=== PATIENT | female | born 1965 | race Caucasian/White ===

== ENCOUNTER 2020-03-08 17:41 | Outpatient (REF) | payer BC, SELFPAY ==
--- NOTE | 2020-03-08 17:46 | MM_ITS ---
EXAMINATION: MM SCREENING DIGITAL MAMMOGRAPHY, BILATERAL CLINICAL INFORMATION: Screening. Asymptomatic. The lifetime risk of breast cancer based on the Tyrer-Cuzick Model is 7%. COMPARISON: Mammography: 09/12/2016, 08/13/2014 TECHNIQUE: Digital mammography is performed in craniocaudal and mediolateral oblique views along with computer-aided detection (CAD). Additional exaggerated left CC view is provided. FINDINGS: There are scattered areas of fibroglandular density (ACR BI-RADS breast composition Category b). There are no significant masses, abnormal calcifications, or other abnormalities. The axilla and skin contours are unremarkable. IMPRESSION: No mammographic evidence of malignancy. ASSESSMENT: BI-RADS 1: Negative RECOMMENDATION: Routine annual mammography screening. This patient's information was entered into a reminder system with a target due date for their next mammogram.
== END 2020-03-08 17:42 | disposition home or self-care (01) ==
LOC: HO.MAMMO 17:41
PROVIDERS: PCP Internal Medicine; Visit Provider Internal Medicine
DX: Z12.31 Encounter for screening mammogram for malignant neoplasm of breast (principal)
CPT/HCPCS: 77067

== ENCOUNTER 2020-03-17 00:46 | Emergency (ER) | payer BC, SELFPAY ==
[2020-03-17 00:55] VITALS: BP 122/80; PULSE 90; RESP 16; TEMP 35.8; O2SAT 97; BMI 38.5
--- NOTE | 2020-03-17 02:12 | ED.GENADULT ---
HPI - General Adult General Chief complaint: Upper Respiratory Symptoms Stated complaint: Sore throat/sob/body aches Time Seen by Provider: 03/17/20 02:04 Source: patient Mode of arrival: ambulatory Limitations: no limitations History of Present Illness HPI narrative: Patient comes in complaining of sore throat for a few days. Her grandson and sever the family members tested positive for COVID-19, requesting coming 19 test. Patient denies fever chills no cough no shortness of breath complaint: upper respiratory symptoms, sore throat, requesting COVID test Onset (ago): day(s) Related Data Allergies Allergy/AdvReac Type Severity Reaction Status Date / Time No Known Allergies Allergy Unverified 02/19/20 16:57 [No Known Allergies*] Review of Systems Review of Systems: Constitutional : No Weight loss, No Fever, No Chills, No Night Sweats, of fatigue and generalized ENT/Mouth : No Hearing loss, No Ear Pain, No Nasal Congestion, No Sinus Pain, No Hoarseness, moderate sore throat, No Rhinorrhea, No Swallowing Difficulty Eyes: No Eye Pain, No Swelling, No Redness, No Foreign Body, No Discharge, No Vision Changes Cardiovascular : No Chest Pain, No SOB, No Dyspnea on Exertion, No Orthopnea, No Edema, No Palpitations Respiratory : No Cough, No Sputum, No Wheezing, No Smoke Exposure, No Dyspnea Gastrointestinal : No Nausea, No Vomiting, No Diarrhea, No Constipation, No abdominal Pain, No Hematochezia, No Melena Genitourinary : no irregular bleeding, No Dysuria, No Urinary Frequency, No Hematuria, No Urinary Incontinence, No Urgency, No Flank Pain, No Urinary Flow Changes, No Hesitancy Musculoskeletal : No joint pain, No Myalgias, No Joint Swelling Skin : No Skin Lesions, No rash Neuro : No Weakness, No Numbness, No Paresthesias, No Loss of Consciousness, No Dizziness, No Headache Psych : No Anxiety/Panic, No Depression, No SI/HI/AH/VH, No Social Issues, Heme/Lymph: No Bruising, No Bleeding,No Lymphadenopathy Endocrine : No Polyuria, No Polydipsia, No Temperature Intolerance PMFSH Social History Social History Advance Directives: No Advance Directives Information Provided: No Physical Exam Vital Signs: Vital Signs: Vital Signs Temp Pulse Resp BP Pulse Ox 03/17/20 00:55 96.5 F L 90 16 122/80 97 Body Mass Index 38.5 Appearance: Alert. Oriented X3. No acute distress. Eyes: Pupils equal, round and reactive to light. ENT: Pharynx normal. Neck: Normal inspection. Neck supple. No lymph nodes noted. No crepitus CVS: Normal heart rate and rhythm. Pulses normal. Normal S1 and S2 Respiratory: No respiratory distress. Breath sounds normal. No Wheezing. No rales Abdomen: Soft and nontender. No rigidity. No distention. good BS x4 Skin: Skin warm and dry. Normal skin color. Normal skin turgor. Extremities: No lower extremity edema. No lower extremity edema. No Lacerations. No Rash Neuro: Oriented X 3. No motor deficit. No sensory deficit. Moving all extermities. No slurred speech. Medical Decision Making MDM Narrative Medical decision making narrative: I discussed with the patient that she will Be tested for COVID-19, patient instructed to follow-up with her primary care physician. Differential Diagnosis Differential Diagnosis: upper respiratory infection Discharge Plan Discharge Clinical Impression: Viral infection, Pharyngitis Patient Disposition: Home, Self-Care Instructions: Viral Syndrome (ED) Additional Instructions: please remain self isolated until you get your COVID-19 results. Stand Alone Forms: Work/School Release
== END 2020-03-17 02:43 | disposition home or self-care (01) ==
PROVIDERS: Emergency Provider Emergency Medicine; PCP Internal Medicine
DX: B34.9 Viral infection, unspecified (principal); J02.9 Acute pharyngitis, unspecified; Z20.828 Contact with and (suspected) exposure to other viral communicable diseases
CPT/HCPCS: 87635; 99283

== ENCOUNTER 2020-06-18 10:56 | Emergency (ER) | payer BC, SELFPAY ==
[2020-06-18 11:27] VITALS: BP 131/86; PULSE 92; RESP 18; TEMP 36.8; O2SAT 98; BMI 39.0
--- NOTE | 2020-06-18 12:16 | ECG_ITS ---
Test Reason : DIZZYNESS Blood Pressure : / mmHG Vent. Rate : 087 BPM Atrial Rate : 087 BPM P-R Int : 148 ms QRS Dur : 082 ms QT Int : 392 ms P-R-T Axes : 046 030 045 degrees QTc Int : 471 ms Sinus rhythm with occasional Premature ventricular complexes Otherwise normal ECG When compared with ECG of 08-MAY-2018 10:45, Premature ventricular complexes are now Present Referred By: Joleen Glynn Electronically Signed By:VALENTE SIMONS MD
--- NOTE | 2020-06-18 12:17 | CT_ITS ---
EXAMINATION: CT BRAIN AND CT CERVICAL SPINE WITHOUT CONTRAST. CLINICAL INFORMATION: Dizziness. COMPARISON: None TECHNIQUE: 5 mm thin axial and reformatted 2 mm thin sagittal and coronal images of abdomen were obtained. Subsequently axial 3 mm thin and reformatted 2 mm thin sagittal and coronal images of cervical spine were obtained. DLP [id number] FINDINGS: BRAIN: There is no acute intra-axial, extra-axial bleed, masses or midline shift. There is no acute infarction in evolution. The garrido to white matter differentiation is preserved. The lateral ventricles are symmetrical in size and configuration without enlargement. The garrido to white matter difference is maintained. Bone windows reveal reveal no calvarial abnormality. There is no scalp soft tissue abnormality. Bilateral paranasal sinuses and mastoid air cells are well-aerated. CERVICAL SPINE: On sagittal reconstructed images there is mild straightening of cervical lordosis. The vertebral heights and alignment appears normal. Mild loss of C4-C5 and C5-C6 disc heights with mild ventral and posterior spondylosis. Craniovertebral junction and C1-C2 alignment is normal. No visible acute fracture, dislocation or subluxation seen. The prevertebral and paravertebral soft tissues are normal. The thyroid gland has been surgically removed. Submandibular and partially visualized parotid glands are unremarkable. The airway is widely patent. The lung apices are clear. CT/CT cervical spine wo con IMPRESSION: No acute intracranial process seen. No visible acute fracture, dislocation or subluxation of cervical spine.
--- NOTE | 2020-06-18 12:30 | ED.DIZZY ---
HPI - Dizziness General Chief Complaint: Dizziness Stated Complaint: dizziness Time Seen by Provider: 06/18/20 12:15 Source: patient Mode of arrival: ambulatory Limitations: no limitations History of Present Illness HPI Narrative: 55 y/o female with history of DM, HTN, hyperthyroidism, migraines, kidney stones, HLD who presents with episodic dizziness that started yesterday morning. She states it feels like the room is spinning and she gets very lightheaded, especially when she moves her head to the right. She also reports right sided neck pain that is extending into the back of her head and causing a fullness/headache. She denies trauma. She denies numbness, weakness. She feels unsteady on her feet when she gets up too fast. She has been eating/drinking normally. No fever, chills, N/V/D. MD elicited complaint: dizziness Onset (ago): day(s) Timing: awoke with symptoms, intermittent and episodic Severity: moderate Description: sense of movement, room spinning and lightheadedness History of similar symptoms: No Exacerbating factors: movement/ambulation and change in body position Relieving factors: remaining still and keeping eyes closed Associated symptoms: denies other symptoms Related Data Previous Rx's Medication Instructions Recorded amoxicillin-pot clavulanate 1 tab PO BID #14 tab 06/18/20 [Augmentin] cyclobenzaprine 10 mg PO TID PRN #10 tab 06/18/20 meclizine 25 mg PO TID PRN #10 tab 06/18/20 Allergies Allergy/AdvReac Type Severity Reaction Status Date / Time No Known Allergies Allergy Unverified 02/19/20 16:57 [No Known Allergies*] Review of Systems Review of Systems: Constitutional: No Fever, No Chills ENT/Mouth: No sore throat, No Rhinorrhea, No Swallowing Difficulty Eyes: No Eye Pain, No Swelling, No Redness Cardiovascular: No Chest Pain, No SOB, No Orthopnea, No Edema Respiratory: No Cough, No Sputum, No Wheezing, No dyspnea Gastrointestinal: No Nausea, No Vomiting, No Diarrhea, No abdominal Pain Genitourinary: No Dysuria, No Urinary Frequency, No Hematuria Musculoskeletal: No joint pain, + Myalgias (right neck) Skin: No Skin Lesions, No rash Neuro: No Weakness, No Numbness, + Dizziness, + Headache Psych: No Anxiety/Panic, No Depression Heme/Lymph: No Bruising, No Lymphadenopathy Endocrine: No Polyuria, No Polydipsia [facility] Past Medical History Attestation statement: The following information was validated with the patient. Medical History Cervical dysplasia Diabetes Hypertension Hyperthyroidism Kidney stones Social History Social History Alcohol intake: never Smoked in Last 30 Days: No Use of substances other than those prescribed or required for medical reasons: No Advance Directives: No Advance Directives Information Provided: No Physical Exam Vital Signs: Vital Signs: Last Vital Signs Temp 98.3 F 06/18/20 11:27 Pulse 88 06/18/20 15:19 Resp 18 06/18/20 11:27 BP 151/91 H 06/18/20 15:19 Pulse Ox 98 06/18/20 11:27 Body Mass Index 39.0 Appearance: Alert. Oriented X3. No acute distress. Eyes: Pupils equal, round and reactive to light. ENT: Pharynx normal. Right TM with fluid behind TM, no ertythema or bulging, Neck: Normal inspection. right lateral neck with tenderness along SCM and posterior soft tissues. painful ROM to the left. no cervical spinal tenderness. CVS: Normal heart rate and rhythm. Pulses normal. Respiratory: No respiratory distress. Breath sounds normal. Abdomen: Soft and nontender. +BS x4 Skin: Skin warm and dry. Normal skin color. Normal skin turgor. No rashes. Extremities: No lower extremity edema. Neuro: Oriented X 3. No motor deficit. No sensory deficit. Normal finger to nose and normal heel to adams bilaterally. Gait is steady Course Course Course Narrative: 55 y/o female presenting wtih episodic dizziness and feeling like the room is spinning. History and exam consistent with vertigo - will give dose of Meclizine now and reassess. Will check basic labs and CT scan to r/o CVA although suspicion is low. Her neuro exam is benign. Reevaluation(s) Reevaluation #1: CT head/cervical spine is negative. She feels improved after Meclizine. Labs are pending. Reevaluation #2: Labs show mild new anemia with normal MCV. BUN mildly elevated consistent with mild dehydration. Given 2nd dose of Meclizine with some improvement. Given fluid behind the TM will treat, likely causing BPPV. She is stable for discharge. [facility] - Dizziness Medical Records Attestation: I reviewed the patient's medical records. Lab Data Attestation: I reviewed the patient's lab results. Result diagrams: 06/18/20 14:13 06/18/20 14:13 Labs: Lab Results 06/18/20 06/18/20 06/18/20 Range/Units 14:13 14:13 14:13 WBC 11.0 H (4.8-10.8) X10*3/uL RBC 3.52 L (4.20-5.50) X10*6/uL Hgb 10.8 L (12.0-16.0) g/dl Hct 33.5 L (37-47) % MCV 95.2 (80-98) fL MCH 30.7 (27.0-33.0) pg MCHC 32.2 (31.0-35.0) g/dl RDW 12.4 (11.0-16.0) % Plt Count 280 (160-400) X10*3/uL MPV 11.6 (9.4-12.3) fL Immature Gran % (Auto) 0.5 H (0.0-0.4) % Neut % (Auto) 66.2 (45-73) % Lymph % (Auto) 25.0 (20-40) % Stonewall % (Auto) 4.0 (2-11) % Eos % (Auto) 3.7 (0-4) % Baso % (Auto) 0.6 (0-2) % Lymph # (Auto) 2.8 (1.2-4.9) X10*3/uL [place] # (Auto) 0.4 (0.1-1.2) X10*3/uL Eos # (Auto) 0.4 (0.0-0.4) X10*3/uL Baso # (Auto) 0.1 (0.0-0.2) X10*3/uL Abs Immat Gran (auto) 0.06 H (0.00-0.03) X10*3/uL Absolute Neuts (auto) 7.3 (2.0-8.3) X10*3/uL Absolute Nucleated RBC 0.000 (0.0-0.012) X10*3/uL Nucleated RBC % (auto) 0.0 (0.0-0.2) /100WBC Hold Blue Top SEE NOTE Sodium 141 (135-145) mmol/L Potassium 4.3 (3.3-5.1) mmol/l Chloride 106 (96-108) mmol/L Carbon Dioxide 25 (22-29) mmol/L Anion Gap 14 (12-20) BUN 29 H (9-16) mg/dL Creatinine 0.96 (0.5-1.4) mg/dL Estim Creat Clear Calc 84.0 Estimated GFR > 60 Random Glucose 157 H (60-115) mg/dL Calcium 9.1 (8.4-10.2) mg/dL Magnesium 1.6 (1.6-2.6) mg/dL Total Bilirubin 0.3 (0.0-1.0) mg/dL Direct Bilirubin < 0.2 (0.0-0.5) mg/dL AST 12 (5-31) U/L ALT 16 (0-31) U/L Alkaline Phosphatase 95 (39-117) U/L Total Protein 6.7 (6.5-8.0) g/dL Albumin 4.0 (3.5-5.0) g/dL COVID-19 (FELIPE) (Negative) COVID-19 Clin Com 06/18/20 Range/Units 15:24 WBC (4.8-10.8) X10*3/uL RBC (4.20-5.50) X10*6/uL Hgb (12.0-16.0) g/dl Hct (37-47) % MCV (80-98) fL MCH (27.0-33.0) pg MCHC (31.0-35.0) g/dl RDW (11.0-16.0) % Plt Count (160-400) X10*3/uL MPV (9.4-12.3) fL Immature Gran % (Auto) (0.0-0.4) % Neut % (Auto) (45-73) % Lymph % (Auto) (20-40) % Stonewall % (Auto) (2-11) % Eos % (Auto) (0-4) % Baso % (Auto) (0-2) % Lymph # (Auto) (1.2-4.9) X10*3/uL Stonewall # (Auto) (0.1-1.2) X10*3/uL Eos # (Auto) (0.0-0.4) X10*3/uL Baso # (Auto) (0.0-0.2) X10*3/uL Abs Immat Gran (auto) (0.00-0.03) X10*3/uL Absolute Neuts (auto) (2.0-8.3) X10*3/uL Absolute Nucleated RBC (0.0-0.012) X10*3/uL Nucleated RBC % (auto) (0.0-0.2) /100WBC Hold Blue Top Sodium (135-145) mmol/L Potassium (3.3-5.1) mmol/l Chloride (96-108) mmol/L Carbon Dioxide (22-29) mmol/L Anion Gap (12-20) BUN (9-16) mg/dL Creatinine (0.5-1.4) mg/dL Estim Creat Clear Calc Estimated GFR Random Glucose (60-115) mg/dL Calcium (8.4-10.2) mg/dL Magnesium (1.6-2.6) mg/dL Total Bilirubin (0.0-1.0) mg/dL Direct Bilirubin (0.0-0.5) mg/dL AST (5-31) U/L ALT (0-31) U/L Alkaline Phosphatase (39-117) U/L Total Protein (6.5-8.0) g/dL Albumin (3.5-5.0) g/dL COVID-19 (FELIPE) Negative (Negative) COVID-19 Clin Com See Note ECG Data Attestation: I personally reviewed and interpreted this ECG as follows: ECG interpretation date: 06/18/20 ECG interpretation time: 13:18 Interpretation: normal sinus rhythm, HR 87 bpm, occasional PVC's noted, normal OR interval, no ST elevations Discharge Plan Discharge Clinical Impression: Fluid level behind tympanic membrane of right ear Benign paroxysmal positional vertigo Qualifiers: Laterality: right Qualified Code(s): H81.11 - Benign paroxysmal vertigo, right ear Patient Disposition: Home, Self-Care Instructions: Benign Paroxysmal Positional Vertigo (ED), Cervical Sprain (ED) Additional Instructions: Your CT scans today were normal. Your blood workup showed new mild anemia and mild dehydration. Follow up with your doctor. Take the prescribed medication as needed for dizziness. There is fluid behind your ear drum in your right ear, take the prescribed antibiotics for this. It should help the dizziness resolve. Rest and stay hydrated. Drink plenty of water. Until your symptoms are improved, when you change positions make sure to do so slowly. Follow up with your doctor early next week. If your symptoms persist or worsen or if you develop any new or concerning symptom seek medical attention or come back to the ER right away for further evaluation. Prescriptions: New meclizine 25 mg tablet 25 mg PO TID PRN (Reason: dizziness) Qty: 10 RF: 0 cyclobenzaprine 10 mg tablet 10 mg PO TID PRN (Reason: muscle spasm) Qty: 10 RF: 0 amoxicillin-pot clavulanate [Augmentin] 875-125 mg tablet 1 tab PO BID Qty: 14 RF: 0 Referrals: Ezequiel Weller [Physician] - 3 days (BPPV) Stand Alone Forms: Work/School Release Interventions: ED Discharge Assessment Last Done: 06/18/20 16:49 Discharge Date/Time: 06/18/20 16:49
[2020-06-18] MEDS: Lidocaine 4 % Patch ADH..PATCH 1 PATCH TRANSDERMA (13:38)
[2020-06-18] MEDS: Acetaminophen 325 MG TABLET 975 MG PO (13:38)
[2020-06-18] MEDS: Meclizine HCl 25 MG TABLET PO ×2 (13:38→16:14)
[2020-06-18 14:30] LABS: MANUAL DIFF FLAG NO
[2020-06-18 14:36] LABS: Basophils Absolute Auto 0.1 X10*3/uL (0.0-0.2); Basophils Percent Auto 0.6 % (0-2); Eosinophils Absolute Auto 0.4 X10*3/uL (0.0-0.4); Eosinophils Percent Auto 3.7 % (0-4); Hematocrit 33.5 % (37-47); Hemoglobin 10.8 g/dl (12.0-16.0); Imm Gran Abs Auto 0.06 X10*3/uL (0.00-0.03); Imm Gran Pct Auto 0.5 % (0.0-0.4); Lymphocytes Absolute Auto 2.8 X10*3/uL (1.2-4.9); Mean Corpuscular HGB Conc 32.2 g/dl (31.0-35.0); Mean Corpuscular Hemoglobin 30.7 pg (27.0-33.0); Mean Corpuscular Volume 95.2 fL (80-98); Mean Platelet Volume 11.6 fL (9.4-12.3); Monocytes Absolute Auto 0.4 X10*3/uL (0.1-1.2); Neutrophils Absolute Auto 7.3 X10*3/uL (2.0-8.3); Neutrophils Percent Auto 66.2 % (45-73); Platelet Count 280 X10*3/uL (160-400); Red Blood Count 3.52 X10*6/uL (4.20-5.50); Red Cell Distribution Width 12.4 % (11.0-16.0)
[2020-06-18 15:02] LABS: Alanine Aminotransferase 16 U/L (0-31); Alkaline Phosphatase 95 U/L (39-117); Anion Gap 14 (12-20); Aspartate Amino Transferase 12 U/L (5-31); Bilirubin Direct < 0.2 mg/dL (0.0-0.5); Bilirubin Total 0.3 mg/dL (0.0-1.0); Blood Urea Nitrogen 29 mg/dL (9-16); Calcium 9.1 mg/dL (8.4-10.2); Carbon Dioxide 25 mmol/L (22-29); Chloride 106 mmol/L (96-108); Estimated Glomerular Filt Rate > 60; Glucose Random 157 mg/dL (60-115); Magnesium 1.6 mg/dL (1.6-2.6); Potassium 4.3 mmol/l (3.3-5.1); Sodium 141 mmol/L (135-145); Total Protein 6.7 g/dL (6.5-8.0)
[2020-06-18 15:09] VITALS: BP 133/81; PULSE 85
[2020-06-18 15:18] VITALS: BP 138/90; PULSE 93
[2020-06-18 15:19] VITALS: BP 151/91; PULSE 88
[2020-06-18 15:57] LABS: COVID-19 Test Negative (Negative); IDNOW Serial# 9DD0AD1C
== END 2020-06-18 16:49 | disposition home or self-care (01) ==
PROVIDERS: Physician Assistant; Emergency Provider Emergency Medicine; PCP Internal Medicine
DX: H81.11 Benign paroxysmal vertigo, right ear (principal); H93.91 Unspecified disorder of right ear; Z20.822 Contact with and (suspected) exposure to COVID-19; S13.4XXA Sprain of ligaments of cervical spine, initial encounter; X58.XXXA Exposure to other specified factors, initial encounter; E11.9 Type 2 diabetes mellitus without complications; I10 Essential (primary) hypertension; Y93.9 Activity, unspecified; Y92.9 Unspecified place or not applicable; Y99.9 Unspecified external cause status
CPT/HCPCS: 36415; 70450; 72125; 80048; 80076; 83735; 85025; 87635; 93005; 99284

== ENCOUNTER 2020-12-03 10:26 | Emergency (ER) | payer BC, SELFPAY ==
--- NOTE | ~2020-12-03 | XR_ITS ---
EXAMINATION: LEFT HUMERUS AND LEFT ELBOW X-RAY CLINICAL INFORMATION: Pain COMPARISON: None TECHNIQUE: 2 views of the left humerus and 3 views of the left elbow FINDINGS: Left humerus: Bone alignment is normal. No fracture or dislocation is seen. Joint spaces are normal. Soft tissues are normal. Left elbow: Bone alignment is normal. No fracture or dislocation is seen. Joint spaces are normal. There is no joint effusion. There is a small osteophyte at the triceps tendon insertion to the olecranon. XR/XR humerus LT IMPRESSION: Unremarkable exam.
--- NOTE | ~2020-12-03 | XR_ITS ---
EXAMINATION: LEFT HUMERUS AND LEFT ELBOW X-RAY CLINICAL INFORMATION: Pain COMPARISON: None TECHNIQUE: 2 views of the left humerus and 3 views of the left elbow FINDINGS: Left humerus: Bone alignment is normal. No fracture or dislocation is seen. Joint spaces are normal. Soft tissues are normal. Left elbow: Bone alignment is normal. No fracture or dislocation is seen. Joint spaces are normal. There is no joint effusion. There is a small osteophyte at the triceps tendon insertion to the olecranon. XR/XR elbow LT 2V IMPRESSION: Unremarkable exam.
[2020-12-03 10:31] VITALS: BP 120/63; PULSE 114; RESP 18; TEMP 36.9; O2SAT 96; BMI 38.4
--- NOTE | 2020-12-03 12:51 | ED.EXTPRO ---
HPI - Extremity Problem General Chief complaint: Extremity Problem Stated complaint: L ARM PAIN NO KNOWN INJ Time Seen by Provider: 12/03/20 10:54 Source: patient Mode of arrival: ambulatory Limitations: no limitations History of Present Illness HPI Narrative: 55-year-old female with a past medical history of hyperthyroidism, hypertension, diabetes here with complaints of pain to the left upper extremity for more than 3 weeks. Patient tells me initially she had pain which radiated from the elbow down to the forearm and into the 4th and 5th fingers with paresthesias. She was seen by Dr. Monreal and had a carpal tunnel repair 2 and half weeks ago. However, postoperatively she is continuing to have pain more focused in the left elbow. Pain is worsened with extension of the arm. She denies any additional paresthesias. No fevers or chills or swelling or redness or warmth. Right-hand dominant Related Data Previous Rx's Medication Instructions Recorded amoxicillin-pot clavulanate 1 tab PO BID #14 tab 06/18/20 [Augmentin] cyclobenzaprine 10 mg PO TID PRN #10 tab 06/18/20 meclizine 25 mg PO TID PRN #10 tab 06/18/20 oxycodone 5 mg PO Q8H PRN #8 tab 12/03/20 Allergies Allergy/AdvReac Type Severity Reaction Status Date / Time No Known Allergies Allergy Verified 12/03/20 11:14 [No Known Allergies*] Review of Systems Review of Systems: Yes all other systems are reviewed and are negative Constitutional: Constitutional: Reports no additional constitutional complaints, Denies body ache(s), Denies chills, Denies fever(s), Denies headache(s) and Denies weakness Eyes: Eyes: Reports no additional eye complaints and Denies change in vision ENT: Reports system reviewed and no additional complaints, except as documented, Denies dizziness, Denies headache(s), Denies nasal congestion, Denies nasal discharge and Denies neck pain Cardiovascular: Cardiovascular: Reports no additional cardiovascular complaints, Denies chest pain, Denies leg edema and Denies dyspnea Respiratory: Respiratory: Reports no additional respiratory complaints, Denies cough and Denies dyspnea Gastrointestinal: Gastrointestinal: Reports no additional gastrointestinal complaints, Denies abdominal pain, Denies diarrhea, Denies nausea and Denies vomiting Genitourinary: Genitourinary: Reports no additional female genitourinary complaints and Denies urinary incontinence Musculoskeletal: Musculoskeletal: Reports no additional musculoskeletal complaints, Denies back pain, Reports arthralgias, Denies joint swelling, Reports limited range of motion, Denies neck pain, Denies numbness and Denies tingling Integumentary/Breasts: Skin/Breast: Reports system reviewed and no additional complaints, except as docu and Denies rash Neurologic: Denies Abnormal speech present, Denies dizziness, Denies headache(s), Denies numbness, Denies tingling and Denies weakness PMFSH Past Medical History Attestation statement: The following information was validated with the patient. Source: old records reviewed and nursing notes reviewed Medical History Cervical dysplasia Diabetes Hypertension Hyperthyroidism Kidney stones Social History Social History Alcohol intake: never Advance Directives: Yes Advance Directives Information Provided: Yes Advance Directives on File: No Physical Exam Vital Signs: Vital Signs: Last Vital Signs Temp 98.4 F 12/03/20 10:31 Pulse 114 H 12/03/20 10:31 Resp 18 12/03/20 10:31 BP 120/63 12/03/20 10:31 Pulse Ox 96 12/03/20 10:31 Body Mass Index 38.4 Const: General: cooperative, healthy appearing, comfortable and no acute distress Orientation/consciousness: patient oriented x3 Limitations: no limitations HENMT: Head: Yes normal to inspection Ears: hearing grossly normal bilaterally General nose exam: Normal external nose present Face and sinus: Yes normal facial exam Mouth: Normal oral and palatal mucosa present Throat: Yes posterior oropharynx normal Eyes: General: appearance normal, both eyes and all related structures Pupils: Equal, round and reactive pupils present Neck: Neck: Yes normal visual inspection Chest: Chest palpation & inspection: normal inspection of the chest Resp: Effort & Inspection: normal respiratory effort Auscultation: clear to auscultation bilaterally Cardio: Rate: regular rate Rhythm: regular rhythm Peripheral pulses: Peripheral pulses 2+ throughout GI: Inspection: Yes normal to inspection Palpation (GI): Soft to palpation and nontender Auscultation: normal bowel sounds Back/Spine/Pelvis: Thoracic/Lumbar Spine: thoracic and lumbar spine normal to inspection Skin: General skin exam: no rashes or lesions noted Neuro: General: patient oriented x3, no focal motor deficits and normal sensation to monofilament Cranial nerves: Yes Equal, round and reactive pupils present Cognition (Neuro): normal cognition Speech: No Abnormal speech present Gait exam (Neuro): Normal gait present Motor exam (neuro): 5/5 motor strength present throughout Extrem: Other: tenderness over the lateral elbow and distal lateral humerus. Pain with extension of the elbow. Denies paraesthesias. Palpable distal pulses. No erythema or warmth General: Yes normal to inspection Course Course Course Narrative: 55-year-old female here with left upper extremity pain for several weeks. Thought it was secondary to carpal tunnel apparent so she underwent a repair with Dr. Monreal approximately 2.5 weeks ago with persistent pain more focal now on the left elbow. Tenderness over the lateral elbow which is worsened with extension of the arm. Consistent with lateral epicondylitis. X-rays are also showing a bone spur over the triceps tendon which may be contributing to the patient's pain. We recommended rice, elbow brace and follow up with primary versus Orthopedics. Reviewed worrisome signs and symptoms of when to return to the emergency department. Comfortable discharge home. MDM - Extremity (Nontraumatic) Medical Records Attestation: I reviewed the patient's medical records. Lab Data Attestation: I reviewed the patient's lab results. Imaging Data left humerus/elbow: Attestation: I personally reviewed and interpreted this imaging study as follows: Radiologist's impression: [address] [id number] ReportSigned Patient: Lisette Ortega R#: [id number]: 1965Acct:[id number]/Sex: 55 / FADM Date: 12/03/20Loc: HO.EDAttending Dr: Ordering Physician: JOSÉ LUNDBERG NP Date of Service: 12/03/20 Procedure(s): XR humerus LT Accession Number(s): [id number] cc: JOSÉ LUNDBERG NP~ EXAMINATION: LEFT HUMERUS AND LEFT ELBOW X-RAY CLINICAL INFORMATION: Pain COMPARISON: None TECHNIQUE: 2 views of the left humerus and 3 views of the left elbow FINDINGS: Left humerus: Bone alignment is normal. No fracture or dislocation is seen. Joint spaces are normal. Soft tissues are normal. Left elbow: Bone alignment is normal. No fracture or dislocation is seen. Joint spaces are normal. There is no joint effusion. There is a small osteophyte at the triceps tendon insertion to the olecranon. XR/XR humerus LT IMPRESSION: Unremarkable exam. Discharge Plan Discharge Clinical Impression: Bone spur Patient Disposition: Home, Self-Care Instructions: Tennis Elbow (ED) Additional Instructions: there is a bone spur where your triceps tendon attaches to your elbow out see attached brace Limit use of the arm Heat or ice Follow-up with your primary care doctor Prescriptions: New oxycodone 5 mg tablet 5 mg PO Q8H PRN (Reason: pain) Qty: 8 RF: 0 No Action meclizine 25 mg tablet 25 mg PO TID PRN (Reason: dizziness) Qty: 10 RF: 0 cyclobenzaprine 10 mg tablet 10 mg PO TID PRN (Reason: muscle spasm) Qty: 10 RF: 0 amoxicillin-pot clavulanate [Augmentin] 875-125 mg tablet 1 tab PO BID Qty: 14 RF: 0 Referrals: Andi Burns MD [Primary Care Provider] - 2 days Interventions: ED Discharge Assessment Last Done: 12/03/20 12:37 Discharge Date/Time: 12/03/20 12:38
== END 2020-12-03 12:38 | disposition home or self-care (01) ==
PROVIDERS: Emergency Provider Emergency Medicine Emergency Medical Services; PCP Internal Medicine
DX: M77.8 Other enthesopathies, not elsewhere classified (principal); I10 Essential (primary) hypertension; E11.9 Type 2 diabetes mellitus without complications
CPT/HCPCS: 73060; 73070; 99283

== ENCOUNTER → 2021-03-21 09:09 | Outpatient (BNVA) | payer OTHER, SELFPAY | PROVIDERS: PCP Internal Medicine; Visit Provider Obstetrics & Gynecology ==

== ENCOUNTER 2022-03-23 09:39 | Outpatient (REF) | payer BC, SELFPAY ==
[2022-03-28 20:41] LABS: HPV mRNA E6/E7 rflx Not Detected (Not Detected)
== END 2022-03-23 09:40 | disposition home or self-care (01) ==
LOC: HO.LNP 09:39
PROVIDERS: Visit Provider Obstetrics & Gynecology
DX: Z01.419 Encounter for gynecological examination (general) (routine) without abnormal findings (principal); N95.0 Postmenopausal bleeding
CPT/HCPCS: 87624; 88142

== ENCOUNTER 2022-04-19 14:16 | Outpatient (REF) | payer BC, SELFPAY ==
--- NOTE | ~2022-04-19 | MM_ITS ---
EXAMINATION: MM SCREENING DIGITAL BREAST TOMOSYNTHESIS, BILATERAL CLINICAL INFORMATION: Screening. Asymptomatic. The lifetime risk of breast cancer based on the Tyrer-Cuzick Model is 8%. COMPARISON: Mammography: 03/08/2020, 09/12/2016, 08/13/2014 TECHNIQUE: Digital breast tomosynthesis is performed in both the craniocaudal and mediolateral oblique views along with computer-aided detection (CAD). Synthesized 2D images are generated from the tomosynthesis. FINDINGS: There are scattered areas of fibroglandular density (ACR BI-RADS breast composition Category b). There are no significant masses, abnormal calcifications, or other abnormalities. Breast tissue composition borders on predominantly fatty. Background stromal and fibroglandular densities are stable. No developing density. The axilla and skin contours are unremarkable. MM/MM tomosynthesis screening BI IMPRESSION: No mammographic evidence of malignancy. ASSESSMENT: BI-RADS 1: Negative RECOMMENDATION: Routine annual mammography screening. This patient's information was entered into a reminder system with a target due date for their next mammogram.
== END 2022-04-19 14:17 | disposition home or self-care (01) ==
LOC: HO.MAMMO 14:16
PROVIDERS: PCP Internal Medicine; Visit Provider Obstetrics & Gynecology
DX: Z12.31 Encounter for screening mammogram for malignant neoplasm of breast (principal)
CPT/HCPCS: 77063; 77067

== ENCOUNTER 2022-05-03 10:25 | Outpatient (REF) | payer BC, SELFPAY ==
--- NOTE | ~2022-05-03 | US_ITS ---
EXAMINATION: US PELVIS COMPLETE CLINICAL INFORMATION: Postmenopausal bleeding COMPARISON: CT abdomen pelvis 03/03/2019 TECHNIQUE: Transabdominal and transvaginal imaging was performed. FINDINGS: The uterus is of normal size and echogenicity measuring 9.5 x 4.8 x 5.2 cm. A regular homogeneous endometrium is identified measuring 0.4 cm. Prominence of a subendometrial vessel is seen however without definite underlying polyp. Nabothian cysts in the cervix. Both ovaries are of normal size and echogenicity. The right measures 2.5 x 1.9 x 1.7 cm for a volume of 0.2 mL. The left measures 2.5 x 1.4 x 1.1 cm for a volume of 2.0 mL. Dilated tubular fluid-filled structure in the right adnexa may reflect a mild hydrosalpinx. There is no pelvic free fluid. US/US pelvic and transvaginal IMPRESSION: 1. Endometrium measures 4 mm in thickness. Prominence of a subendometrial vessel is seen however without definite underlying polyp. Recommend correlation with clinical exam and if any clinical concern for a polyp, a sonohysterogram could be obtained. 2. Dilated tubular fluid-filled structure in the right adnexa may reflect a mild hydrosalpinx.
== END 2022-05-03 10:26 | disposition home or self-care (01) ==
LOC: HO.US 10:25
PROVIDERS: Visit Provider Obstetrics & Gynecology
DX: N95.0 Postmenopausal bleeding (principal)
CPT/HCPCS: 76830; 76856

== ENCOUNTER 2022-05-19 11:53 | Day surgery (SDC) | payer BC, SELFPAY ==
--- NOTE | 2022-05-18 09:22 | P.CONAN_ITS ---
Documented by User: Sri Ferrera NP 05/18/22 09:24 HPI - Anesthesia Eval Consult details Narrative: 57yo F for D&C Hysteroscopy,possible polypectomy/myomectomy with left labial lump excision PMFSH Active Problems Active Problems: All Active Problems (Updated 05/10/22 @ 10:34 by Brent Salcedo MD) Postmenopausal bleeding (Acute) Vulvar lump (Acute) Well woman exam (Acute) Cervical dysplasia (Acute) Kidney stones (Acute) Hyperthyroidism (Acute) Hypertension (Acute) Diabetes (Acute) Past Medical History Medical History Cervical dysplasia Diabetes Hypertension Hyperthyroidism Kidney stone on left side Kidney stone on right side Kidney stones Family History Family History Father Diabetes Mother Diabetes HTN (hypertension) Surgical History Surgical History H/O lithotripsy Hx of tubal ligation Social History Social History Alcohol intake: never Patient Tobacco Use Status: Former Tobacco user Quit Date: 2017 Tobacco use type: Cigarette Cigarettes Per Day: 20 Years Smoked: 30 Smoked in Last 30 Days: No Use of substances other than those prescribed or required for medical reasons: No Are you DNR?: No Advance Directives: No Advance Directives Information Provided: Yes Meds Allergies Allergy/AdvReac Type Severity Reaction Status Date / Time No Known Allergies Allergy Verified 05/19/22 12:16 [No Known Allergies*] Home Medications Medication Instructions Recorded Confirmed Last Taken Type atorvastatin 20 mg tablet 20 mg PO DAILY 03/21/21 05/19/22 Unknown History dulaglutide 0.75 mg/0.5 mL 0.75 mg subcut QWEEK 03/21/21 05/19/22 05/12/22 History subcutaneous pen injector (Trulicdolly) gabapentin 300 mg capsule 300 mg PO DAILY 03/21/21 05/19/22 Unknown History hydrochlorothiazide 25 mg tablet 25 mg PO DAILY 03/21/21 05/19/22 Unknown History insulin glargine 100 unit/mL (3 40 unit subcut QPM 03/21/21 05/19/22 05/17/22 22:00 History mL) subcutaneous pen (Lantus Solostar U-100 Insulin) levothyroxine 125 mcg capsule 125 mcg PO DAILY 03/21/21 05/19/22 05/19/22 09:00 History lisinopril 40 mg tablet 40 mg PO DAILY 03/21/21 05/19/22 Unknown History metformin 1,000 mg tablet 1,000 mg PO DAILY 03/21/21 05/19/22 05/18/22 History trazodone 50 mg tablet 50 mg PO NEEDED PRN Sleep 03/21/21 05/19/22 Unknown History Exam Exam Date and Time: May 18, 2022921 Assessment and Plan Assessment Anesthesia Assessment: Chart Reviewed Documented by User: Shira Armendariz MD 05/19/22 12:57 [facility] Past Medical History Medical History Cervical dysplasia Diabetes Hypertension Hyperthyroidism Kidney stone on left side Kidney stone on right side Kidney stones Family History Family History Father Diabetes Mother Diabetes HTN (hypertension) Surgical History Surgical History H/O lithotripsy Hx of tubal ligation History of Problems with Anesthesia: No Social History Social History Alcohol intake: never Patient Tobacco Use Status: Former Tobacco user Quit Date: 2017 Tobacco use type: Cigarette Cigarettes Per Day: 20 Years Smoked: 30 Smoked in Last 30 Days: No Use of substances other than those prescribed or required for medical reasons: No Are you DNR?: No Advance Directives: No Advance Directives Information Provided: Yes Meds Allergies Allergy/AdvReac Type Severity Reaction Status Date / Time No Known Allergies Allergy Verified 05/19/22 12:16 [No Known Allergies*] Home Medications Medication Instructions Recorded Confirmed Last Taken Type atorvastatin 20 mg tablet 20 mg PO DAILY 03/21/21 05/19/22 Unknown History dulaglutide 0.75 mg/0.5 mL 0.75 mg subcut QWEEK 03/21/21 05/19/22 05/12/22 History subcutaneous pen injector (Trulicity) gabapentin 300 mg capsule 300 mg PO DAILY 03/21/21 05/19/22 Unknown History hydrochlorothiazide 25 mg tablet 25 mg PO DAILY 03/21/21 05/19/22 Unknown History insulin glargine 100 unit/mL (3 40 unit subcut QPM 03/21/21 05/19/22 05/17/22 22:00 History mL) subcutaneous pen (Lantus Solostar U-100 Insulin) levothyroxine 125 mcg capsule 125 mcg PO DAILY 03/21/21 05/19/22 05/19/22 09:00 History lisinopril 40 mg tablet 40 mg PO DAILY 03/21/21 05/19/22 Unknown History metformin 1,000 mg tablet 1,000 mg PO DAILY 03/21/21 05/19/22 05/18/22 History trazodone 50 mg tablet 50 mg PO NEEDED PRN Sleep 03/21/21 05/19/22 Unknown History Exam Airway Mallampati Class: II (Edentulous) TM Dist: >3cm Neck ROM: Full Loose/Missing/Broken Teeth: Yes, Upper and Lower Heart: RRR Lungs: CTA Assessment and Plan Assessment Anesthesia Assessment: Anesthesia Plan Discussed Final Anesthetic Review History of Problems with Anesthesia: No NPO: Yes ASA Class: III Final Preanesthetic Review: Meds/Allgs Chart Reviewed, Consent Obtained/Reviewed and Anes Risks/Benef Reviewed Patient Risk: Intermediate Procedure Risk: Low Anesthetic Plan Anesthetic Plan: GA Disposition: Standard PACU
[2022-05-19] VITALS (7 sets, daily range): BP systolic 113–141; BP diastolic 71–83; PULSE 88–99; RESP 16–18; TEMP 36.3; O2SAT 93–100; BMI 39.2
[2022-05-19 12:14] LABS: Glucose, Whole Blood 183 mg/dL (60-115)
--- NOTE | 2022-05-19 12:27 | MHC.SHP ---
Pre-Procedural Eval Section A Date of Service: 05/19/22 The patient is an INPATIENT: No Changes since office visit: No Cold of Flu in the past 2 weeks, No New Medical Problems, No Changes in Medication and No Patient answered all questions The History & Physical has been completed within 30 days and I have reviewed it.: Yes Section B Chief Complaint: Postmenopausal bleeding,labial lump Allergies: Allergies Allergy/AdvReac Type Severity Reaction Status Date / Time No Known Allergies Allergy Verified 05/19/22 12:16 [No Known Allergies*] Plan Diagnosis/Plan: Unchanged I have reviewed the history and physical and performed a pertinent physical examination on my patient. No changes have occurred unless specified. Time Spent With Patient Time: Total time managing care of this patient today ____ minutes.
[2022-05-19] MEDS: Lactated Ringers 1,000 ML 100 ML IVCONT (12:41)
--- NOTE | 2022-05-19 13:45 | P.BOP_ITS ---
Brief Operative Note Date of Service: 05/19/22 Pre-op diagnosis: Postmenopausal bleeding, possible endometrial polyp Left labial lump Post-op diagnosis: same (Endometrial polyp and left labial sebaceous cyst) Procedure: Hysteroscopy D&C, Polypectomy Excision of left labial sebaceous cyst Surgeon: Brent Salcedo MD Anesthesia: GLMA Was an Public Health Teacher used for this Procedure?: No Estimated blood loss (mL): 0 Pathology: other (Endometrial Scrapping. Polyp, left labial sebaceous cyst wall) Condition: stable Disposition: PACU
--- NOTE | 2022-05-19 13:46 | P.OP_ITS ---
Operative Note Operative Note Date of Service: 05/19/22 Narrative: Preop Diagnosis: Postmenopausal bleeding, possible Endometrial polyp by US. Left labial lump Operation: Diagnostic Hysteroscopy, Dilataion & Curettage and polypectomy, excision of left sebaceous labial cyst wall Post Op Diagnosis: Endometrial Polyp, left labial sebaceous cyst wall QBL: Minimal Anesthesia: GLMA Surgeon: Brent Salcedo MD Mental Retardation Nurse: None Complication: None Pathology: Endometrial Scrapings, Endometrial polyp, left labial sebaceous cyst wall Procedure: The patient was put in the dorsal lithotomy position, scrubbed, and draped in the usual manner. A sterile speculum was inserted in the patient's vagina. The anterior lip of the cervix was grasped with a single tooth tenaculum. The cervix was dilated up to 5 mm, then the scope was inserted in the patient's uterus. Inspection revealed endometrial polyp. The Myosure Reach device was used; it was introduced through the operative channel and polypectomy done with no complications. The scope was then taken out from the uterine cavity, sharp curettings was carried on with minimal to moderate amount of tissues retrieved. At the end of the procedure, all instruments were taken out of the patient uterine and vaginal cavity. The single tooth tenaculum was removed and homeostasis was assured using pressure. Then attention was turned to the left labial lump where using #11 blade a longitudinal incision was done,bevaceous white secretions came out, using 2 Allis clamp the cyst wall was grasped and excised using a Metzenbaum scissors, the subcu layer was closed and the skin was reapproximated with 4-0 Vicryl. Hemostasis was assured. The patient tolerated the procedure well and was transferred to the PACU in a stable condition.
== END 2022-05-19 15:02 | disposition home or self-care (01) ==
PROVIDERS: PCP Internal Medicine; Visit Provider Obstetrics & Gynecology
PROC: 0UDB8ZZ Extraction of Endometrium, Via Natural or Artificial Opening Endoscopic (ICD-10-PCS; CPT 58558; principal; 2022-05-19 13:40)
DX: N95.0 Postmenopausal bleeding (principal); N84.0 Polyp of corpus uteri; N90.7 Vulvar cyst; I10 Essential (primary) hypertension; E03.9 Hypothyroidism, unspecified; E11.9 Type 2 diabetes mellitus without complications; Z79.4 Long term (current) use of insulin; Z79.899 Other long term (current) drug therapy; Z98.51 Tubal ligation status; Z87.891 Personal history of nicotine dependence
CPT/HCPCS: 58558; 11422; 82947; 88304; 88305; J1100; J1885; J2250; J2405; J3010

== ENCOUNTER → 2022-06-14 12:58 | Outpatient (BNVA) | payer BC, SELFPAY | PROVIDERS: PCP Internal Medicine; Visit Provider Obstetrics & Gynecology | DX: Z13.89 Encounter for screening for other disorder (principal) ==

== ENCOUNTER 2022-08-15 22:13 | Emergency (ER) | payer BC, SELFPAY ==
--- NOTE | ~2022-08-15 | CT_ITS ---
EXAMINATION: CT ABDOMEN AND PELVIS WITHOUT CONTRAST CLINICAL INFORMATION: Back pain. Left flank pain. COMPARISON: 03/03/2019 TECHNIQUE: Multidetector volumetric imaging was performed from the superior aspect of the liver through the pubic symphysis. Sagittal and coronal reformatted images were obtained on the technologist's workstation. This CT examination was performed using dose optimization techniques as appropriate, variously including the following: *Automated exposure control *Adjustment of mA and/or kV according to patient size (this includes techniques or standardized protocols for targeted exams where dose is matched to indication/reason for exam; i.e. extremities or head) *Use of iterative reconstruction technique DLP: 783 mGy-cm FINDINGS: LUNG BASES: The visualized lung bases are unremarkable. LIVER, GALLBLADDER, AND BILIARY TREE: The liver is normal in size, shape, and pathology. Diffuse hepatic steatosis. No focal hepatic lesion or biliary ductal dilatation is present. The gallbladder is unremarkable with no evidence of radiopaque gallstones, gallbladder wall thickening, or obvious pericholecystic inflammatory changes. PANCREAS: Unremarkable. SPLEEN: Unremarkable. ADRENAL GLANDS: Unremarkable. KIDNEYS AND URETERS: The kidneys are normal in size, shape, and attenuation. Punctate nonobstructive calculus in the mid to lower pole of the right kidney. No additional urinary calculi. No hydronephrosis or perinephric abnormality. BLADDER: Unremarkable. GASTROINTESTINAL TRACT: The small and large bowel are unremarkable. The appendix is unremarkable. ABDOMINAL WALL: No significant hernia is appreciated. LYMPH NODES: Normal. VASCULAR: Aorta is atherosclerotic but normal caliber. PELVIC VISCERA: Uterus and ovaries unremarkable. OSSEOUS STRUCTURES: No acute or suspicious osseous abnormalities. CT/CT abdomen pelvis wo IV con IMPRESSION: * No acute findings within the abdomen or pelvis to explain the patient's symptomatology. * Punctate nonobstructive calculus, mid to lower pole right kidney. * Hepatic steatosis.
[2022-08-15 22:42] VITALS: BP 142/87; BP 180/113; BP 200/90; PULSE 80; PULSE 85; PULSE 96; RESP 16; RESP 17; TEMP 36.6; O2SAT 94; O2SAT 95; O2SAT 96; BMI 39.2
--- NOTE | 2022-08-15 22:48 | ED.GENADULT ---
HPI - General Adult General Chief complaint: General Medical Stated complaint: back pain Time Seen by Provider: 08/15/22 22:14 Source: patient Mode of arrival: ambulatory Limitations: no limitations History of Present Illness HPI narrative: Patient with history of kidney stone, hyperthyroidism, hypertension, diabetes comes have a sudden onset of left lower back pain to the left leg patient came back from work laid down and got up from sleep with pain no nausea no vomiting no weakness no bladder or bowel involvement patient denies any back pain before Related Data Home Medications Medication Instructions Recorded Confirmed atorvastatin 20 mg tablet 20 mg PO DAILY 03/21/21 05/19/22 dulaglutide 0.75 mg/0.5 mL 0.75 mg subcut QWEEK 03/21/21 05/19/22 subcutaneous pen injector (Trulicity) gabapentin 300 mg capsule 300 mg PO DAILY 03/21/21 05/19/22 hydrochlorothiazide 25 mg tablet 25 mg PO DAILY 03/21/21 05/19/22 insulin glargine 100 unit/mL (3 40 unit subcut QPM 03/21/21 05/19/22 mL) subcutaneous pen (Lantus Solostar U-100 Insulin) levothyroxine 125 mcg capsule 125 mcg PO DAILY 03/21/21 05/19/22 lisinopril 40 mg tablet 40 mg PO DAILY 03/21/21 05/19/22 metformin 1,000 mg tablet 1,000 mg PO DAILY 03/21/21 05/19/22 trazodone 50 mg tablet 50 mg PO NEEDED PRN Sleep 03/21/21 05/19/22 Previous Rx's Medication Instructions Recorded cyclobenzaprine 10 mg tablet 10 mg PO Q8H #20 tabs 08/16/22 oxycodone 5 mg tablet 5 mg PO Q6H PRN pain #20 tabs 08/16/22 Allergies Allergy/AdvReac Type Severity Reaction Status Date / Time No Known Allergies Allergy Verified 05/19/22 12:16 [No Known Allergies*] Review of Systems Review of Systems: Constitutional : No Weight loss, No Fever, No Chills ENT/Mouth : No sore throat, No Rhinorrhea Eyes: No Eye Pain, No Swelling Cardiovascular : No Chest Pain, no palpitations Respiratory : No Cough, No Sputum, no shortness of breath Gastrointestinal : no Nausea, No Vomiting, No Diarrhea, No abdominal Pain, no black stools Genitourinary : No Dysuria, No Urinary Frequency Musculoskeletal : No joint pain, No Myalgias, No Joint Swelling Skin : No Skin Lesions, No rash Neuro : No Weakness, No Numbness, No Dizziness, No Headache Psych : No Anxiety/Panic, No Depression Heme/Lymph: No Bruising, No Lymphadenopathy Endocrine : No Polyuria, No Polydipsia All other systems reviewed and are negative Yes all other systems are reviewed and are negative [facility] Past Medical History Medical History Cervical dysplasia Diabetes Hypertension Hyperthyroidism Kidney stone on left side Kidney stone on right side Kidney stones Surgical History H/O lithotripsy Hx of tubal ligation Family History Family History Father Diabetes Mother Diabetes HTN (hypertension) Social History Social History Alcohol intake: never Patient Tobacco Use Status: Former Tobacco user Quit Date: 2017 Tobacco use type: Cigarette Cigarettes Per Day: 20 Years Smoked: 30 Smoked in Last 30 Days: No Use of substances other than those prescribed or required for medical reasons: No Advance Directives: No Advance Directives Information Provided: No Patient : No Physical Exam ED Vital Signs: Vital Signs - 24 hr 08/15/22 22:42 08/15/22 22:42 08/16/22 00:11 Temperature 97.9 F 98.0 F Pulse Rate 96 80 71 Respiratory Rate 17 16 12 Blood Pressure 180/113 H 142/87 H 145/91 H Pulse Oximetry 95 94 98 Oxygen Delivery Method Room Air Room Air Nasal Cannula Oxygen Flow Rate 2 BMI result Body Mass Index 39.2 Appearance: Alert. Oriented X3. No acute distress. Eyes: PERRLA, No Nystagmus ENT: Pharynx normal. Oral Mucosa moist Neck: Normal inspection. Neck supple. CVS: Normal heart rate and rhythm. Pulses normal. Respiratory: No respiratory distress. Equal air entry bilateral, no wheezing/rales/rhonchi Abdomen: Soft and nontender. Bowel sounds are present, no mass palpable, no CVA tenderness Skin: Skin warm and dry. Normal skin color. Normal skin turgor. back: Diffuse tenderness lumbar area no focal swelling SLR positive at 60 degrees left side Extremities: No lower extremity edema. No calf tenderness Neuro: Oriented X 3. No motor deficit. No sensory deficit.No cerebellar signs , cranial nerves II-XII intact Medications Administered Discontinued Medications Generic Name Dose Route Start Last Admin Trade Name Damianq PRN Reason Stop Dose Admin Cyclobenzaprine HCl 10 mg 08/16/22 00:23 08/16/22 00:34 Cyclobenzaprine Hcl 10 Mg Tablet PO 08/16/22 00:24 10 mg ONCE ONE Administration Ketorolac Tromethamine 30 mg 08/16/22 00:23 08/16/22 00:35 Ketorolac Tromethamine 30 Mg/Ml Vial IVPUSH 08/16/22 00:24 30 mg ONCE ONE Administration Morphine Sulfate 4 mg 08/15/22 22:55 08/15/22 23:36 Morphine Sulfate 4 Mg/Ml Cartridge IVPUSH 08/15/22 22:56 4 mg ONCE ONE Administration Protocol Ondansetron HCl 4 mg 08/15/22 22:55 08/15/22 23:37 Ondansetron Hcl 4 Mg/2 Ml Vial IVPUSH 08/15/22 22:56 4 mg ONCE ONE Administration Medical Decision Making Medical Decision Making [facility] Narrative: PE acute onset of left sciatic pain atraumatic no signs of cauda equina CT scan of the abdomen was negative for any acute deep no compression fracture patient felt better after pain medication discharge patient on analgesics and muscle relaxer and advised to follow up with PCP Differential Diagnosis Kidney stone/compression fracture/sciatica/arthritis/spinal stenosis Lab Data [facility] Lab Attestation statement: I reviewed the patient's lab results. 08/15/22 23:06 08/15/22 23:06 Labs: Lab Results 08/15/22 08/15/22 Range/Units 23:06 23:06 WBC 9.7 (4.8-10.8) X10*3/uL RBC 4.05 L (4.20-5.50) X10*6/uL Hgb 12.4 (12.0-16.0) g/dl Hct 37.7 (37.0-47.0) % MCV 93.1 (80.0-98.0) fL MCH 30.6 (27.0-33.0) pg MCHC 32.9 (31.0-35.0) g/dl RDW 12.4 (11.0-16.0) % Plt Count 267 (160-400) X10*3/uL MPV 11.7 (9.4-12.3) fL Immature Gran % (Auto) 0.5 H (0.0-0.4) % Neut % (Auto) 54.9 (45-73) % Lymph % (Auto) 33.2 (20-40) % Throckmorton % (Auto) 6.5 (2-11) % Eos % (Auto) 4.0 (0-4) % Baso % (Auto) 0.9 (0-2) % Lymph # (Auto) 3.2 (1.2-4.9) X10*3/uL Throckmorton # (Auto) 0.6 (0.1-1.2) X10*3/uL Eos # (Auto) 0.4 (0.0-0.4) X10*3/uL Baso # (Auto) 0.1 (0.0-0.2) X10*3/uL Abs Immat Gran (auto) 0.05 H (0.00-0.03) X10*3/uL Absolute Neuts (auto) 5.3 (2.0-8.3) x10*3/uL Absolute Nucleated RBC 0.000 (0.0-0.012) X10*3/uL Nucleated RBC % (auto) 0.0 (0.0-0.2) /100WBC Sodium 146 H (135-145) mmol/L Potassium 3.9 (3.3-5.1) mmol/L Chloride 108 (96-108) mmol/L Carbon Dioxide 26 (22-29) mmol/L Anion Gap 16 (12-20) BUN 16 (9-16) mg/dL Creatinine 0.85 (0.5-1.4) mg/dL Estim Creat Clear Calc 92.9 Estimated GFR > 60 Random Glucose 167 H (60-115) mg/dL Calcium 8.9 (8.4-10.2) mg/dL Total Bilirubin 0.7 (0.0-1.0) mg/dL AST 25 (5-31) U/L ALT 30 (0-31) U/L Alkaline Phosphatase 88 (39-117) U/L Total Protein 6.3 L (6.5-8.0) g/dL Albumin 4.0 (3.5-5.0) g/dL Discharge Plan Discharge Clinical Impression: Left sciatic nerve pain Patient Disposition: Home, Self-Care Instructions: Sciatica (ED) Additional Instructions: Rest at home Your CT scan of the abdomen is negative for any acute pathology likely you have sciatica on the left side Take pain medication muscle relaxants as advised and follow-up with PCP Prescriptions: New cyclobenzaprine 10 mg tablet 10 mg PO Q8H Qty: 20 0RF oxycodone 5 mg tablet 5 mg PO Q6H PRN (Reason: pain) Qty: 20 0RF Rx Instructions: Partial Fill upon patient request. No Action metformin 1,000 mg tablet 1,000 mg PO DAILY gabapentin 300 mg capsule 300 mg PO DAILY atorvastatin 20 mg tablet 20 mg PO DAILY Lantus Solostar U-100 Insulin 100 unit/mL (3 mL) insulin pen 40 unit subcut QPM lisinopril 40 mg tablet 40 mg PO DAILY hydrochlorothiazide 25 mg tablet 25 mg PO DAILY levothyroxine 125 mcg capsule 125 mcg PO DAILY trazodone 50 mg tablet 50 mg PO NEEDED PRN (Reason: Sleep) Trulicity 0.75 mg/0.5 mL pen injector 0.75 mg subcut QWEEK
[2022-08-15 23:11] LABS: Basophils Absolute Auto 0.1 X10*3/uL (0.0-0.2); Basophils Percent Auto 0.9 % (0-2); Eosinophils Absolute Auto 0.4 X10*3/uL (0.0-0.4); Hematocrit 37.7 % (37.0-47.0); Hemoglobin 12.4 g/dl (12.0-16.0); Imm Gran Abs Auto 0.05 X10*3/uL (0.00-0.03); Imm Gran Pct Auto 0.5 % (0.0-0.4); Lymphocytes Absolute Auto 3.2 X10*3/uL (1.2-4.9); Lymphocytes Percent Auto 33.2 % (20-40); MANUAL DIFF FLAG NO; Mean Corpuscular HGB Conc 32.9 g/dl (31.0-35.0); Mean Corpuscular Hemoglobin 30.6 pg (27.0-33.0); Mean Corpuscular Volume 93.1 fL (80.0-98.0); Mean Platelet Volume 11.7 fL (9.4-12.3); Monocytes Absolute Auto 0.6 X10*3/uL (0.1-1.2); Monocytes Percent Auto 6.5 % (2-11); Neutrophils Absolute Auto 5.3 x10*3/uL (2.0-8.3); Neutrophils Percent Auto 54.9 % (45-73); Platelet Count 267 X10*3/uL (160-400); Red Blood Count 4.05 X10*6/uL (4.20-5.50); Red Cell Distribution Width 12.4 % (11.0-16.0); White Blood Count 9.7 X10*3/uL (4.8-10.8)
[2022-08-15 23:28] LABS: Alanine Aminotransferase 30 U/L (0-31); Alkaline Phosphatase 88 U/L (39-117); Anion Gap 16 (12-20); Aspartate Amino Transferase 25 U/L (5-31); Bilirubin Total 0.7 mg/dL (0.0-1.0); Blood Urea Nitrogen 16 mg/dL (9-16); Calcium 8.9 mg/dL (8.4-10.2); Carbon Dioxide 26 mmol/L (22-29); Chloride 108 mmol/L (96-108); Creatinine Clr Calc Pharmacy 92.9; Estimated Glomerular Filt Rate > 60; Glucose Random 167 mg/dL (60-115); Potassium 3.9 mmol/L (3.3-5.1); Sodium 146 mmol/L (135-145); Total Protein 6.3 g/dL (6.5-8.0)
[2022-08-15] MEDS: Morphine Sulfate 4 MG/ML CARTRIDGE IVPUSH (23:36)
[2022-08-15] MEDS: ondansetron HCL 4 MG/2 ML VIAL IVPUSH (23:37)
[2022-08-16 00:11] VITALS: BP 145/91; PULSE 71; RESP 12; TEMP 36.7; O2SAT 98
[2022-08-16] MEDS: Cyclobenzaprine HCl 10 MG TABLET PO (00:34)
[2022-08-16] MEDS: Ketorolac Tromethamine 30 MG/ML VIAL IVPUSH (00:35)
--- NOTE | 2022-08-16 00:41 | PC.NURSE ---
Pt aox4, medicated as ordered. IV line removed and tolerated well. Discharge instructions reviewed with pt. Pt verbalizes understanding. Pt able to ambulate independently with steady gait and no assistance upon discharge.
== END 2022-08-16 00:43 | disposition home or self-care (01) ==
PROVIDERS: Emergency Provider Internal Medicine; PCP Internal Medicine
DX: M54.42 Lumbago with sciatica, left side (principal); E11.9 Type 2 diabetes mellitus without complications; I10 Essential (primary) hypertension; Z87.891 Personal history of nicotine dependence; Z79.02 Long term (current) use of antithrombotics/antiplatelets; Z79.4 Long term (current) use of insulin; Z79.899 Other long term (current) drug therapy
CPT/HCPCS: 36415; 74176; 80053; 85025; 96374; 96375; 99284; J1885; J2270; J2405

== ENCOUNTER 2023-04-05 12:55 | Emergency (ER) | payer OTHER, SELFPAY ==
--- NOTE | ~2023-04-05 | CT_ITS ---
EXAMINATION: CT HEAD WITHOUT CONTRAST CLINICAL INFORMATION: Headache. Dizziness. COMPARISON: 06/18/2020 TECHNIQUE: Contiguous axial imaging was performed from the skull base to vertex without intravenous administration of contrast. This CT examination was performed using dose optimization techniques as appropriate, variously including the following: *Automated exposure control *Adjustment of mA and/or kV according to patient size (this includes techniques or standardized protocols for targeted exams where dose is matched to indication/reason for exam; i.e. extremities or head) *Use of iterative reconstruction technique DLP: 826 mGy-cm FINDINGS: There is no evidence of acute intracranial hemorrhage or territorial infarction. No mass effect or midline shift is seen. Carpenter to white matter differentiation is preserved. No extra-axial fluid collections are identified. No hydrocephalus. The calvarium is intact. Hypoplastic left mastoid air cells. Mild right maxillary sinus mucosal thickening. CT/CT head/brain wo IV con IMPRESSION: No acute intracranial pathology.
--- NOTE | 2023-04-05 12:59 | ED_ITS ---
HPI - General Adult General Stated complaint: high bp History of Present Illness HPI narrative: Patient complains of dizziness and headache that was mild for past 2 days but then got worse today as well as feeling lightheaded and like she might pass out She noted that her blood pressure was elevated over 200 Labs EKG and head CT are ordered No chest pain no shortness of breath This is rapid medical exam and triage pending full evaluation by ER provider for full history and physical, review of all results and disposition Related Data Home Medications Medication Instructions Recorded Confirmed atorvastatin 20 mg tablet 20 mg PO DAILY 03/21/21 05/19/22 dulaglutide 0.75 mg/0.5 mL 0.75 mg subcut QWEEK 03/21/21 05/19/22 subcutaneous pen injector (Trulicity) gabapentin 300 mg capsule 300 mg PO DAILY 03/21/21 05/19/22 hydrochlorothiazide 25 mg tablet 25 mg PO DAILY 03/21/21 05/19/22 insulin glargine 100 unit/mL (3 40 unit subcut QPM 03/21/21 05/19/22 mL) subcutaneous pen (Lantus Solostar U-100 Insulin) levothyroxine 125 mcg capsule 125 mcg PO DAILY 03/21/21 05/19/22 lisinopril 40 mg tablet 40 mg PO DAILY 03/21/21 05/19/22 metformin 1,000 mg tablet 1,000 mg PO DAILY 03/21/21 05/19/22 trazodone 50 mg tablet 50 mg PO NEEDED PRN Sleep 03/21/21 05/19/22 Previous Rx's Medication Instructions Recorded cyclobenzaprine 10 mg tablet 10 mg PO Q8H #20 tabs 08/16/22 oxycodone 5 mg tablet 5 mg PO Q6H PRN pain #20 tabs 08/16/22 Allergies Allergy/AdvReac Type Severity Reaction Status Date / Time No Known Allergies Allergy Verified 05/19/22 12:16 [No Known Allergies*] [facility] Past Medical History Medical History Cervical dysplasia Diabetes Hypertension Hyperthyroidism Kidney stone on left side Kidney stone on right side Kidney stones Surgical History H/O lithotripsy Hx of tubal ligation Family History Family History Father Diabetes Mother Diabetes HTN (hypertension) Social History Social History Alcohol intake: never Patient Tobacco Use Status: Former Tobacco user Quit Date: 2017 Tobacco use type: Cigarette Cigarettes Per Day: 20 Years Smoked: 30 Discharge Plan Discharge Prescriptions: No Action cyclobenzaprine 10 mg tablet 10 mg PO Q8H Qty: 20 0RF oxycodone 5 mg tablet 5 mg PO Q6H PRN (Reason: pain) Qty: 20 0RF Rx Instructions: Partial Fill upon patient request. metformin 1,000 mg tablet 1,000 mg PO DAILY gabapentin 300 mg capsule 300 mg PO DAILY atorvastatin 20 mg tablet 20 mg PO DAILY Lantus Solostar U-100 Insulin 100 unit/mL (3 mL) insulin pen 40 unit subcut QPM lisinopril 40 mg tablet 40 mg PO DAILY hydrochlorothiazide 25 mg tablet 25 mg PO DAILY levothyroxine 125 mcg capsule 125 mcg PO DAILY trazodone 50 mg tablet 50 mg PO NEEDED PRN (Reason: Sleep) Trulicity 0.75 mg/0.5 mL pen injector 0.75 mg subcut QWEEK
[2023-04-05 13:00] VITALS: BP 187/117; PULSE 92; RESP 22; TEMP 36.1; O2SAT 97; BMI 38.1
--- NOTE | 2023-04-05 13:02 | ECG_ITS ---
Test Reason : DIZZINESS Blood Pressure : / mmHG Vent. Rate : 088 BPM Atrial Rate : 088 BPM P-R Int : 146 ms QRS Dur : 074 ms QT Int : 390 ms P-R-T Axes : 050 036 045 degrees QTc Int : 471 ms Normal sinus rhythm with sinus arrhythmia Nonspecific T wave abnormality Inferior leads Abnormal ECG When compared with ECG of 18-JUN-2020 12:54, Premature ventricular complexes are no longer Present T wave amplitude has decreased in Inferior leads Referred By: Luis Humphrey Electronically Signed By:NISHA MATOS MD
[2023-04-05 13:20] LABS: MANUAL DIFF FLAG NO
[2023-04-05 13:22] LABS: Basophils Absolute Auto 0.1 X10*3/uL (0.0-0.2); Basophils Percent Auto 0.9 % (0-2); Eosinophils Absolute Auto 0.5 X10*3/uL (0.0-0.4); Eosinophils Percent Auto 4.9 % (0-4); Hematocrit 35.7 % (37.0-47.0); Hemoglobin 12.1 g/dl (12.0-16.0); Imm Gran Abs Auto 0.08 X10*3/uL (0.00-0.03); Imm Gran Pct Auto 0.7 % (0.0-0.4); Lymphocytes Percent Auto 27.9 % (20-40); Mean Corpuscular HGB Conc 33.9 g/dl (31.0-35.0); Mean Corpuscular Hemoglobin 30.8 pg (27.0-33.0); Mean Corpuscular Volume 90.8 fL (80.0-98.0); Mean Platelet Volume 11.6 fL (9.4-12.3); Monocytes Absolute Auto 0.7 X10*3/uL (0.1-1.2); Monocytes Percent Auto 6.7 % (2-11); Neutrophils Absolute Auto 6.3 x10*3/uL (2.0-8.3); Neutrophils Percent Auto 58.9 % (45-73); Platelet Count 244 X10*3/uL (160-400); Red Blood Count 3.93 X10*6/uL (4.20-5.50); Red Cell Distribution Width 12.5 % (11.0-16.0); White Blood Count 10.7 X10*3/uL (4.8-10.8)
[2023-04-05 13:35] LABS: Anion Gap 12 (12-20); Blood Urea Nitrogen 9 mg/dL (9-16); Calcium 9.1 mg/dL (8.4-10.2); Carbon Dioxide 26 mmol/L (22-29); Chloride 111 mmol/L (96-108); Creatinine Clr Calc Pharmacy 109.5; Estimated Glomerular Filt Rate > 60; Glucose Random 174 mg/dL (60-115); Potassium 3.6 mmol/L (3.3-5.1); Sodium 145 mmol/L (135-145)
[2023-04-05 13:42] LABS: Troponin-I High Sensitivity < 2.7 ng/L (<3.5-17.0)
--- NOTE | 2023-04-05 15:03 | ED.DIZZY ---
HPI - Dizziness General Chief Complaint: Dizziness Stated Complaint: high bp Time Seen by Provider: 04/05/23 14:51 Source: patient Mode of arrival: ambulatory Limitations: no limitations History of Present Illness HPI Narrative: 57-year-old female presents emergency department after blowing her nose feeling ears popping feeling dizzy and having headache. She denies ever having this problem the past she states she has no C she has been sick all day. She has associated body aches she has not taken anything for the headache or for the body aches. Denies any falls or injuries she has a head injuries she denies fevers chills nausea vomiting or diarrhea. She was seen in triage and had labs and CT ordered she did not complain of cold symptoms or body aches from. Related Data Home Medications Medication Instructions Recorded Confirmed atorvastatin 20 mg tablet 20 mg PO DAILY 03/21/21 05/19/22 dulaglutide 0.75 mg/0.5 mL 0.75 mg subcut QWEEK 03/21/21 05/19/22 subcutaneous pen injector (Trulicity) gabapentin 300 mg capsule 300 mg PO DAILY 03/21/21 05/19/22 hydrochlorothiazide 25 mg tablet 25 mg PO DAILY 03/21/21 05/19/22 insulin glargine 100 unit/mL (3 40 unit subcut QPM 03/21/21 05/19/22 mL) subcutaneous pen (Lantus Solostar U-100 Insulin) levothyroxine 125 mcg capsule 125 mcg PO DAILY 03/21/21 05/19/22 lisinopril 40 mg tablet 40 mg PO DAILY 03/21/21 05/19/22 metformin 1,000 mg tablet 1,000 mg PO DAILY 03/21/21 05/19/22 trazodone 50 mg tablet 50 mg PO NEEDED PRN Sleep 03/21/21 05/19/22 Previous Rx's Medication Instructions Recorded cyclobenzaprine 10 mg tablet 10 mg PO Q8H #20 tabs 08/16/22 oxycodone 5 mg tablet 5 mg PO Q6H PRN pain #20 tabs 08/16/22 meclizine 12.5 mg tablet 12.5 mg PO TID PRN dizziness #14 04/05/23 tabs Allergies Allergy/AdvReac Type Severity Reaction Status Date / Time No Known Allergies Allergy Verified 05/19/22 12:16 [No Known Allergies*] Review of Systems Review of Systems: Review of systems: General: Patient denies any fever chills recent illness or falls Musculoskeletal: Denies back pain or body aches or other injuries HEENT: Headache dizziness, runny nose, ear pain Respiratory: denies shortness of breath, cough Cardiovascular: no chest pain or palpitations : denies dysuria, frequency Abdomen: no nausea vomiting denies abdominal pain Extremities: no swelling, no pain Skin: no diaphoresis Yes all other systems are reviewed and are negative PMFSH Past Medical History Medical History Cervical dysplasia Diabetes Hypertension Hyperthyroidism Kidney stone on left side Kidney stone on right side Kidney stones Surgical History H/O lithotripsy Hx of tubal ligation Family History Family History Father Diabetes Mother Diabetes HTN (hypertension) Social History Social History Alcohol intake: never Patient Tobacco Use Status: Former Tobacco user Quit Date: 2017 Tobacco use type: Cigarette Cigarettes Per Day: 20 Years Smoked: 30 Advance Directives: No Advance Directives Information Provided: Yes Physical Exam Vital Signs: Vital Signs: Last Vital Signs Temp 97.9 F 04/05/23 16:00 Pulse 65 04/05/23 16:00 Resp 16 04/05/23 16:00 BP 139/67 04/05/23 16:00 Pulse Ox 96 04/05/23 16:00 O2 Del Method Room Air 04/05/23 16:00 BMI result Body Mass Index 38.1 Neurological exam: CN II- XII tested. Patient is alert and oriented to person place and time. Patient has no dysphagia or dysarthia, denies good vision in all four vision nieves no nystagmus on exam, good strength to upper and lower extremities with normal reflexes to brachioradialis, wrist, patella and achilles. Negative romberg, good finger to nose and heel to adams. General: Well-appearing well-nourished in no signs of distress HEENT: Normocephalic atraumatic Neck: No signs of JVD, no masses no tenderness or lymphadenopathy Cardiovascular: Regular rate and rhythm Respiratory: Clear to auscultation bilaterally Abdomen: Soft nontender no masses Extremities: Normal pedal pulses no signs of edema Skin: Dry warm no rashes Back: No tenderness full ROM Course Reevaluation(s) Reevaluation #1: 1724 stops are all negative she looks well she has been sleeping comfortably in the bed she did ambulate well here. Likely viral infection could be inner ear thing as in her some dizziness but she walked well here I think she is safe to be discharged home. Medications Administered Discontinued Medications Generic Name Dose Route Start Last Admin Trade Name Irina PRN Reason Stop Dose Admin Acetaminophen 650 mg 04/05/23 15:03 04/05/23 15:25 Acetaminophen 325 Mg Tablet PO 04/05/23 15:04 650 mg ONCE ONE Administration Diphenhydramine HCl 25 mg 04/05/23 15:03 04/05/23 15:32 Diphenhydramine Hcl 50 Mg/Ml Vial IVPUSH 04/05/23 15:04 25 mg ONCE ONE Administration Sodium Chloride 1,000 mls @ 999 mls/hr 04/05/23 15:15 04/05/23 17:23 Ns IV 04/05/23 16:15 Infused .Q1H1M ZURI Infusion Ketorolac Tromethamine 15 mg 04/05/23 15:03 04/05/23 15:32 Ketorolac Tromethamine 15 Mg/Ml Vial IVPUSH 04/05/23 15:04 15 mg ONCE ONE Administration Metoclopramide HCl 10 mg 04/05/23 15:03 04/05/23 15:32 Metoclopramide Hcl 10 Mg/2 Ml Vial IVPUSH 04/05/23 15:04 10 mg ONCE ONE Administration Medical Decision Making Medical Decision Making [facility] Narrative: Patient with cold symptoms for 1 day was at work and sneezed and blew her nose and then started to feel dizzy she feels like the room is spinning she feels like she might pass out. Patient was seen and had labs and CT done which are all unremarkable patient will continue to wait I will send off COVID and flu swabs I will give the patient Toradol Tylenol Reglan and Benadryl. I think Benadryl will help with her dizziness as well. Do think this is all here related as she states that her ears popped and the symptoms started she also has associated headache with a negative CT scan She has no history of migraines I do think this is something that is self-limited. Differential Diagnosis Differential Diagnoses: The differential diagnosis associated with the presentation includes Posterior circulation stroke BPV your infection old flu id upper respiratory infection electrolyte abnormality anemia Lab Data 04/05/23 13:16 11 13:16 Labs: Lab Results 04/05/23 04/05/23 Range/Units 13:16 15:49 WBC 10.7 (4.8-10.8) X10*3/uL RBC 3.93 L (4.20-5.50) X10*6/uL Hgb 12.1 (12.0-16.0) g/dl Hct 35.7 L (37.0-47.0) % MCV 90.8 (80.0-98.0) fL MCH 30.8 (27.0-33.0) pg MCHC 33.9 (31.0-35.0) g/dl RDW 12.5 (11.0-16.0) % Plt Count 244 (160-400) X10*3/uL MPV 11.6 (9.4-12.3) fL Immature Gran % (Auto) 0.7 H (0.0-0.4) % Neut % (Auto) 58.9 (45-73) % Lymph % (Auto) 27.9 (20-40) % [place] % (Auto) 6.7 (2-11) % Eos % (Auto) 4.9 H (0-4) % Baso % (Auto) 0.9 (0-2) % Lymph # (Auto) 3.0 (1.2-4.9) X10*3/uL [place] # (Auto) 0.7 (0.1-1.2) X10*3/uL Eos # (Auto) 0.5 H (0.0-0.4) X10*3/uL Baso # (Auto) 0.1 (0.0-0.2) X10*3/uL Abs Immat Gran (auto) 0.08 H (0.00-0.03) X10*3/uL Absolute Neuts (auto) 6.3 (2.0-8.3) x10*3/uL Absolute Nucleated RBC 0.000 (0.0-0.012) X10*3/uL Nucleated RBC % (auto) 0.0 (0.0-0.2) /100WBC Sodium 145 (135-145) mmol/L Potassium 3.6 (3.3-5.1) mmol/L Chloride 111 H (96-108) mmol/L Carbon Dioxide 26 (22-29) mmol/L Anion Gap 12 (12-20) BUN 9 (9-16) mg/dL Creatinine 0.71 (0.5-1.4) mg/dL Estim Creat Clear Calc 109.5 Estimated GFR > 60 Random Glucose 174 H (60-115) mg/dL Calcium 9.1 (8.4-10.2) mg/dL Troponin I High Sens < 2.7 (<3.5-17.0) ng/L COVID-19 (FELIPE) Negative (Negative) COVID-19 Clin Com See Note Influenza Type A (NANETTE) Negative (Negative) Influenza Type B (NANETTE) Negative (Negative) Influenza A & B Note See Note Discharge Plan Discharge Clinical Impression: Acute viral syndrome, Benign paroxysmal positional vertigo, Dizziness Patient Disposition: Home, Self-Care Additional Instructions: You were seen today in the emergency department for dizziness and body aches. This all happened after you feel your nose and felt a popping or this could be related to hear in her ear. We BC medications will get a CT scan labs were all unremarkable. If you have any other concerns a hesitate to come back to emergency department please call follow-up with Prescriptions: New meclizine 12.5 mg tablet 12.5 mg PO TID PRN (Reason: dizziness) Qty: 14 0RF No Action cyclobenzaprine 10 mg tablet 10 mg PO Q8H Qty: 20 0RF oxycodone 5 mg tablet 5 mg PO Q6H PRN (Reason: pain) Qty: 20 0RF Rx Instructions: Partial Fill upon patient request. metformin 1,000 mg tablet 1,000 mg PO DAILY gabapentin 300 mg capsule 300 mg PO DAILY atorvastatin 20 mg tablet 20 mg PO DAILY Lantus Solostar U-100 Insulin 100 unit/mL (3 mL) insulin pen 40 unit subcut QPM lisinopril 40 mg tablet 40 mg PO DAILY hydrochlorothiazide 25 mg tablet 25 mg PO DAILY levothyroxine 125 mcg capsule 125 mcg PO DAILY trazodone 50 mg tablet 50 mg PO NEEDED PRN (Reason: Sleep) Trulicity 0.75 mg/0.5 mL pen injector 0.75 mg subcut QWEEK
--- NOTE | 2023-04-05 15:18 | MHC.EDTECH ---
Brought patient two warm blankets.
--- OUTSIDE RECORDS SUMMARY | 2023-04-05 15:22 | XMS_ITS | Continuity of Care Document ---
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 Name Role Phone Grant SMITH MD, Andi Montelongo Primary Care Physician Encounter [facility] [place] Date(s): 10/05/21 - 10/05/[address] [address]- Encounter Diagnosis Musculoskeletal back pain(Final) - 10/05/21 Discharge Disposition: A-D/C Home Referring Physician: Not on Staff, Referring MD Allergies, Adverse Reactions, Alerts No Known Allergies Immunizations Given and Recorded Vaccine Date Status Refusal Reason influenza virus vaccine, inactivated 1 05/15/18 Gi ginny pneumococcal 23-valent vaccine 03/21/14 Given 1Early/Late Reason: Wan to Standard Admin Times Medications atorvastatin 20 mg oral tablet 1 tablet = 20 mg, By Mouth, Daily, # 30 tablet, 0 Refills, Maintenance, Tablet Start Date: 05/13/18 Status: Ordered Contour Next EZ Glucometer See Instructions, # 1 each, Maintenance, use as directed for Type 2 Diabetes Mellitus, 05/16/18 13:55:55 EST, Compound Start Date: 05/16/18 Status: Ordered Flomax 0.4 mg oral capsule 0.4 mg, 1, capsule, By Mouth, Daily, # 15 capsule, Refills 0, Tot. Refills 0, Maintenance, 10/05/2213:26:00 EDT, Route to Pharmacy Electronically, [facility], Partial fill upon patientrequest if the prescription is for a schedule II op... Start Date: 10/05/21 Status: Ordered Freestyle Lancets See Instructions, # 300 each, Refills 2, Tot. Refills 2, Maintenance, use as directed for Type 1 Diabetes Mellitus, 05/16/18 12:24:19 EST, Compound Start Date: 05/16/18 Stop Date: 02/10/19 Status: Ordered Freestyle Lite Test Strips See Instructions, # 200 each, Tot. Refills 5, Maintenance, use as directed for Type 1 Diabetes Mellitus, 05/16/18 13:56:24 EST, Compound Start Date: 05/16/18 Stop Date: 06/15/18 Status: Ordered hydrochlorothiazide 25 mg oral tablet 25 mg, 1, tablet, By Mouth, Daily, # 30 tablet, Refills 0, Maintenance, 05/13/18 17:57:18 EST Start Date: 05/13/18 Status: Ordered insulin glargine 100 u/ml subcutaneous solution = 50 units, Subcutaneous Injection, Daily at bedtime, # 15 mL, 0 Refills, Maintenance, 05/16/18 12:20:46 EST, Injection Start Date: 05/16/18 Status: Ordered insulin lispro 100 u/ml subcutaneous injection 8-20 units, Subcutaneous Injection, 3 times a day before meals, See Order Comments for Sliding Scale Comments., # 15 mL, 0 Refills, Maintenance, 05/16/18 12:21:06 EST, Injection Start Date: 05/16/18 Status: Ordered Insulin Syringe, BD Ultra-Fine 0.3 cc 30 G x 12.7 mm (1/2in) See Instructions, # 300 each, Refills 2, Tot. Refills 2, Maintenance, use as directed for Type 1 Diabetes Mellitus, 05/16/18 13:56:33 EST, Compound Start Date: 05/16/18 Stop Date: 02/10/19 Status: Ordered levothyroxine 175 mcg (0.175 mg) oral tablet 1 tablet = 175 mcg, By Mouth, Daily, # 30 tablet, 0 Refills, Maintenance, 05/13/18 17:57:22 EST, Tablet Start Date: 05/13/18 Status: Ordered lisinopril 40 mg oral tablet 1 tablet = 40 mg, By Mouth, Daily, # 30 tablet, 0 Refills, Maintenance, 05/13/18 17:57:20 EST, Tablet Start Date: 05/13/18 Status: Ordered metFORMIN 500 mg oral tablet 1 tablet = 500 mg, By Mouth, 2 times a day, # 60 tablet, 0 Refills, Maintenance, 05/14/18 2:29:20 EST, Tablet Start Date: 05/14/18 Status: Ordered Problem List Condition Effective Dates Status Health Status Inform ant Graves' disease(Confirmed) Active Graves' ophthalmopathy(Confirmed) Active Urinary incontinence(Confirmed) Active Vital Signs Most recent to oldest [Reference Range]: 1 2 3 Oxygen Saturation [94-100 %] 97 % (10/05/21 1:55 PM) 99 % (10/05/21 12:03 PM) 97 % (10/05/21 9:22 AM) Pulse Rate [55-90 bpm] 105 bpm *H* (10/05/21 1:55 PM) 86 bpm (10/05/21 12:03 PM) 89 bpm (10/05/21 9:22 AM) Blood Pressure [90-138/55-84 mm Hg] 108/76mm Hg (10/05/21 1:55 PM) 109/94mm Hg (10/05/21 12:03 PM) 133/74mm Hg (10/05/21 9:22 AM) Respiratory Rate [16-30 br/min] 18 br/min (10/05/21 1:55 PM) 18 br/min (10/05/21 9:22 AM) Temperature [96.8-100.4 DegF] 98 DegF (10/05/21 1:55 PM) 98.0 DegF (10/05/21 12:03 PM) 97.7 DegF (10/05/21 9:22 AM) Mode of Delivery (Oxygen) Room air (10/05/21 1:55 PM) Room air (10/05/21 12:03 PM) Room air (10/05/21 9:22 AM) Blood pressure sites Arm, right (10/05/21 1:55 PM) Arm, right (10/05/21 12:03 PM) Arm, right (10/05/21 9:22 AM) Temperature Route Oral (10/05/21 1:55 PM) Oral (10/05/21 12:03 PM) Oral (10/05/21 9:22 AM) Social History Social History Type Response Smoking Status Current every day catherine carvajal; Started at age: 13; Stopped at age: 1; entered on: 03/23/14 Sex
[2023-04-05] MEDS: Acetaminophen 325 MG TABLET 650 MG PO (15:25)
[2023-04-05] MEDS: Metoclopramide HCl 10 MG/2 ML VIAL IVPUSH (15:32)
[2023-04-05] MEDS: 0.9 % Sodium Chloride 1,000 ML 999 ML IV (15:32)
[2023-04-05] MEDS: Ketorolac Tromethamine 15 MG/ML VIAL IVPUSH (15:32)
[2023-04-05] MEDS: diphenhydrAMINE HCL 50 MG/ML VIAL 25 MG IVPUSH (15:32)
[2023-04-05 16:00] VITALS: BP 139/67; PULSE 65; RESP 16; TEMP 36.6; O2SAT 96
[2023-04-05 16:25] LABS: COVID-19 Test Negative (Negative); IDNOW Serial# 08D9AD1C; IDNOW Serial# BCCEAD1C; Influenza A Negative (Negative); Influenza B2 Negative (Negative)
== END 2023-04-05 17:46 | disposition home or self-care (01) ==
PROVIDERS: Physician Assistant Medical; Emergency Provider Student in an Organized Health Care Education/Training Program; PCP Internal Medicine
DX: R42 Dizziness and giddiness (principal); R51.9 Headache, unspecified; R94.31 Abnormal electrocardiogram [ECG] [EKG]; Z11.52 Encounter for screening for COVID-19; Z20.822 Contact with and (suspected) exposure to COVID-19; Z87.891 Personal history of nicotine dependence; Z79.899 Other long term (current) drug therapy
CPT/HCPCS: 36415; 70450; 80048; 84484; 85025; 87502; 87635; 93005; 99284; J1200; J1885; J2765

== ENCOUNTER 2023-11-25 10:15 | Emergency (ER) | payer OTHER, SELFPAY ==
[2023-11-25 10:30] VITALS: BP 141/99; PULSE 100; RESP 18; TEMP 36.8; O2SAT 96; BMI 36.0
[2023-11-25 10:51] LABS: MANUAL DIFF FLAG NO
[2023-11-25 10:54] LABS: Basophils Absolute Auto 0.1 X10*3/uL (0.0-0.2); Eosinophils Absolute Auto 0.6 X10*3/uL (0.0-0.4); Eosinophils Percent Auto 6.6 % (0-4); Hematocrit 37.5 % (37.0-47.0); Imm Gran Abs Auto 0.06 X10*3/uL (0.00-0.03); Imm Gran Pct Auto 0.6 % (0.0-0.4); Lymphocytes Absolute Auto 3.2 X10*3/uL (1.2-4.9); Lymphocytes Percent Auto 33.1 % (20-40); Mean Corpuscular HGB Conc 34.7 g/dl (31.0-35.0); Mean Corpuscular Volume 89.5 fL (80.0-98.0); Mean Platelet Volume 11.7 fL (9.4-12.3); Monocytes Absolute Auto 0.7 X10*3/uL (0.1-1.2); Monocytes Percent Auto 6.7 % (2-11); Neutrophils Absolute Auto 5.1 x10*3/uL (2.0-8.3); Platelet Count 253 X10*3/uL (160-400); Red Blood Count 4.19 X10*6/uL (4.20-5.50); Red Cell Distribution Width 12.4 % (11.0-16.0); White Blood Count 9.8 X10*3/uL (4.8-10.8)
--- NOTE | 2023-11-25 11:00 | PC.NURSE ---
a&ox4. vss and up to date. pt presents to the ED w/ sudden onset right sided flank pain that radiates to right leg. pt describes pain as a shooting sensation w/ tingling in RLE. pt also verbalizing urinary frequency. denies other urinary sx. pt aware UA is needed. denies any n/v/d. no sob/wob noted. resp even/unlabored. plan of care ongoing. call jackson placed within reach.
[2023-11-25 11:10] LABS: Alanine Aminotransferase 18 U/L (0-31); Albumin Level 4.3 g/dL (3.5-5.0); Alkaline Phosphatase 108 U/L (39-117); Anion Gap 15 (12-20); Aspartate Amino Transferase 15 U/L (5-31); Bilirubin Total 0.3 mg/dL (0.0-1.0); Blood Urea Nitrogen 25 mg/dL (9-16); Calcium 10.2 mg/dL (8.4-10.2); Carbon Dioxide 24 mmol/L (22-29); Chloride 107 mmol/L (96-108); Estimated Glomerular Filt Rate 51; Glucose Random 313 mg/dL (60-115); Potassium 4.3 mmol/L (3.3-5.1); Sodium 142 mmol/L (135-145); Total Protein 7.2 g/dL (6.5-8.0)
[2023-11-25 12:00] VITALS: BP 139/97; PULSE 91; RESP 14; TEMP 36.7; O2SAT 96
--- NOTE | 2023-11-25 12:27 | ED.GENADULT ---
HPI - General Adult General Chief complaint: General Medical Stated complaint: Lower back pain R side Time Seen by Provider: 11/25/23 11:37 Source: patient, RN notes reviewed and old records reviewed Mode of arrival: ambulatory History of Present Illness ED Provider: Shama Wallace PA-C HPI narrative: 58-year-old female with a past medical history of hyperthyroidism, HTN, diabetes, renal stones, small aneurysm per patient, presenting to the ED complaining of right-sided low back pain radiating down RLE since yesterday. Also reports intermittent headache x1 week, fluctuating in intensity, not maximal at onset. Reports chronic blurry vision, unchanged. Denies recent back injury/trauma or fall/heavy lifting, urinary incontinence/retention, numbness, tingling, weakness, nausea, vomiting. Has not taken ibuprofen at home with some relief Related Data Home Medications ?Medication ?Instructions ?Recorded ?Confirmed atorvastatin 20 mg tablet 20 mg PO DAILY 03/21/21 05/19/22 dulaglutide 0.75 mg/0.5 mL 0.75 mg subcut QWEEK 03/21/21 05/19/22 subcutaneous pen injector (Trulicity) gabapentin 300 mg capsule 300 mg PO DAILY 03/21/21 05/19/22 hydrochlorothiazide 25 mg tablet 25 mg PO DAILY 03/21/21 05/19/22 insulin glargine 100 unit/mL (3 40 unit subcut QPM 03/21/21 05/19/22 mL) subcutaneous pen (Lantus Solostar U-100 Insulin) levothyroxine 125 mcg capsule 125 mcg PO DAILY 03/21/21 05/19/22 lisinopril 40 mg tablet 40 mg PO DAILY 03/21/21 05/19/22 metformin 1,000 mg tablet 1,000 mg PO DAILY 03/21/21 05/19/22 trazodone 50 mg tablet 50 mg PO NEEDED PRN Sleep 03/21/21 05/19/22 Previous Rx's ?Medication ?Instructions ?Recorded cyclobenzaprine 10 mg tablet 10 mg PO Q8H #20 tabs 08/16/22 oxycodone 5 mg tablet 5 mg PO Q6H PRN pain #20 tabs 08/16/22 meclizine 12.5 mg tablet 12.5 mg PO TID PRN dizziness #14 04/05/23 tabs Allergies Allergy/AdvReac Type Severity Reaction Status Date / Time No Known Allergies Allergy Verified 11/25/23 10:33 [No Known Allergies*] Review of Systems Review of Systems: Constitutional: No Fever, No Chills ENT/Mouth: No Ear Pain, No Nasal Congestion, No sore throat, No Rhinorrhea, No Swallowing Difficulty Cardiovascular: No Chest Pain, No SOB Respiratory: No Cough, No Sputum, No Wheezing Gastrointestinal: No Nausea, No Vomiting, No Diarrhea, No Constipation, No Abdominal pain Genitourinary: No Dysuria, No Urinary Frequency, No Hematuria, No Urinary Incontinence/retention, No Flank Pain Musculoskeletal: + joint pain, No Myalgias, No Joint Swelling Skin: No Skin Lesions, No rash Neuro: No Weakness, No Numbness, No Paresthesias, +LOPEZ Yes all other systems are reviewed and are negative Constitutional: Constitutional: Reports as per HPI Neurologic: Denies Abnormal speech present and Denies Sensory deficit (Neuro) [facility] Past Medical History Attestation statement: The following information was validated with the patient. Source: old records reviewed Medical History Kidney stone on right side Kidney stone on left side Cervical dysplasia Kidney stones Hyperthyroidism Hypertension Diabetes Surgical History H/O lithotripsy Hx of tubal ligation Family History Family History Father Diabetes Mother Diabetes HTN (hypertension) Social History Social History Alcohol intake: never Patient Tobacco Use Status: Former Tobacco user Tobacco use type: Cigarette Cigarettes Per Day: 20 Years Smoked: 30 Advance Directives: No Advance Directives Information Provided: Yes Do you have a plan to hurt others: No Plan Physical Exam ED Vital Signs: Vital Signs - 24 hr 11/25/23 10:30 11/25/23 12:00 Temperature 98.3 F 98.1 F Pulse Rate 100 91 Respiratory Rate 18 14 Blood Pressure 141/99 H 139/97 H Pulse Oximetry 96 96 Oxygen Delivery Method Room Air Room Air BMI result Body Mass Index 36.0 Const General: cooperative, healthy appearing and no acute distress Orientation/consciousness: patient oriented x3 Limitations: no limitations HENMT Head: Yes normal to inspection and Yes atraumatic Ears: hearing grossly normal bilaterally General nose exam: Normal external nose present Face and sinus: Yes normal facial exam Mouth: Normal oral and palatal mucosa present Throat: Yes posterior oropharynx normal, Yes tonsils normal and Yes uvula midline Eyes General: appearance normal, both eyes and all related structures Pupils: Equal, round and reactive pupils present EOM: EOMs intact bilaterally Neck Neck: Yes normal visual inspection and Yes no meningeal signs Resp Effort & Inspection: normal respiratory effort and no respiratory distress Auscultation: clear to auscultation bilaterally Cardio Rate: regular rate Heart sounds: S1 normal heart sound present and S2 normal heart sound present GI Inspection: Yes normal to inspection Palpation (GI): Soft to palpation, nontender, no guarding and not rigid General: Yes no CVA tenderness Back/Spine/Pelvis Other: No midline cervical/thoracic/lumbar spinous tenderness/step-off or deformity. + right-sided lower lumbar paraspinal/MSK reproducible tenderness to palpation. No erythema/rash Back: no CVA tenderness Skin Rashes: no rashes Wounds: no wounds Neuro Other: Strength intact throughout. No saddle anesthesia. Sensation intact to light touch. Neurovascular intact distally General: patient oriented x3, gait normal, tone normal, moves all extremities, no meningeal signs, no focal motor deficits and CN's II-XI intact bilaterally Cranial nerves: Yes CN's II-XII intact bilaterally and Yes Equal, round and reactive pupils present Cognition (Neuro): normal cognition Speech: No Abnormal speech present Gait exam (Neuro): Normal gait present Motor exam (neuro): 5/5 motor strength present throughout Sensory Exam: No Sensory deficit (Neuro) Extrem General: Yes normal to inspection Course Course Course Narrative: -1251--labs reassuring -1353--on re-evaluation patient sleeping comfortably, awoken reports symptomatic improvement, feels safe for discharge home at this time Results discussed with patient including worrisome signs and symptoms and strict return precautions, and when to return to the emergency department. They verbalized understanding and feel safe for discharge at this time. Medications Administered Discontinued Medications Generic Name Dose Route Start Last Admin Trade Name Freq PRN Reason Stop Dose Admin Diphenhydramine HCl 25 mg 11/25/23 12:02 11/25/23 12:38 Diphenhydramine Hcl 50 Mg/Ml Vial IVPUSH 11/25/23 12:03 25 mg ONCE ONE Administration Ketorolac Tromethamine 15 mg 11/25/23 12:02 11/25/23 12:37 Ketorolac Tromethamine 15 Mg/Ml Vial IVPUSH 11/25/23 12:03 15 mg ONCE ONE Administration Lidocaine 1 patch 11/25/23 12:02 11/25/23 12:38 Lidocaine 4 % Patch Adh..Patch TRANSDERMA 11/25/23 12:03 1 patch ONCE ONE Administration Protocol Metoclopramide HCl 10 mg 11/25/23 12:02 11/25/23 12:37 Metoclopramide Hcl 10 Mg/2 Ml Vial IVPUSH 11/25/23 12:03 10 mg ONCE ONE Administration Medical Decision Making Medical Decision Making [facility] Narrative: 58-year-old female with a past medical history of hyperthyroidism, HTN, diabetes, renal stones, small aneurysm per patient, presenting to the ED complaining of right-sided low back pain radiating down RLE since yesterday. Also reports intermittent headache x1 week, fluctuating in intensity, not maximal at onset. On exam vital signs stable, NAD, nontoxic appearing, no focal neuro deficits, no midline spinous tenderness or red flag symptoms. Ambulating with steady gait. Concern for MSK back pain/strain vs sciatica vs herniated disc. Lower suspicion for UTI/pyelo, cauda equina or cord compression. Concern for migraine headache. Lower suspicion for meningitis/encephalitis, CVA/TIA or ICH Plan: Labs, symptomatic treatment, re-evaluate Please refer to course for remaining clinical decision making, interpretation of labs/imaging results, and discussions with consultants and/or family members. Differential Diagnosis Differential Diagnoses: The differential diagnosis associated with the presentation includes As above Admission/Observation Consideration of admission/observation: Escalation of care including admission/observation considered Lab Data [facility] Lab Attestation statement: I reviewed the patient's lab results. 11/25/23 10:47 11/25/23 10:47 Labs: Lab Results 11/25/23 11/25/23 Range/Units 10:47 12:34 WBC 9.8 (4.8-10.8) X10*3/uL RBC 4.19 L (4.20-5.50) X10*6/uL Hgb 13.0 (12.0-16.0) g/dl Hct 37.5 (37.0-47.0) % MCV 89.5 (80.0-98.0) fL MCH 31.0 (27.0-33.0) pg MCHC 34.7 (31.0-35.0) g/dl RDW 12.4 (11.0-16.0) % Plt Count 253 (160-400) X10*3/uL MPV 11.7 (9.4-12.3) fL Immature Gran % (Auto) 0.6 H (0.0-0.4) % Neut % (Auto) 52.0 (45-73) % Lymph % (Auto) 33.1 (20-40) % [place] % (Auto) 6.7 (2-11) % Eos % (Auto) 6.6 H (0-4) % Baso % (Auto) 1.0 (0-2) % Lymph # (Auto) 3.2 (1.2-4.9) X10*3/uL [place] # (Auto) 0.7 (0.1-1.2) X10*3/uL Eos # (Auto) 0.6 H (0.0-0.4) X10*3/uL Baso # (Auto) 0.1 (0.0-0.2) X10*3/uL Abs Immat Gran (auto) 0.06 H (0.00-0.03) X10*3/uL Absolute Neuts (auto) 5.1 (2.0-8.3) x10*3/uL Absolute Nucleated RBC 0.000 (0.0-0.012) X10*3/uL Nucleated RBC % (auto) 0.0 (0.0-0.2) /100WBC Sodium 142 (135-145) mmol/L Potassium 4.3 (3.3-5.1) mmol/L Chloride 107 (96-108) mmol/L Carbon Dioxide 24 (22-29) mmol/L Anion Gap 15 (12-20) BUN 25 H (9-16) mg/dL Creatinine 1.10 (0.5-1.4) mg/dL Estim Creat Clear Calc 70.0 Estimated GFR 51 Random Glucose 313 H (60-115) mg/dL Calcium 10.2 D (8.4-10.2) mg/dL Total Bilirubin 0.3 (0.0-1.0) mg/dL AST 15 (5-31) U/L ALT 18 (0-31) U/L Alkaline Phosphatase 108 (39-117) U/L Total Protein 7.2 (6.5-8.0) g/dL Albumin 4.3 (3.5-5.0) g/dL Urine Color Yellow Urine Appearance Clear Urine pH 5.5 (5.0-9.0) Ur Specific [place] >= 1.030 H (1.005-1.025) Urine Protein 30 (1+) H (Neg-Trace) mg/dL Urine Glucose (UA) >=1000 H (Negative) mg/dL Urine Ketones Trace (Negative) mg/dL Urine Blood Negative (Negative) Urine Nitrite Negative (Negative) Ur Leukocyte Esterase Negative (Negative) Urine RBC 0-2 (0-2) /HPF Urine WBC 0-5 (0-5) /HPF Ur Squamous Epith Cells 3-5 (0-2) /HPF Urine Bacteria None Seen (None Seen) Hyaline Casts 0-2 (0-2) /LPF Radiology Impression Discussion of test interpretation with radiology: I have reviewed the radiologist's reading. External Record Review External record reviewed: Inpatient record, Office record, Outpatient record, Prior outpatient labs, Prior outpatient radiology, Primary care record and Outside ED record Tests considered The following testing was considered but not selected: As above Prescription Management I considered prescription management with: Pain Medication Chronic Conditions Patient?s care impacted by: Diabetes and Hypertension Discharge Plan Discharge Clinical Impression: Sciatica, Headache Patient Disposition: Home, Self-Care Prescriptions: No Action cyclobenzaprine 10 mg tablet 10 mg PO Q8H Qty: 20 0RF oxycodone 5 mg tablet 5 mg PO Q6H PRN (Reason: pain) Qty: 20 0RF Rx Instructions: Partial Fill upon patient request. meclizine 12.5 mg tablet 12.5 mg PO TID PRN (Reason: dizziness) Qty: 14 0RF metformin 1,000 mg tablet 1,000 mg PO DAILY gabapentin 300 mg capsule 300 mg PO DAILY atorvastatin 20 mg tablet 20 mg PO DAILY Lantus Solostar U-100 Insulin 100 unit/mL (3 mL) insulin pen 40 unit subcut QPM lisinopril 40 mg tablet 40 mg PO DAILY hydrochlorothiazide 25 mg tablet 25 mg PO DAILY levothyroxine 125 mcg capsule 125 mcg PO DAILY trazodone 50 mg tablet 50 mg PO NEEDED PRN (Reason: Sleep) Trulicity 0.75 mg/0.5 mL pen injector 0.75 mg subcut QWEEK Print Language: Jamaican
[2023-11-25] MEDS: Metoclopramide HCl 10 MG/2 ML VIAL IVPUSH (12:37)
[2023-11-25] MEDS: Ketorolac Tromethamine 15 MG/ML VIAL IVPUSH (12:37)
[2023-11-25] MEDS: diphenhydrAMINE HCL 50 MG/ML VIAL 25 MG IVPUSH (12:38)
[2023-11-25] MEDS: Lidocaine 4 % Patch ADH..PATCH 1 PATCH TRANSDERMA (12:38)
[2023-11-25 12:43] LABS: Appearance Urine Clear; Color Urine Yellow; Glucose Urine UA >=1000 mg/dL (Negative); Leukocyte Esterase Urine Negative (Negative); Nitrite Urine Negative (Negative); PH 5.5 (5.0-9.0); Specific Gravity - Urine >= 1.030 (1.005-1.025); UMIC TRIGGER UACC YES; Urine Blood Negative (Negative); Urine Ketones Trace mg/dL (Negative); Urine Protein 30 (1+) mg/dL (Neg-Trace)
[2023-11-25 12:45] LABS: Bacteria Urine None Seen (None Seen); Hyaline Casts Urine 0-2 /LPF (0-2); RBC Urine 0-2 /HPF (0-2); WBC Urine 0-5 /HPF (0-5)
--- NOTE | 2023-11-25 12:55 | PC.NURSE ---
medication administered per provider order. effectiveness pending.
[2023-11-25 14:43] VITALS: BP 125/79; PULSE 94; RESP 16; TEMP 36.7; O2SAT 100
[2023-11-25 14:44] VITALS: BP 125/79; PULSE 94; RESP 16; TEMP 36.7; O2SAT 100
== END 2023-11-25 14:46 | disposition home or self-care (01) ==
PROVIDERS: Emergency Provider Emergency Medicine; PCP Internal Medicine
DX: M54.30 Sciatica, unspecified side (principal); R51.9 Headache, unspecified; M54.50 Low back pain, unspecified; I10 Essential (primary) hypertension; E11.9 Type 2 diabetes mellitus without complications; E05.90 Thyrotoxicosis, unspecified without thyrotoxic crisis or storm; Z79.899 Other long term (current) drug therapy
CPT/HCPCS: 36415; 80053; 81001; 85025; 96374; 96375; 99283; 99284; J1200; J1885; J2765

== ENCOUNTER 2025-02-10 13:16 | Outpatient (AMB) | payer OTHER, SELFPAY ==
--- NOTE | 2025-02-10 13:18 | MHC.PC.OV ---
Vital Signs 02/10/25 13:21 Height 5 ft 7 in Weight 224 lb 8 oz BMI 35.2 BP 132/72 Blood Pressure Location Lt brachial Position Sitting Pulse 101 H Pulse Source Pulse Oximeter Pulse Oximetry (%) 97 Oxygen Delivery Method Room Air Intake Visit Reasons: establish care Bath Mixer Required: No Accompanied by: Self / Same As Patient Allergies No Known Allergies (No Known Allergies*) Allergy (Verified 02/10/25 13:40) Medication List - Last Reconciled 02/10/25 by Lydia Kuhn PA-C atorvastatin 20 mg PO DAILY atropine 1% drps ophthalmic (eye) blood sugar diagnostic (Contour Next Test Strips) As directed blood-glucose meter (Fanplayruch Verio Flex Meter) As directed dulaglutide (Trulicity) 0.75 mg subcut QWEEK gabapentin 300 mg PO DAILY hydrochlorothiazide 25 mg PO DAILY hydroxyzine HCl 25 mg PO DAILY ibuprofen 800 mg PO TID insulin glargine (Lantus Solostar U-100 Insulin) 40 units subcut QPM insulin lispro 2 - 10 units subcut TID lancets (Pulse.ioTouch Delica Plus Lancet) As directed lancets (Microlet Lancet) As directed levothyroxine 125 mcg PO DAILY levothyroxine 137 mcg PO DAILY losartan 100 mg PO DAILY metformin 1,000 mg PO DAILY pen needle, diabetic (TechLITE Pen Needle) As directed trazodone 50 mg PO NEEDED PRN Tobacco use date assessed: 02/10/25 Dental Screening Dental Screen Date: 02/10/25 Did you have a dental visit in the last 12 months?: No Did you have a dental problem in the last 6 months where you did not have access to dental care?: No Was dental information given to patient?: Patient has dentist HPI establish care HPI Details 59-year-old female coming to the office with the 1st time. Presenting with diabetes mellitus management. The patient's A1c is currently 8.5, which is higher than desired but not excessively high. She has been off her regular medications, including metformin and Trulicity, for four to five months and has been using insulin inconsistently, which may have contributed to the elevated A1c. She has also been using Metformin inconsistenly obtained from friends and family. The patient experiences tingling and pain in her legs, which is suspected to be diabetic neuropathy. Gabapentin has been prescribed to manage these symptoms but has been out of her prescription for quite some time. The patient reports experiencing vertigo occasionally, with the last episode occurring about a year ago. Physical therapy has been suggested as a treatment option if symptoms persist. The patient's blood pressure is currently well-controlled, although her heart rate was noted to be slightly elevated during the visit. She has been taking her Losartan for the last several months. The patient experiences intermittent back pain, for which she takes ibuprofen 800 mg as needed. mammogram: ordered today pap smear: following with ob/gyn nurse colonscopy: unsure when she is due [facility] Medical History Kidney stone on right side Kidney stone on left side Cervical dysplasia Hypertension Diabetes Surgical History History of carpal tunnel release of both wrists H/O lithotripsy Hx of tubal ligation Family History Father Diabetes Mother Diabetes HTN (hypertension) Cirrhosis Social History Housing: Apartment Alcohol intake: never Patient Tobacco Use Status: Former Tobacco user Tobacco use type: Cigarette Cigarettes Per Day: 20 Years Smoked: 30 service: No Current occupational status: employed Hearing needs: No Vision needs: No Female Reproductive History Menstrual Age of Menarche: 14 Questionnaire PHQ-9 Over the last 2 weeks, how often have you been bothered by any of the following problems? 1. Little interest or pleasure in doing things: not at all 2. Feeling down, depressed, or hopeless: not at all 3. Trouble falling or staying asleep, or sleeping too much: more than half the days 4. Feeling tired or having little energy: not at all 5. Poor appetite or overeating: more than half the days 6. Feeling bad about yourself - or that you are a failure or have let yourself or your family down: not at all 7. Trouble concentrating on things, such as reading the newspaper or watching television: not at all 8. Moving or speaking so slowly that other people could have noticed. Or the opposite - being so fidgety or restless that you have been moving around a lot more than usual: not at all 9. Thoughts that you would be better off or of hurting yourself in some way: not at all Total score: 4 Depression Screening Interpretation: Negative Depression Screening Done: Yes 59192 - PHQ-9 Billing: Yes Source: Developed by Drs. Yohannes Rivera, Jocelyn Garcia, Baljinder Markham and colleagues, with an educational rekha from [employer]. Thrive Questionnaire Date Thrive assessed: 02/10/25 I am a: Patient What is your living situation today?: I have a steady place to live Within the past 12 months, did the food you bought not last and you didn't have the money to get more?: Never true Within the past 12 months, did you worry whether your food would run out before you got money to buy more?: Never true Do you have trouble paying for medicines?: Yes Do you have trouble getting transportation to medical appointments?: No Do you have trouble paying your heating and electricity bill?: No Do you have trouble taking care of your child, family member or friend?: No Do you have trouble with day-to-day activities such as bathing, preparing meals, shopping, managing finances, etc.?: No Are you currently unemployed and looking for a job?: No Are you interested in more education?: No Please select the resources that you would like help with: None THRIVE Score: 0 AUDIT C Alcohol Use Questionnaire (AUDIT-C) 1. How often do you have a drink containing alcohol?: Never Total Score: 0 ISMAEL-7 AMB Questionnaire ISMAEL-7 Date ISMAEL - 7 assessed: 02/10/25 Feeling nervous, anxious, or on edge: 1 = Several days Not being able to stop or control worryin = Not at all Worrying too much about different things: 2 = More than half the days Trouble relaxin = Not at all Being so restless that it is hard to sit still: 0 = Not at all Becoming easily annoyed or irritable: 0 = Not at all Feeling afraid as if something awful might happen: 2 = More than half the days Total ISMAEL-7 score (0-4 normal; 5-9 mild; 10-14 moderate; 15-21 severe): 5 Source: Developed by Drs. Yohannes Rivera, Jocelyn Garcia, Baljinder Markham and colleagues, with an educational rekha from [employer]. ISMAEL-7 Assessment Billing ISMAEL-7 Assessment Tool: ISMAEL-7 Assessment 68522 Review of Systems Const Denies body aches, Denies chills, Denies fever(s), Denies headache(s) and Denies poor appetite Eyes Reports no additional complaints ENT Denies dysphagia, Denies dizziness, Denies headache(s) and Denies odynophagia Card Denies chest pain, Denies syncope, Denies edema, Denies irregular heart rhythm, Denies lightheadedness and Denies dyspnea Resp Denies cough and Denies dyspnea GI Denies abdominal pain, Denies constipation, Denies dysphagia, Denies diarrhea, Denies nausea, Denies odynophagia and Denies vomiting Reports no additional complaints Musc Reports no additional complaints and Denies abnormal gait Skin/Breast Reports system reviewed and no additional complaints, except as documented Neuro Denies abnormal gait, Denies dizziness, Denies syncope and Denies headache(s) Psych Reports no additional complaints Physical exam (Primary Care) Vital Signs: Last Vital Signs Pulse 101 H 02/10/25 13:21 BP 132/72 02/10/25 13:21 Pulse Ox 97 02/10/25 13:21 Oxygen Delivery Method Room Air 02/10/25 13:21 BMI result Body Mass Index 35.2 Tobacco/Smoking Status: Tobacco use Status Tobacco use date assessed 02/10/25 02/10/25 13:35 Patient Tobacco Use Status Former Tobacco user 02/10/25 13:18 Tobacco use type Cigarette 02/10/25 13:18 PHQ-9: PHQ-9 Score PHQ-9: Total score 4 02/11/25 07:51 Depression Screening Interpretation: Negative Thrive Assessment: Date of Thrive Assessment Date Thrive assessed 02/10/25 02/10/25 13:35 Const General: cooperative, healthy appearing, comfortable and no acute distress Orientation/consciousness: patient oriented x3 HENMT Head: Yes normocephalic Ears: hearing grossly normal bilaterally General nose exam: Normal external nose present Eyes General: appearance normal, both eyes and all related structures Conjunctivae: conjunctivae normal Neck Neck: Yes full ROM and Yes no lymphadenopathy Resp Effort & Inspection: normal respiratory effort Auscultation: clear to auscultation bilaterally, no crackles, no rales, no rhonchi and no wheezes Cardio Rate: regular rate Rhythm: regular rhythm Skin General skin exam: no rashes or lesions noted Neuro General: patient oriented x3 Gait exam (Neuro): Normal gait present Extrem General: Yes normal to inspection, Yes full ROM and No edema Psych Affect: normal affect Attitude: cooperative Insight: Good insight present (Psych) Judgement: Good judgement present (Psych) Results AMB Hemoglobin A1c AMB Hemoglobin A1c 8.5 % Last Edit by ANAYELI oCy on 02/10/25 14:06 Results Reviewed Results Reviewed: Laboratory Last Values Hgb A1c (Clinic) 8.5 % (4.0-6.0) H 02/10/25 14:04 Coding Level of Care Code New Pt Level 4 (54097) Diagnoses Primary hypertension I10 Hypertension type: primary hypertension Type 2 diabetes mellitus with diabetic polyneuropathy, with long-term current use of insulin E11.42; Z79.4 Diabetes mellitus complication detail: with polyneuropathy Diabetes mellitus complication status: with neurologic complications Diabetes mellitus 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 insulin use: with shelter use Diabetes mellitus type: type 2 Acquired hypothyroidism E03.9 Hypothyroidism type: acquired Hypercholesteremia E78.00 Neuropathy G62.9 Chronic back pain M54.9; G89.29 Additional Codes ISMAEL-7 Assessment Billing - ISMAEL-7 Assessment Tool: ISMAEL-7 Assessment 03284 ([id number]) PHQ-9 - 09151 - PHQ-9 Billing: Yes ([id number]) Assessment & Plan Assessment & Plan (1) Hypertension: Code(s): I10 - Essential (primary) hypertension Category: Medical Qualifiers: Hypertension type: primary hypertension Qualified Code(s): I10 - Essential (primary) hypertension Plan: Continue on current blood pressure medication. Avoid salt intake and encourage healthy diet and regular exercise. (2) Diabetes: Code(s): E11.9 - Type 2 diabetes mellitus without complications Category: Medical Qualifiers: Diabetes mellitus complication detail: with polyneuropathy Diabetes mellitus complication status: with neurologic complications Diabetes mellitus 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 insulin use: with shelter use Diabetes mellitus type: type 2 Qualified Code(s): E11.42 - Type 2 diabetes mellitus with diabetic polyneuropathy; Z79.4 - superintendent marine oil terminal (current) use of insulin Plan: Decrease the amount of carbohydrates such as pasta, bread, rice, and potatoes and limit the amount of sweets. Although fruits are generally healthy they should be eaten in moderation as they are still high in sugar. Hemoglobin A1c goal of less than 7%. A1c in the clinic today 8.5%. Patient has been inconsistently using insulin and metformin from friends and family which may reflect in the A1c. Given that she has been inconsistently taking the medications plan to started on lower dose of the long-acting insulin and plan to restart on Trulicity or Ozempic as this is beneficial for her sugars in the past. I will also place a referral to endocrinology at the patient request today. The plan for diabetes management includes restarting metformin and Trulicity, with a potential switch to Ozempic if insurance coverage allows. The patient is advised to monitor blood glucose levels and report any significant changes. A follow-up appointment is scheduled in one month to reassess A1c levels and adjust treatment as necessary. She is to closely monitor her sugars and reach out if she begins to have lows or blood sugars are not well controlled. We will follow up in 1 month. (3) Hypothyroid: Code(s): E03.9 - Hypothyroidism, unspecified Category: Medical Qualifiers: Hypothyroidism type: acquired Qualified Code(s): E03.9 - Hypothyroidism, unspecified Plan: Patient has been inconsistently taking lower doses of levothyroxine for the last several months. Plan to recent her appropriate dose of levothyroxine 137 mcg to her pharmacy and check blood work. (4) Hypercholesteremia: Code(s): E78.00 - Pure hypercholesterolemia, unspecified Category: Medical Plan: Avoid foods that are high in cholesterol such as red meat, fried foods, eggs and baked goods. Triglyceride goal of less than 150 and LDL goal of less than 100. Continue on Atorvastatin and ordered for updated blood work (5) Neuropathy: Code(s): G62.9 - Polyneuropathy, unspecified Category: Medical Plan: Gabapentin is prescribed for neuropathy management. The patient is instructed to take her own prescribed medication and report any worsening of symptoms. (6) Chronic back pain: Code(s): M54.9 - Dorsalgia, unspecified; G89.29 - Other chronic pain Category: Medical Plan: The patient is advised to continue using ibuprofen 800 mg as needed for chronic back pain. Further evaluation may be considered if pain persists or worsens. Plan This note was constructed using voice recognition software. While every effort has been made to ensure accuracy and electronics system mechanic, still areas may have been included sometimes these areas may affect the content or meeting of the given symptoms. Total time spent caring for the patient today was 30 minutes. This includes time spent before the visit reviewing the chart, time spent during the visit, and time spent after the visit and documentation. Patient was informed and verbally consented to the use of an ambient scribe for clinic note documentation during this visit. Orders: Orders MM tomosynthesis screening BI 02/10/25 Z12.31 - Encounter for screening mammogram for malignant neoplasm of breast Lipid Panel 02/10/25 E78.00 - Pure hypercholesterolemia, unspecified TSH reflex Free T4 02/10/25 E03.9 - Hypothyroidism, unspecified, Z13.29 - Encounter for screening for other suspected endocrine disorder Vitamin B12 and Folate 02/10/25 Z13.21 - Encounter for screening for nutritional disorder Vitamin D 25-OH Total 02/10/25 Z13.21 - Encounter for screening for nutritional disorder Comprehensive Met. Panel 02/10/25 E11.9 - Type 2 diabetes mellitus without complications, Z00.00 - Encounter for general adult medical examination without abnormal findings Free T4 (Free Thyroxine) 02/10/25 E03.9 - Hypothyroidism, unspecified, Z00.00 - Encounter for general adult medical examination without abnormal findings Complete Blood Count Auto Diff 02/10/25 E11.9 - Type 2 diabetes mellitus without complications, Z00.00 - Encounter for general adult medical examination without abnormal findings Microalbumin, Random (w Creat) 02/10/25 E11.42 - Type 2 diabetes mellitus with diabetic polyneuropathy, E11.9 - Type 2 diabetes mellitus without complications, Z79.4 - superintendent marine oil terminal (current) use of insulin UA CC w/rflx Micro + Cult 02/10/25 E11.42 - Type 2 diabetes mellitus with diabetic polyneuropathy, R35.89 - Other polyuria, Z79.4 - superintendent marine oil terminal (current) use of insulin AMB Hemoglobin A1c 02/10/25 Z13.9 - Encounter for screening, unspecified Referrals Endocrinology Referral E11.9 - Type 2 diabetes mellitus without complications Medications: New blood-glucose meter (OneTouch Verio Flex Meter) As directed 1 ea 0RF lancets (OneTouch UltraSoft 2 Lancet) As directed 100 ea 0RF gabapentin 300 mg PO DAILY 90 caps 0RF semaglutide (Ozempic) for 4 weeks 0.25 mg (0.368 mL) subcut QWEEK 3 mL 0RF E11.42 - Type 2 diabetes mellitus with diabetic polyneuropathy, Z79.4 - alf (current) use of insulin levothyroxine 137 mcg PO DAILY 90 tabs 0RF blood-glucose meter (OneTouch Verio Flex Meter) As directed 1 ea 0RF E11.42 - Type 2 diabetes mellitus with diabetic polyneuropathy, Z79.4 - alf (current) use of insulin blood sugar diagnostic (OneTouch Verio test strips) As directed 50 ea 0RF E11.42 - Type 2 diabetes mellitus with diabetic polyneuropathy, Z79.4 - superintendent marine oil terminal (current) use of insulin blood-glucose sensor (Dexcom G7 Sensor device) As directed 1 ea 0RF E11.42 - Type 2 diabetes mellitus with diabetic polyneuropathy, Z79.4 - alf (current) use of insulin blood-glucose,warehouse administrator,cont (Dexcom G7 Video Poker Floorman) As directed 1 ea 0RF E11.42 - Type 2 diabetes mellitus with diabetic polyneuropathy, Z79.4 - superintendent marine oil terminal (current) use of insulin ibuprofen 800 mg PO Q8H PRN 30 tabs 0RF pain atorvastatin 20 mg PO DAILY 90 tabs 0RF blood sugar diagnostic (OneTouch Verio test strips) As directed 50 ea 0RF losartan 100 mg PO DAILY 90 tabs 0RF hydroxyzine HCl 25 mg PO BID 60 tabs 1RF semaglutide (Ozempic) for 4 weeks 0.25 mg (0.368 mL) subcut QWEEK 3 mL 0RF E11.42 - Type 2 diabetes mellitus with diabetic polyneuropathy, Z79.4 - superintendent marine oil terminal (current) use of insulin losartan 100 mg PO DAILY 90 tabs 0RF E11.42 - Type 2 diabetes mellitus with diabetic polyneuropathy, Z79.4 - superintendent marine oil terminal (current) use of insulin lancets (OneTouch UltraSoft 2 Lancet) As directed 100 ea 0RF E11.42 - Type 2 diabetes mellitus with diabetic polyneuropathy, Z79.4 - superintendent marine oil terminal (current) use of insulin Changed From metformin 1,000 mg PO DAILY To metformin 1,000 mg PO BID 90 days 180 tabs 0RF From trazodone 50 mg PO NEEDED PRN Sleep To trazodone 50 mg PO .QHS PRN 30 tabs 0RF Sleep From insulin glargine (Lantus Solostar U-100 Insulin) 40 units subcut QPM E11.42 - Type 2 diabetes mellitus with diabetic polyneuropathy, Z79.4 - alf (current) use of insulin To insulin glargine (Lantus Solostar U-100 Insulin) 20 units (0.2 mL) subcut QPM 3 mL 0RF E11.42 - Type 2 diabetes mellitus with diabetic polyneuropathy, Z79.4 - superintendent marine oil terminal (current) use of insulin Refilled gabapentin 300 mg PO DAILY 90 caps 0RF E11.42 - Type 2 diabetes mellitus with diabetic polyneuropathy, Z79.4 - superintendent marine oil terminal (current) use of insulin trazodone 50 mg PO .QHS PRN 30 tabs 0RF Sleep E11.42 - Type 2 diabetes mellitus with diabetic polyneuropathy, Z79.4 - alf (current) use of insulin metformin 1,000 mg PO BID 180 tabs 0RF 90 days E11.42 - Type 2 diabetes mellitus with diabetic polyneuropathy, Z79.4 - superintendent marine oil terminal (current) use of insulin atorvastatin 20 mg PO DAILY 90 tabs 0RF E11.42 - Type 2 diabetes mellitus with diabetic polyneuropathy, Z79.4 - alf (current) use of insulin
[2025-02-10 13:21] VITALS: BP 132/72; PULSE 101; O2SAT 97; BMI 35.2
--- OUTSIDE RECORDS SUMMARY | 2025-02-10 15:39 | XMS_ITS | Encounter Summary ---
Author Organization [facility] Address [address] [place] [address] Phone Care Team Providers Care Supervisor Pit And Auxiliaries Name Role Phone Pcp, Unknown Primary Care Provider Andi Mendoza MD Primary Care Provider + Andi Burns MD Primary Care Provider + Encounter Details Date Type Department Care Team (Latest Contact Info) Description 03/02/2020 Transcribe Orders Virtual Department [address] [place] [address] Surinder Magdaleno MD [address] [facility] [address] [place] [address] Encounter for laboratory testing for COVID-19 virus (Primary Dx) Social History Tobacco Use Types Packs/Day Years Used Date Smoking Tobacco: Former Alcohol Use Standard Drinks/Week Comments Not Currently 0 (1 standard drink = 0.6 oz pur e alcohol) Comments No Sex and Gender Information Value Date Recorded Sex Assigned at Female 12/15/2019 11:11 PM EDT Legal Sex Female 9:39 PM EDT Gender Identity Female 12/15/2019 11:11 PM EDT Sexual Orientation Not on file documented as of this encounter Plan of Treatment Not on file documented as of this encounter Results * COVID-19 PCR Order (03/07/2020 4:16 PM EDT) Specimen Source 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 PROFESSOR) [facility] COVID Testing Status Sent to [facility] Other 03/07/2020 4:16 PM EDT 03/07/2020 5:43 PM EDT us Surinder Magdaleno MD BODY FLUIDS AND STOOLS O RDERABLES Final Result [facility] [address] [place] [address] documented in this encounter Visit Diagnoses Diagnosis Encounter for laboratory testing for COVID-19 virus- Primary documented in this encounter Additional Health Concerns Infection Onset Date Last Indicated Resolved Time CoV-Exposed Comment:Recent close contact 03/02/2020 03/02/2020 03/16/2020 1:23 AM EDT documented as of this encounter Care Teams Supervisor [employer] Auxiliaries Relationship Specialty Start Date End Date Pcp, Unknown PCP - General 12/15/19 03/02/20 Andi Burns MD [address] [place] [id number] PCP - General Internal Medicine 03/03/20 03/16/22 Andi Burns MD [address] [place] [id number] PCP - General Internal Medicine 03/17/22 documented as of this encounter Additional Source Comments The information contained in this document represents components of the legal health record. It is not the complete legal health record.[facility]
--- OUTSIDE RECORDS SUMMARY | 2025-02-10 15:39 | XMS_ITS | Encounter Summary ---
Author Organization [facility] Address [address] [place] [address] Phone Care Team Providers Care Wash Driller Name Role Phone Pcp, Unknown Primary Care Provider Andi Mendoza MD Primary Care Provider + Andi Burns MD Primary Care Provider + Encounter Details Date Type Department Care Team (Latest Contact Info) Description 02/11/2020 Transcribe Orders Virtual Department [address] [place] [address] Surinder Magdaleno MD 8 [facility] [address] [place] [address] Encounter for laboratory testing for COVID-19 virus [...] this encounter Results * COVID-19 PCR Order (02/13/2020 2:48 PM EDT) Specimen Source 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 (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 TENDER) [facility] COVID Testing Status Sent to [facility] Other 02/13/2020 2:48 PM EDT 02/13/2020 3:18 PM EDT us Surinder Magdaleno MD BODY FLUIDS AND STOOLS O RDERABLES Final Result [facility] [address] [place] [address] documented in this encounter Visit Diagnoses Diagnosis Encounter for laboratory testing for COVID-19 virus- Primary documented in this encounter Additional Health Concerns Infection Onset Date Last Indicated Resolved Time CoV-Exposed Comment:Recent close contact 03/02/2020 03/02/2020 03/16/2020 1:23 AM EDT documented as of this encounter Care Teams Wash Driller Relationship Specialty Start Date End Date Pcp, Unknown PCP - General 12/15/19 03/02/20 Andi Burns MD [address] [place] [id number] PCP - General Internal Medicine 03/03/20 03/16/22 Andi Burns MD [address] [place] [phone] PCP - General Internal Medicine 03/17/22 documented as of this encounter Additional Source Comments The information contained in this document represents components of the legal health record. It is not the complete legal health record.[facility]
--- OUTSIDE RECORDS SUMMARY | 2025-02-10 15:40 | XMS_ITS ---
Author Name [facility] Organization Unknown Care Team Organization Name Specialty Phone Email Start Date End Da te [facility] 03/07/2023 4 [facility] 04/11/2022 4
--- OUTSIDE RECORDS SUMMARY | 2025-02-10 15:40 | XMS_ITS | Clinical Summary ---
Author Organization [facility] Address [address] [place] [address] Phone Care Team Providers Care Flame Hardening Machine Operator Name Role Phone Andi Burns MD Primary Care Provider Allergies No known active allergies Medications atorvastatin (LIPITOR) 20 mg tablet Take 1 Tablet by mouth daily. 4 Active pen needle, diabetic (BD Ultra-Fine Orig Pen Needle) 29 gauge x 1/2 needle Use four times daily to administer Insulin 4 Active cyclobenzaprine (FLEXERIL) 10 mg tablet TAKE 1 TABLET BY MOUTH EVERY DAY IN THE EVENING 4 Active gabapentin (NEURONTIN) 300 mg capsule Take 1 Capsule by mouth 3 times daily. 4 Active blood sugar diagnostic (OneTouch Verio test strips) test strip Use to check blood sugars four times daily 4 Active ibuprofen (ADVIL,MOTRIN) 800 mg tablet TAKE 1 TABLET BY MOUTH EVERY 8 HOURS NEEDED FOR PAIN 4 Active insulin glargine (Lantus Solostar U-100 Insulin) 100 unit/mL (3 mL) injection pen Inject 42 Units into the skin every evening. 4 Active losartan (COZAAR) 100 mg tablet Take 1 Tablet by mouth daily for 360 days. 4 02/22/20 25 Active metFORMIN (GLUCOPHAGE) 1,000 mg tablet Take 1 Tablet by mouth daily. 4 Active ONETOUCH DELICA LANCETS MISC 1 Each by Does not apply route 4 times daily. 9 Active traZODone (DESYREL) 50 mg tablet Take 0.5 Tablets by mouth at bedtime. 3 Active levothyroxine (SYNTHROID, LEVOTHROID) 137 mcg tablet TAKE 1 TABLET BY MOUTH EVERY DAY 90 tablet 1 5 Active hydrOXYzine HCL (ATARAX) 25 mg tablet TAKE 1 TABLET BY MOUTH AT BEDTIME 30 each 5 Active Active Problems Problem Noted Date Diagnosed Date Brain aneurysm 04/01/2024 Overview (04/30/2024): Last Assessment & Plan: Patient comes in with history of 2.5 mm right MCA bifurcation aneurysm noted on neck [place] [facility]. She has chronic history of headaches, I reviewed multiple [place] spanning 0065-1271 [place] [facility] [place] for [place], they did not have any acute findings or aneurysms noted. Patient went [place] [facility] [place] 2023 and part of her headache workup included the CTA. She denies family history of brain aneurysms, polycystic kidney disease, quit smoking 9 years ago. She does hwang with hypertension, at times is difficult to control. She also has diabetes, which she states can be difficult to control, has issues with her vision due to her diabetes. PCP notes mention hemoglobin A1c from September 10.. Ms. Ortega did not come in with her CTA imaging, her PCP note mentions May 2023 head and neck CTA [place] [facility] that showed 2.5 mm right MCA bifurcation aneurysm, would need 1 year follow-up. She also had brain MRI at that ED visit with no acute intracranial pathology. We called [facility] to request imaging report and CD to be sent to the office. I will order follow-up brain CTA that would be due in May. Patient states she is doing her best to control her high blood pressure, recently started losartan. All questions answered. I asked her to call with any concerns or questions, we will call her with results of the CTA. Hepatic steatosis 08/25/2022 Lumbar radiculopathy 06/30/2022 Chronic bilateral low back pain 06/30/2022 Postsurgical hypothyroidism 11/12/2018 Microalbuminuria 08/16/2016 Hypertriglyceridemia 08/16/2016 Kidney stones 07/31/2016 Type 2 diabetes mellitus wit h cataract [place] [place] [facility] [place] 06/30/2016 Cataract 06/30/2016 Proteinuria 06/28/2016 DM (diabetes mellitus), type 2 with renal complications [place] [place] [facility]) 06/28/2016 Diabetic neuropathy ([facility] [place] [facility] [place]) 0 06/28/2016 Onychomycosis 08/06/2015 Diabetes mellitus type 2 wit h neurological manifestations [place] [place] [facility] 08/06/2015 Hyperlipidemia 07/15/2015 Graves disease 07/15/2015 Overview (04/30/2024): S/P total thyroidectomy Essential hypertension 07/15/2015 Immunizations Name Administration Dates Next Due Influenza Quadravalent, MDCK , 0.5ml, preservative free (Flucelvax) 6mo and older 03/16/2023,06/30/2022,03/16/2021,04/23 Moderna SARS-CoV-2 COVID-19, mRNA, LNP-S, preservative free 06/17/2021,12/28/2020,11/30/2020 Pneumococcal polysaccharide 23 valent (Pneumovax 23) 2yo and older 07/04/2017,05/08/2012 Tdap Tetanus diptheria acell ular pertussis (Boostrix; Adacel) 7yo and older 04/23/2020 Surgical History Surgery Date Site/Laterality Comments BLADDER SUSPENSION 2013 PROCEDURE: HISTORICAL BLADDER SUSPENSION OTHER SURGICAL HISTORY PROCEDURE: ---- OTHER ----; COMMENT: kidney stone times 3 MULTIPLE TOOTH EXTRACTIONS PROCEDURE: HISTORICAL DENTAL EXTRACTION THYROIDECTOMY PROCEDURE: HISTORICAL TOTAL THYROIDECTOMY COLONOSCOPY 05/25/2017 PROCEDURE: HISTORICAL COLONOSCOPY; COMMENT: Solitary 5 mm rectal polyp: hyperplastic. Medical History Medical History Date Comments Type 2 diabetes mellitus, uncontrolled, with neuropathy 08/06/2015 DX:Type 2 diabetes melli tus, uncontrolled, with neuropathy Onychomycosis 08/06/2015 DX:Onychomycosis DM (diabetes mellitus), type 2 with renal complications [place] [place] [facility]) 06/28/2016 DX:DM (diabetes mellitus), t ype 2 with renal complications ([facility]) Proteinuria 06/28/2016 DX:Proteinuria Diabetic neuropathy ([facility], [facility] V28) 06/28/2016 DX:Diabetic neuropathy (HCC) Cataract 06/30/2016 DX:Cataract Type 2 diabetes mellitus wit h cataract ([facility] V24, [facility] V28) 06/30/2016 DX:Type 2 diabetes mellitus with cataract (HCC) Hyperlipidemia 07/15/2015 DX:Hyperlipidemi a Diabetes mellitus type 2 wit h neurological manifestations ([facility] V24, [facility] V28) 08/06/2015 DX:Diabetes mellitus type 2 with neurological manifestations (HCC) Family History Medical History Relation Name Comments Diabetes Father Cataracts Maternal Grandmother Other: Other Mother cirrhosis, bloo s transfusion Relation Name Status Comments Father Maternal Grandmother Mother Social History Tobacco Use Types Packs/Day Years Used Date Smoking Tobacco: Former Cigarettes Q uit: 05/13/2018 Smokeless Tobacco: Never Alcohol Use Standard Drinks/Week Comments No 0 (1 standard drink = 0.6 oz pur e alcohol) Comments Unknown Sex and Gender Information Value Date Recorded Sex Assigned at Not on file Legal Sex Female 4:36 AM EST Gender Identity Not on file Sexual Orientation Not on file Obstetrics History Last Filed Vital Signs Vital Sign Reading Time Taken Comments Blood Pressure 139/89 03/11/2024 3:27 PM EDT a Pulse 86 03/11/2024 3:20 PM EDT Temperature - - Respiratory Rate - - Oxygen Saturation - - Inhaled Oxygen Concentration - - Weight 106 kg (233 lb) 04/01/2024 11:36 AM EDT Height 167.6 cm (5' 6 ) 04/01/2024 11:36 AM EDT Body Mass Index 37.61 04/01/2024 11:36 AM EDT Plan of Treatment Upcoming Encounters Date Type Department Care Team (Late st Contact Info) Description 02/25/2025 4:15 PM EDT Office Visit Nephrology [address] [phone] Mao Duron MD [address] [facility] [address] [place] [phone] Health Maintenance Due Date Last Done Comments Diabetes: Annual Foot Exam 1976 Diabetes: Annual Retina Eye Exam 1976 Hepatitis B Vaccines (1 of 3 - 19+ 3-dose series) 1985 Zoster Vaccines (1 of 2) 2016 Pneumococcal Vaccine: 50+ Years (2 of 2 - PCV) 07/04/2018 07/04/2017, 03/21/2014, 05/08/2012 HIV Screening 05/13/2022 Social Influencers of Health Screening 05/13/2022 Breast Cancer Screening 04/25/2023 04/25/2021 Diabetes: Blood Sugar Control Test (HGBA1C) 03/19/2024 09/18/2023 Depression Screening 06/04/2024 Diabetes: Annual Urine Albumin-Creatinine Ratio (uACR) 09/16/2024 09/17/2023 Diabetes: Annual GFR (Glomerular Filtration Rate) 09/17/2024 09/18/2023 Hypertension/CHF/CAD Annual BMP Blood Test 09/17/2024 09/18/2023 COVID-19 Vaccine ( season) 2025 06/17/2021, 12/28/2020, 11/30/2020 Influenza Vaccine (#1) 2025 , 06/30/2022, 03/16/2021, Additional history exists Cervical Cancer Screening: HPV 03/23/2027 03/23/2022 Colorectal Cancer Screening: Colonoscopy 05/25/2027 05/25/2017 Cholesterol Screening (Lipid Panel) 09/17/2028 09/18/2023 DTaP,Tdap,and Td Vaccines (2 - Td or Tdap) 04/23/2030 04/23/2020 Hepatitis C Screening Completed 11/01/2017 HIB Vaccines Aged Out No longer eligi ble based on patient's age to complete this topic HPV Vaccines Aged Out No longer eligi ble based on patient's age to complete this topic Hepatitis A Vaccines Aged Out No long er eligible based on patient's age to complete this topic IPV Vaccines Aged Out No longer eligi ble based on patient's age to complete this topic MMR Vaccines Aged Out No longer eligi ble based on patient's age to complete this topic Meningococcal ACWY Vaccine Aged Out N o longer eligible based on patient's age to complete this topic Meningococcal B Vaccine Aged Out No l onger eligible based on patient's age to complete this topic RSV Immunization Patients Under 20 months Aged Out No longer eligible based on patient's age to complete this topic Varicella Vaccines Aged Out No longer eligible based on patient's age to complete this topic Procedures Procedure Name Priority Date/Time Associated Diagnosis Comments ANNUAL BMP BLOOD TEST Routine 09/18/2023 HEMOGLOBIN A1C Routine 09/18/2023 LIPID PANEL Routine 09/18/2023 URINE ALBUMIN CREATININE RATIO Routine 09/17/2023 HPV Routine 03/23/2022 SCREENING MAMMOGRAPHY BI 2-VIEW BREAST INC CAD Routine 04/25/2021 4:01 PM EST Encounter for screening mammogram for malignant neoplasm of breast HEPATITIS C SCREENING Routine 11/01/2017 COLONOSCOPY Routine 05/25/2017 from Last 3 Months or Most Recently Relevant to Health Maintenance Results * Annual BMP Blood Test (09/18/2023) Annual BMP Blood Test Abstracted Result [facility] Provider HEALTH MAINTENANCE Final Result * (ABNORMAL) Hemoglobin A1c (09/18/2023) Hemoglobin A1C 9.3(A) <=6.5 % Blood Venous blood specimen / Unknown Result [facility] Provider LAB BLOOD ORDERABLES Arielle l Result * (ABNORMAL) Lipid panel (09/18/2023) LDL/HDL Ratio 4 0 - 4 Triglycerides 282(A) 0 - 150 mg/dL Cholesterol 173 0 - 200 mg/dL HDL 45 >=40 mg/dL LDL Cholesterol 72 0 - 100 mg/dL Blood Venous blood specimen / Unknown Result [facility] Provider LAB BLOOD ORDERABLES Arielle l Result * Urine Albumin Creatinine Ratio (09/17/2023) Urine Albumin Creatinine Ratio Abstracted Result [facility] Historical Provider HEALTH MAINTENANCE Final Result * Cervical Cancer Screening: HPV (03/23/2022) Cervical Cancer Screening: HPV Abstracted, Not detected Historical Provider HEALTH MAINTENANCE Final Result * SCREENING MAMMOGRAPHY BI 2-VIEW BREAST INC CAD (04/25/2021 4:01 PM EST) Anatomical Region Laterality Modality Radiographic Simona ging 12/08/2020 2:42 PM EDT Narrative 04/26/2021 11:57 AM EST This is a summary report. The complete report is available in the patient's medical record. If you cannot access the medical record, please contact the sending organization for a detailed fax or copy. Full field digital screening 2D and 3D mammography, reviewed with CAD and compared to previous mammograms of 09/12/2016 and 03/08/2020. The breasts are composed of fatty and fibroglandular tissue. No suspicious mass, architectural distortion or suspicious calcifications are identified. IMPRESSION: : No mammographic evidence of malignancy. BIRADS 1-Negative; N. 5 year breast cancer risk assessment 0.7 % Lifetime breast cancer risk assessment 5.3 % Breast cancer risk category Low (<15%) Procedure Note Kelly Genao MD - 05/23/2022 This is a summary report. The complete report is available in thepatient's medical record. If you cannot access the medical record, pleasecontact the sending organization for a detailed fax or copy. Full field digital screening 2D and 3D mammography, reviewed with CAD andcompared to previous mammograms of 09/12/2016 and 03/08/2020. The breastsare composed of fatty and fibroglandular tissue. No suspicious mass,architectural distortion or suspicious calcifications are identified. IMPRESSION: : No mammographic evidence of malignancy. BIRADS 1-Negative; N. 5 year breast cancer risk assessment 0.7 % Lifetime breast cancer risk assessment 5.3 % Breast cancer risk category Low (<15%) Andi Burns MD IMG XR PROCEDURES Final Result * Hepatitis C Screening (11/01/2017) Hepatitis C Screening Abstracted Historical Provider HEALTH MAINTENANCE Final Result * Colonoscopy (05/25/2017) Colonoscopy Abstracted, Normal Anatomical Region Laterality Modality Other Historical Provider HEALTH MAINTENANCE Final Result from Last 3 Months or Most Recently Relevant to Health Maintenance Insurance [facility] Care Teams Flame Hardening Machine Operator Relationship Specialty Start Date End Date Andi Burns MD [address] [place], [place] PCP - General Internal Medicine 04/18/24
--- OUTSIDE RECORDS SUMMARY | 2025-02-10 15:40 | XMS_ITS | Encounter Summary ---
Author Organization [facility] Address [address] [place] [address] Phone Care Team Providers Care Skin Pass Operator Name Role Phone Andi Burns MD Primary Care Provider + Andi Burns MD Primary Care Provider + Encounter Details Date Type Department Care Team (Latest Contact Info) Description 06/09/2020 Transcribe Orders Virtual Department [address] [place] [address] Surinder Magdaleno MD [address] [facility] [address] [place] [address] Encounter for laboratory testing for COVID-19 virus [...] this encounter Results * COVID-19 PCR Order (06/21/2020 7:53 AM EST) COVID Testing Status PATIENT DID NOT ARRIVE FOR SCHEDULED TESTING. [facility] Comment:PROVIDER TO RESCHEDU LE NECESSARY. Symptomatic? NO [facility] Other 06/21/2020 7:53 AM EST 06/21/2020 8:00 PM EST us Surinder Magdaleno MD BODY FLUIDS AND STOOLS O RDERABLES Final Result [facility] [address] [place] [address] documented in this encounter Visit Diagnoses Diagnosis Encounter for laboratory testing for COVID-19 virus- Primary documented in this encounter Care Teams Skin Pass Operator Relationship Specialty Start Date End Date Andi Burns MD [address] [place] [phone] PCP - General Internal Medicine 03/03/20 03/16/22 Andi Burns MD [address] [place] [phone] PCP - General Internal Medicine 03/17/22 documented as of this encounter Additional Source Comments The information contained in this document represents components of the legal health record. It is not the complete legal health record.[facility]
--- OUTSIDE RECORDS SUMMARY | 2025-02-10 15:40 | XMS_ITS | Clinical Summary ---
Author Organization [facility] Address [address] [address] Phone Care Team Providers Care Financial Compliance Manager Name Role Phone Andi Burns MD Primary Care Provider + Allergies No known active allergies Medications lisinopril (PRINIVIL,ZESTRI L) 40 MG tablet Take 40 mg by mouth daily. Active levothyroxine (SYNTHROID, LEVOTHROID) 125 MCG tablet Take 125 mcg by mouth every morning. Active Social History Tobacco Use Types Packs/Day Years Used Date Smoking Tobacco: Former Alcohol Use Standard Drinks/Week Comments Not Currently 0 (1 standard drink = 0.6 oz pur e alcohol) Education Answer Date Recorded Are you interested in more education? Not on portia e 09/29/2022 Are you concerned about learning? Not on file 09/29/2022 No 09/29/2022 No 09/29/2022 Digital Access Answer Date Recorded No 10/30/2022 No 10/30/2022 No 10/30/2022 Reliable internet access at home? Not on file 10/30/2022 Device with a working camera? Not on file Comments No Sex and Gender Information Value Date Recorded Sex Assigned at Female 12/15/2019 11:11 PM EDT Legal Sex Female 9:39 PM EDT Gender Identity Female 12/15/2019 11:11 PM EDT Sexual Orientation Not on file Last Filed Vital Signs Vital Sign Reading Time Taken Comments Blood Pressure 106/70 03/17/2022 9:13 AM EDT Pulse 83 03/17/2022 9:13 AM EDT Temperature 35.9 C (96.6 F) 03/17/2022 9:13 AM EDT Respiratory Rate 18 03/17/2022 9:13 AM EDT Oxygen Saturation 96% 03/17/2022 9:13 AM EDT Inhaled Oxygen Concentration - - Weight 110.2 kg (243 lb) 03/17/2022 2:26 AM EDT Height 167.6 cm (5' 6 ) 03/17/2022 2:26 AM EDT Body Mass Index 39.22 03/17/2022 2:26 AM EDT Plan of Treatment Health Maintenance Due Date Last Done Comments TSH LEVEL 1966 DEPRESSION SCREENING 1978 SMOKING Hx and SMOKELESS TOBACCO SCREENING 1979 HEPATITIS C SCREENING 1984 HIV ONE-TIME SCREENING (18-6 5 YEARS) 1984 PAP SMEAR 1987 SCREENING FOR DIABETES 2001 MAMMOGRAM 2006 COLOGUARD 2011 COLONOSCOPY 2011 COLORECTAL CANCER SCREENING 2011 FIT TEST 2011 FOBT 2011 SIGMOIDOSCOPY 2011 VIRTUAL COLONOSCOPY 2011 ZOSTER VACCINES (1 of 2) 2016 PNEUMOCOCCAL VACCINES (50+ years) (2 of 2 - PCV) 07/04/2018 07/04/2017, 05/08/2012 CREATININE LEVEL 03/17/2023 03/17/2022 POTASSIUM LEVEL 03/17/2023 03/17/2022 COVID-19 VACCINE (4 - 2023-2 5 season) 2024 06/17/2021, 12/28/2020, 11/30/2020 LIPID PANEL 04/21/2025 04/21/2020 Adult Td,Tdap Booster 04/23/2030 04/23/2020 HEPATITIS A VACCINES Aged Out No long er eligible based on patient's age to complete this topic HIB VACCINES Aged Out No longer eligi ble based on patient's age to complete this topic MENINGOCOCCAL VACCINES (ACWY) Aged Out No longer eligible based on patient's age to complete this topic MENINGOCOCCAL VACCINES (B) Aged Out N o longer eligible based on patient's age to complete this topic Medical Devices Not on file Procedures Procedure Name Priority Date/Time Associated Diagnosis Comments BASIC METABOLIC PANEL STAT 03/17/2022 7:15 AM EDT from Last 3 Months or Most Recently Relevant to Health Maintenance Results * (ABNORMAL) Basic metabolic panel (03/17/2022 7:15 AM EDT) SODIUM 141 133 - 146 mmol/L [facility] CHLORIDE 100 96 - 108 mmol/L [facility] POTASSIUM 4.8 3.3 - 5.1 mmol/L [facility] CO2 28 21 - 35 mmol/L [facility] BUN 23(H) 6 - 19 mg/dL [facility] CREATININE 0.90 0.5 - 1.5 mg/dL [facility] GLUCOSE 188(H) 70 - 99 mg/dL [facility] CALCIUM 9.4 8.4 - 10.3 mg/dL [facility] EGFR 75 >59 mL/min/1.7 3m2 [facility] Comment:Estimated glomerular filtration rate calculated using the CKD-EPI refit equation. ANION GAP 18 10 - 20 mmol/L [facility] Blood 03/17/2022 7:15 AM EDT 03/17/2022 7:22 AM EDT Anita David MD LAB BLOOD ORDERABLES Final Result [facility] [address] [place] [address] from Last 3 Months or Most Recently Relevant to Health Maintenance Insurance [facility] PPO EPO [facility] PPO EPO [facility] PPO EPO [facility] PPO EPO [id number] [place] [address] PPO EPO [id number] [place] [address] PPO EPO [facility] PPO EPO [facility] PPO EPO [facility] PPO EPO Care Teams Financial Compliance Manager Relationship Specialty Start Date End Date Andi Burns MD [address] [place] [phone] PCP - General Internal Medicine 03/17/22 Additional Source Comments The information contained in this document represents components of the legal health record. It is not the complete legal health record.[facility]
--- OUTSIDE RECORDS SUMMARY | 2025-02-10 15:40 | XMS_ITS | Patient Health Record ---
[facility] Organization [facility] Address [address] [place] [address] Care Team Providers Care Mobile Tester Name Role Phone Lydia Kuhn Primary Care Provider Unavailab Carlos Enrique Lazo Unavailable [phone] Allergies No Known Allergies Results Component Value Reference Range Notes HEMOGLOBIN A1C (GLYCOHEMOGLO BIN) Reviewed date:11/12/2024 04:10:02 PM Interpretation: Performing Lab: Notes/Report: HEMOGLOBIN A1C % (HH) 9.3 Reason For Referral No Information Medications Medication SIG (Take, Route, Frequency, Duration) Notes Start Date End Date Status Potassium Active Metoprolol Succinate ER 10 MG 1 tablet Orally Once a day; Duration: 30 day(s) Active methIMAzole 10 MG 1 tablet Orally Once a day; Duration: 30 day(s) Active Lisinopril 30 MG 1 tablet Orally Once a day; Duration: 30 day(s) Active Extra Depth Orthopedic Shoes (1 Pair) with Customized Heat Molded Multidensity Innersoles (3 Pair) as directed Dx: NIDDM (E11.9), Hammertoe Foot Deformity (M20.41,M20.42), Preulcerative Skin Lesion(s) (L85.1) 11/12/2024 Active metFORMIN HCl 1000 MG 1 tablet with meal s Orally Twice a day; Duration: 30 day(s) Active Insulin 25/50 units twice a day Active Immunizations Vaccine Route Administration Date Status Comme nts Influenza Unknown 03/04/2024 Administered Social History Tobacco Use: Social History Observation Description Date Details (start date - stop date) Never Smoker NA - NA Tobacco use other than smoking: Question Answer Notes Are you an other tobacco user? No Tobacco Control (Standard) Question Answer Notes Tobacco use: Nonsmoker Problems Problem Type SNOMED Code ICD Code Onset Dates Problem Status W/U Status Risk Notes Problem Acquired hammer toe of right foot (877413661100340 5) Other hammer toe(s) (acquired), right foot (M20.41) Active confirmed Problem Acquired hammer toe of left foot (368020547188956 3) Other hammer toe(s) (acquired), left foot (M20.42) Active confirmed Problem Type II diabetes mellitus without complication (329447848) Type 2 diabetes mellitus without complication (E11.9) Active confirmed Vital Signs Blood pressure diastolic 90 mm Hg 11/12/2024 Height 5ft6in in 11/12/2024 Blood pressure systolic 145 mm Hg 11/12/2024 Weight 223 lbs 11/12/2024 BMI 35.99 kg/m2 11/12/2024 Procedures Procedure Date Ordered Date Performed Result Body Sit e 66854-LEQFIEQ NAIL, 6 OR MORE 11/12/2024 N/A Encounters Encounter Location Date Provider Diagnosis [facility] [address] [address] 11/12/2024 Carlos Enrique Tobin Pain in right toe(s) M79.674 ; Tinea unguium B35.1 ; Pain in left toe(s) M79.675 ; Type 2 diabetes mellitus without complication E11.9 ; Other hammer toe(s) (acquired), right foot M20.41 and Other hammer toe(s) (acquired), left foot M20.42 [facility] [place] [address] [place] [address] 08/19/2024 Carlos Enrique Tobin Assessments Encounter Date Diagnosis (ICD Code) Assessment Notes Treatment Notes Treatment Clinical Notes Section Notes 11/12/2024 Pain in right toe(s) (ICD-10 - M79.674) 11/12/2024 Tinea unguium (ICD-10 - B35.1) 11/12/2024 Pain in left toe(s) (ICD-10 - M79.675) 11/12/2024 Type 2 diabetes mellitus without complication (ICD-10 - E11.9) 11/12/2024 Other hammer toe(s) (acquired), right foot (ICD-10 - M20.41) Patient Educated with: DIABETIC FOOT CARE INSTRUCTIONS.p df (DIABETIC FOOT CARE INSTRUCTIONS.p df) 11/12/2024 Other hammer toe(s) (acquired), left foot (ICD-10 - M20.42) Plan Of Treatment Pending Test Test Name Order Date [id number] NAIL, 6 OR MORE 10/11/2012 [id number] NAIL, 6 OR MORE 12/31/2012 [id number] NAIL, 6 OR MORE 11/12/2024 [id number]-Swjyolhu Plate 10/11/2012 [id number] SKIN LESIONS, 2 TO 4 01/01/20 13 Next Appt Details Provider Name:Carlos Enrique Tobin , 02/12/2025 04:00:00 PM, [address] [facility], [address], [place], [address], Insurance Providers Payer Name Payer Address Payer Phone Subscriber Number Group Number Insured Name Patient Relationship to Insured Coverage Start Date Coverage End Date [employer] Benefits [address] [address] [place] [address] [id number] Lisette Ortega Self - patient is the insured Medical (General) History Medical History History ICD Code diabetic thyroid disorder hypertension measles Anxiety Back,Hip,and Knee pain Cataracts High Blood Pressure Mumps Chicken pox Surgical History Surgery Date(Month/Year) eye procedure 10/16/24 tubal ligation 1989 kidney stones 2017 Thyroid removal Surgery 2019 Hospitalization History Reason Date(Month/Year) [facility] for high blood pressure 05/2012
== END 2025-02-10 14:30 | disposition home or self-care (01) ==
LOC: HO.HMCH 13:16
PROVIDERS: PCP Internal Medicine
DX: I10 Essential (primary) hypertension (principal); E11.42 Type 2 diabetes mellitus with diabetic polyneuropathy; Z79.4 Long term (current) use of insulin; E03.9 Hypothyroidism, unspecified; E78.00 Pure hypercholesterolemia, unspecified; G62.9 Polyneuropathy, unspecified; M54.9 Dorsalgia, unspecified; G89.29 Other chronic pain

== ENCOUNTER → 2025-02-10 13:16 | Outpatient (BNVA) | payer OTHER, SELFPAY | PROVIDERS: PCP Internal Medicine | DX: E11.42 Type 2 diabetes mellitus with diabetic polyneuropathy (principal); E03.9 Hypothyroidism, unspecified; E78.00 Pure hypercholesterolemia, unspecified; G62.9 Polyneuropathy, unspecified; M54.9 Dorsalgia, unspecified; G89.29 Other chronic pain; Z79.4 Long term (current) use of insulin; Z79.84 Long term (current) use of oral hypoglycemic drugs | CPT/HCPCS: 83036; 96127 ==

== ENCOUNTER 2025-03-04 15:34 | Outpatient (REF) | payer OTHER, SELFPAY ==
[2025-03-04 15:47] LABS: MANUAL DIFF FLAG NO
[2025-03-04 16:02] LABS: Hematocrit 34.1 % (37.0-47.0); Hemoglobin 11.1 g/dl (12.0-16.0); Imm Gran Abs Auto 0.05 X10*3/uL (0.00-0.03); Imm Gran Pct Auto 0.5 % (0.0-0.4); Lymphocytes Absolute Auto 3.5 X10*3/uL (1.2-4.9); Mean Corpuscular HGB Conc 32.6 g/dl (31.0-35.0); Mean Corpuscular Hemoglobin 29.7 pg (27.0-33.0); Mean Corpuscular Volume 91.2 fL (80.0-98.0); NRBC Abs Auto 0.000 X10*3/uL (0.0-0.012); NRBC Pct Auto 0.0 /100WBC (0.0-0.2); Platelet Count 252 X10*3/uL (160-400); Red Blood Count 3.74 X10*6/uL (4.20-5.50); White Blood Count 9.5 X10*3/uL (4.8-10.8)
--- OUTSIDE RECORDS SUMMARY | 2025-03-04 16:22 | XMS_ITS | Encounter Summary ---
Author Organization [facility] Address [address] [facility] [address] [place] [address] Phone Care Team Providers Care Enrollment Processor Name Role Phone Andi Burns MD Primary Care Provider + Andi Burns MD Primary Care Provider + Encounter Details Date Type Department Care Team (Latest Contact Info) Description 06/09/2020 Transcribe Orders Virtual Department [address] [place] [address] Surinder Magdaleno MD [address] [facility] [address] [place] [address] Encounter for laboratory testing for COVID-19 virus [...] PATIENT DID NOT ARRIVE FOR SCHEDULED TESTING. [facility] Comment:PROVIDER TO RESCHEDU LE NECESSARY. Symptomatic? NO [facility] Other 06/21/2020 7:53 AM EST 06/21/2020 8:00 PM EST us Surinder Magdaleno MD BODY FLUIDS AND STOOLS O RDERABLES Final Result [facility] [address] [place] [address] documented in this encounter Visit Diagnoses Diagnosis Encounter for laboratory testing for COVID-19 virus- Primary documented in this encounter Care Teams Enrollment Processor Relationship Specialty Start Date End Date Andi Burns MD [address] [place] [address] PCP - General Internal Medicine 03/03/20 03/16/22 Andi Burns MD [address] [place] [address] PCP - General Internal Medicine 03/17/22 documented as of this encounter Additional Source Comments The information contained in this document represents components of the legal health record. It is not the complete legal health record.[facility]
--- OUTSIDE RECORDS SUMMARY | 2025-03-04 16:22 | XMS_ITS | Encounter Summary ---
Author Organization [facility] Address [address] [facility] [address] [place] [address] Phone Care Team Providers Care Speeder Frame Tender Name Role Phone Pcp, Unknown Primary Care Provider Andi Mendoza MD Primary Care Provider + Andi Burns MD Primary Care Provider + Encounter Details Date Type Department Care Team (Latest Contact Info) Description 02/11/2020 Transcribe Orders Virtual Department [address] [place] [address] Surinder Magdaleno MD [address] [facility] [address] [place] [address] Encounter for laboratory testing for COVID-19 virus [...] 2:48 PM EDT) Specimen Source 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 SWAB (PRODUCE TEAM MEMBER) [facility] COVID Testing Status Sent to [facility] Micro Lab [facility] Other 02/13/2020 2:48 PM EDT 02/13/2020 3:18 PM EDT us Surinder Magdaleno MD BODY FLUIDS AND STOOLS O RDERABLES Final Result [facility] [address] [place] [address] documented in this encounter Visit Diagnoses Diagnosis Encounter for laboratory testing for COVID-19 virus- Primary documented in this encounter Additional Health Concerns Infection Onset Date Last Indicated Resolved Time CoV-Exposed Comment:Recent close contact 03/02/2020 03/02/2020 03/16/2020 1:23 AM EDT documented as of this encounter Care Teams Speeder Frame Tender Relationship Specialty Start Date End Date Pcp, Unknown PCP - General 12/15/19 03/02/20 Andi Burns MD [address] [place] [address] PCP - General Internal Medicine 03/03/20 03/16/22 Andi Burns MD [address] [place] [address] PCP - General Internal Medicine 03/17/22 documented as of this encounter Additional Source Comments The information contained in this document represents components of the legal health record. It is not the complete legal health record.[facility]
--- OUTSIDE RECORDS SUMMARY | 2025-03-04 16:22 | XMS_ITS | Clinical Summary ---
Author Organization [facility] Address [address] [place] [address] Phone Care Team Providers Care Ornamental Metal Erector Apprentice Name Role Phone Andi Burns MD Primary [...] by mouth daily for 360 days. 4 Active metFORMIN (GLUCOPHAGE) 1,000 mg tablet Take [...] on neck and head CTA done at [facility] May 2023. She has chronic history of headaches, I reviewed multiple head CTs spanning 2155-0227 at [facility], which were done for headaches, they did not have any acute findings or aneurysms noted. 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 She also had brain MRI at that ED visit with no acute intracranial pathology. We called [facility] to request imaging report and CD [...] Type 2 diabetes mellitus wit h cataract ([facility] V24, [facility] V28) 06/30/2016 Cataract 06/30/2016 Proteinuria 06/28/2016 DM (diabetes mellitus), type 2 with renal complications ([facility] V24, [facility] V28) 06/28/2016 Diabetic neuropathy ([facility] V24, [facility] V28) 0 06/28/2016 Onychomycosis 08/06/2015 Diabetes mellitus type 2 wit h neurological manifestations ([facility] V24, [facility] V28) 08/06/2015 Hyperlipidemia 07/15/2015 Graves disease 07/15/2015 Overview (04/30/2024): S/P total thyroidectomy Essential hypertension 07/15/2015 Immunizations Immunization Administration Dates Next Due Influenza Quadravalent, MDCK [...] uncontrolled, with neuropathy 08/06/2015 DX:Type 2 diabetes tamarai sandy, uncontrolled, with neuropathy Onychomycosis 08/06/2015 DX:Onychomycosis DM (diabetes mellitus), type 2 with renal complications ([facility] V24, [facility] V28) 06/28/2016 DX:DM (diabetes mellitus), t ype 2 with renal complications ([facility]) Proteinuria 06/28/2016 DX:Proteinuria Diabetic neuropathy ([facility] V24, [facility] V28) 06/28/2016 DX:Diabetic neuropathy (HCC) Cataract 06/30/2016 DX:Cataract Type 2 diabetes mellitus wit h cataract ([facility] V24, [facility] V28) 06/30/2016 DX:Type 2 diabetes mellitus with cataract (HCC) Hyperlipidemia 07/15/2015 DX:Hyperlipidemi a Diabetes mellitus type 2 wit h neurological manifestations ([facility] V24, [facility] V28) 08/06/2015 DX:Diabetes mellitus type 2 with [...] Care Team (Late st Contact Info) Description 09/02/2025 2:00 PM EDT Office Visit Nephrology [id number] [place] [phone] Mao Duron MD [address] [place] [address] Health Maintenance Due Date Last Done Comments [...] (2 - Td or Tdap) 04/23/2030 04/23/2020 RSV Immunization Adult Patients (1 - 1-dose 75+ series) 2041 Hepatitis C Screening Completed 11/01/2017 HIB Vaccines [...] Results * Annual BMP Blood Test (09/18/2023) Pathologist [facility] Annual BMP Blood Test Abstracted Result [facility] Provider HEALTH MAINTENANCE Final Result * (ABNORMAL) Hemoglobin A1c (09/18/2023) Pathologist [facility] Hemoglobin A1C 9.3(A) <=6.5 % Blood Venous blood specimen / Unknown [facility] Provider LAB BLOOD ORDERABLES Arielle l Result * (ABNORMAL) Lipid panel (09/18/2023) Pathologist [facility] LDL/HDL Ratio 4 0 - 4 Triglycerides 282(A) 0 - 150 mg/dL Cholesterol 173 0 - 200 mg/dL HDL 45 >=40 mg/dL LDL Cholesterol 72 0 - 100 mg/dL Blood Venous blood specimen / Unknown us Historical Provider LAB BLOOD ORDERABLES Arielle l Result * Urine Albumin Creatinine Ratio (09/17/2023) Urine Albumin Creatinine Ratio Abstracted Result [facility] Historical Provider HEALTH MAINTENANCE Final Result * Cervical Cancer Screening: HPV (03/23/2022) Cervical Cancer Screening: HPV Abstracted, Not detected Result [facility] Provider [facility] Final Result * SCREENING MAMMOGRAPHY BI 2-VIEW [...] % Breast cancer risk category Low (<15%) Result [facility] Andi Burns MD IMG XR PROCEDURES Final Result * Hepatitis C Screening (11/01/2017) Hepatitis C Screening Abstracted Historical Provider HEALTH MAINTENANCE Final Result * Colonoscopy (05/25/2017) Colonoscopy Abstracted, Normal Anatomical Region Laterality Modality Other Historical Provider HEALTH MAINTENANCE Final Result from Last 3 Months or Most Recently Relevant to Health Maintenance [place] [id number] Care Teams Ornamental Metal Erector Apprentice Relationship Specialty Start Date End Date Andi Burns MD [address] [place] [address] PCP - General Internal Medicine 04/18/24
--- OUTSIDE RECORDS SUMMARY | 2025-03-04 16:22 | XMS_ITS | Encounter Summary ---
Author Organization [facility] Address [address] [place] [address] Phone Care Team Providers Care Sociology Professor Name Role Phone Pcp, Unknown Primary Care Provider Andi Mendoza MD Primary Care Provider + Andi Burns MD Primary Care Provider + Encounter Details Date Type Department Care Team (Latest Contact Info) Description 03/02/2020 Transcribe Orders Virtual Department [address] [place] [address] Surinder Magdaleno MD 8 [facility] [address] [place] [address] Encounter for laboratory testing for COVID-19 virus [...] 4:16 PM EDT) Specimen Source 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 SWAB (MACHINE OPERATOR) [facility] COVID Testing Status Sent to [facility] Micro Lab [facility] Other 03/07/2020 4:16 PM EDT 03/07/2020 5:43 PM EDT us Surinder Magdaleno MD BODY FLUIDS AND STOOLS O RDERABLES Final Result [facility] [address] [place] [address] documented in this encounter Visit Diagnoses Diagnosis Encounter for laboratory testing for COVID-19 virus- Primary documented in this encounter Additional Health Concerns Infection Onset Date Last Indicated Resolved Time CoV-Exposed Comment:Recent close contact 03/02/2020 03/02/2020 03/16/2020 1:23 AM EDT documented as of this encounter Care Teams Sociology Professor Relationship Specialty Start Date End Date Pcp, Unknown PCP - General 12/15/19 03/02/20 Andi Burns MD [address] [place] [address] PCP - General Internal Medicine 03/03/20 03/16/22 Andi Burns MD [address] [place] [address] PCP - General Internal Medicine 03/17/22 documented as of this encounter Additional Source Comments The information contained in this document represents components of the legal health record. It is not the complete legal health record.[facility]
--- OUTSIDE RECORDS SUMMARY | 2025-03-04 16:22 | XMS_ITS | Clinical Summary ---
Author Organization [facility] Address [address] [address] Phone Care Team Providers Care Dispatcher Service Or Work Name Role Phone Andi Burns MD Primary [...] LEVEL 03/17/2023 03/17/2022 POTASSIUM LEVEL 03/17/2023 03/17/2022 INFLUENZA VACCINE (#1) 2025 , 04/23/2020, 05/08/2012 COVID-19 VACCINE ( - 2024-2 6 season) 2025 06/17/2021, 12/28/2020, 11/30/2020 LIPID PANEL 04/21/2025 04/21/2020 [...] EDT) SODIUM 141 133 - 146 mmol/L [facility] CHLORIDE 100 96 - 108 mmol/L [facility] POTASSIUM 4.8 3.3 - 5.1 mmol/L [facility] CO2 28 21 - 35 mmol/L [facility] BUN 23(H) 6 - 19 mg/dL [facility] CREATININE 0.90 0.5 - 1.5 mg/dL [facility] GLUCOSE 188(H) 70 - 99 mg/dL [facility] CALCIUM 9.4 8.4 - 10.3 mg/dL [facility] EGFR 75 >59 mL/min/1.7 3m2 [facility] Comment:Estimated glomerular filtration rate calculated using the CKD-EPI refit equation. ANION GAP 18 10 - 20 mmol/L [facility] Blood 03/17/2022 7:15 AM EDT 03/17/2022 7:22 AM EDT Anita David MD LAB BLOOD ORDERABLES Final Result [facility] [address] [place] [address] from Last 3 Months or Most Recently Relevant to Health Maintenance Insurance [facility] PPO EPO [facility] PPO EPO [facility] PPO EPO [facility] PPO [facility]PO [facility] PPO EPO [facility] PPO EPO [facility] PPO EPO [facility] PPO EPO [facility] PPO EPO Care Teams Dispatcher Service Or Work Relationship Specialty Start Date End Date Andi Burns MD [address] [place] [address] PCP - General Internal Medicine 03/17/22 Additional Source Comments The information contained in this document represents components of the legal health record. It is not the complete legal health record.[facility]
[2025-03-04 16:56] LABS: Alanine Aminotransferase 26 U/L (0-31); Albumin Level 4.5 g/dL (3.5-5.0); Anion Gap 14 (12-20); Aspartate Amino Transferase 35 U/L (5-31); Blood Urea Nitrogen 38 mg/dL (9-16); Calcium 8.9 mg/dL (8.4-10.2); Carbon Dioxide 22 mmol/L (22-29); Chloride 112 mmol/L (96-108); Cholesterol 190 mg/dL (<200); Estimated Glomerular Filt Rate 39; HDL Cholesterol 32 mg/dL (>40); Potassium 4.7 mmol/L (3.3-5.1); Sodium 143 mmol/L (135-145); Total Protein 7.1 g/dL (6.5-8.0); Triglycerides 617 mg/dL (<150)
[2025-03-04 17:03] LABS: Alkaline Phosphatase 94 U/L (39-117)
[2025-03-04 17:07] LABS: Free T4 (Free Thyroxine) 0.95 ng/dL (0.71-1.85)
[2025-03-04 17:18] LABS: Folate 13.3 ng/mL (> or = 4.0); Vitamin B12 419 pg/mL (200-900)
== END 2025-03-04 15:35 | disposition home or self-care (01) ==
LOC: HO.LAB 15:34
DX: Z00.00 Encounter for general adult medical examination without abnormal findings (principal); Z13.21 Encounter for screening for nutritional disorder; Z13.29 Encounter for screening for other suspected endocrine disorder; E11.9 Type 2 diabetes mellitus without complications; E78.00 Pure hypercholesterolemia, unspecified; E03.9 Hypothyroidism, unspecified
CPT/HCPCS: 36415; 80053; 80061; 82306; 82607; 82746; 84439; 84443; 85025

== ENCOUNTER 2025-03-06 | Outpatient (REF) | payer OTHER, SELFPAY ==
[2025-03-19 15:41] LABS: Appearance Urine Clear; Glucose Urine UA Negative (Negative); PH 5.5 (5.0-9.0)
[2025-03-19 15:42] LABS: Specific Gravity - Urine 1.025 (1.005-1.025)
[2025-03-19 15:43] LABS: Microalbum/Creatinine Ratio Ur 45.4 ug/mg cr (<30)
--- OUTSIDE RECORDS SUMMARY | 2025-03-19 19:18 | XMS_ITS | Clinical Summary ---
Author Organization [facility] Address [address] [address] Phone Care Team Providers Care Firer Watertender Name Role Phone Andi Burns MD Primary [...] (18-6 5 YEARS) 1984 PAP SMEAR 1987 MAMMOGRAM 2006 COLOGUARD 2011 COLONOSCOPY 2011 COLORECTAL [...] EDT) SODIUM 141 133 - 146 mmol/L [facility] CHLORIDE 100 96 - 108 mmol/L [facility] POTASSIUM 4.8 3.3 - 5.1 mmol/L [facility] CO2 28 21 - 35 mmol/L [facility] BUN 23(H) 6 - 19 mg/dL [facility] CREATININE 0.90 0.5 - 1.5 mg/dL [facility] GLUCOSE 188(H) 70 - 99 mg/dL [facility] CALCIUM 9.4 8.4 - 10.3 mg/dL [facility] EGFR 75 >59 mL/min/1.7 3m2 [facility] Comment:Estimated glomerular filtration rate calculated using the CKD-EPI refit equation. ANION GAP 18 10 - 20 mmol/L [facility] Blood 03/17/2022 7:15 AM EDT 03/17/2022 7:22 AM EDT Anita David MD LAB BLOOD ORDERABLES Final Result [address] [address] from Last 3 Months or Most Recently Relevant to Health Maintenance Insurance [facility] PPO EPO [facility] PPO EPO [facility] PPO [facility]PO [facility] PPO EPO [facility] PPO EPO [facility] PPO EPO [facility] PPO EPO [facility] PPO EPO [facility] PPO EPO Care Teams Firer Watertender Relationship Specialty Start Date End Date Andi Burns MD [address] [place] [address] PCP - General Internal Medicine 03/17/22 Additional Source Comments The information contained in this document represents components of the legal health record. It is not the complete legal health record.[facility]
--- OUTSIDE RECORDS SUMMARY | 2025-03-19 19:18 | XMS_ITS | Encounter Summary ---
Author Organization [facility] Address [address] [facility] [address] [place] [address] Phone Care Team Providers Care Pharmacist Intern Name Role Phone Pcp, Unknown Primary Care Provider Andi Mendoza MD Primary Care Provider + Andi Burns MD Primary Care Provider + Encounter Details Date Type Department Care Team (Latest Contact Info) Description 02/11/2020 Transcribe Orders Virtual Department [address] [place] [address] Surinder Magdaleno MD 8 [facility] [address] [place] [address] Encounter for laboratory testing for COVID-19 virus [...] 2:48 PM EDT) Specimen Source 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 SWAB (COST ACCOUNTING CLERK) [facility] COVID Testing Status Sent to [facility] Micro Lab [facility] Other 02/13/2020 2:48 PM EDT 02/13/2020 3:18 PM EDT us Surinder Magdaleno MD BODY FLUIDS AND STOOLS O RDERABLES Final Result [facility] [address] [place] [address] documented in this encounter Visit Diagnoses Diagnosis Encounter for laboratory testing for COVID-19 virus- Primary documented in this encounter Additional Health Concerns Infection Onset Date Last Indicated Resolved Time CoV-Exposed Comment:Recent close contact 03/02/2020 03/02/2020 03/16/2020 1:23 AM EDT documented as of this encounter Care Teams Pharmacist Intern Relationship Specialty Start Date End Date Pcp, Unknown PCP - General 12/15/19 03/02/20 Andi Burns MD [address] [place] [address] PCP - General Internal Medicine 03/03/20 03/16/22 Andi Burns MD [address] [place] [address] PCP - General Internal Medicine 03/17/22 documented as of this encounter Additional Source Comments The information contained in this document represents components of the legal health record. It is not the complete legal health record.[facility]
--- OUTSIDE RECORDS SUMMARY | 2025-03-19 19:18 | XMS_ITS | Encounter Summary ---
Author Organization [facility] Address [address] [facility] [address] [place] [address] Phone Care Team Providers Care Chip Machine Operator Name Role Phone Andi Burns MD Primary Care Provider + Andi Burns MD Primary Care Provider + Encounter Details Date Type Department Care Team (Latest Contact Info) Description 06/09/2020 Transcribe Orders Virtual Department [address] [place] [address] Surinder Magdaleno MD 8 [facility] [address] [place] [address] Encounter for laboratory testing for COVID-19 virus [...] PATIENT DID NOT ARRIVE FOR SCHEDULED TESTING. [facility] Comment:PROVIDER TO RESCHEDU LE NECESSARY. Symptomatic? NO [facility] Other 06/21/2020 7:53 AM EST 06/21/2020 8:00 PM EST us Surinder Magdaleno MD BODY FLUIDS AND STOOLS O RDERABLES Final Result [facility] [address] [place] [address] documented in this encounter Visit Diagnoses Diagnosis Encounter for laboratory testing for COVID-19 virus- Primary documented in this encounter Care Teams Chip Machine Operator Relationship Specialty Start Date End Date Andi Burns MD [address] [place] [address] PCP - General Internal Medicine 03/03/20 03/16/22 Andi Burns MD [address] [place] [address] PCP - General Internal Medicine 03/17/22 documented as of this encounter Additional Source Comments The information contained in this document represents components of the legal health record. It is not the complete legal health record.[facility]
--- OUTSIDE RECORDS SUMMARY | 2025-03-19 19:18 | XMS_ITS | Clinical Summary ---
Author Organization [facility] Address [address] [place] [address] Phone Care Team Providers Care Seaman Officer Name Role Phone Andi Burns MD Primary Care Provider [phone] Allergies No known active allergies Medications atorvastatin [...] on neck and head CTA done at [facility] May 2023. She has chronic history of headaches, I reviewed multiple head CTs spanning [phone] [place] [facility] which were done for headaches, they did not have any acute findings or aneurysms noted. 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 She also had brain MRI at that ED visit with no acute intracranial pathology. We called [facility] to request imaging report and CD to [...] Type 2 diabetes mellitus wit h cataract ([facility] V24, [facility] V28) 06/30/2016 Cataract 06/30/2016 Proteinuria 06/28/2016 DM (diabetes mellitus), type 2 with renal complications ([facility], [facility] V28) 06/28/2016 Diabetic neuropathy ([facility] V[facility], [facility] V[facility]) 0 06/28/2016 Onychomycosis 08/06/2015 Diabetes mellitus type 2 wit h neurological manifestations ([facility], [facility] V28) 08/06/2015 Hyperlipidemia 07/15/2015 Graves disease 07/15/2015 [...] (diabetes mellitus), type 2 with renal complications ([facility] V[facility], [facility] V28) 06/28/2016 DX:DM (diabetes mellitus), t ype 2 with renal complications ([facility]) Proteinuria 06/28/2016 DX:Proteinuria Diabetic neuropathy ([facility] V[facility], [facility] V28) 06/28/2016 DX:Diabetic neuropathy (HCC) Cataract 06/30/2016 DX:Cataract Type 2 diabetes mellitus wit h cataract ([facility] V24, [facility] V28) 06/30/2016 DX:Type 2 diabetes mellitus with cataract (HCC) Hyperlipidemia 07/15/2015 DX:Hyperlipidemi a Diabetes mellitus type 2 wit h neurological manifestations ([facility] V24, [facility] V28) 08/06/2015 DX:Diabetes mellitus [...] 09/02/2025 2:00 PM EDT Office Visit Nephrology [place] [address] [place] [phone] Mao Duron MD [address] [place] [address] Health Maintenance Due Date Last Done Comments Diabetes: Annual Foot Exam 1976 Diabetes: Annual Retina Eye Exam 1976 Hepatitis B Vaccines (1 of 3 - 19+ 3-dose series) 1985 RSV Immunization Adult Patients (1 - Risk 50-74 years 1-dose series) 2016 Zoster Vaccines (1 of 2) 2016 Pneumococcal [...] * Annual BMP Blood Test (09/18/2023) Pathologist [facility] Annual BMP Blood Test Abstracted [facility] Provider HEALTH MAINTENANCE Final Result * (ABNORMAL) Hemoglobin A1c (09/18/2023) Pathologist [facility] Hemoglobin A1C 9.3(A) <=6.5 % Blood Venous blood specimen / Unknown [facility] Provider LAB BLOOD ORDERABLES Arielle l [...] (09/17/2023) Urine Albumin Creatinine Ratio Abstracted Result [facility] Historical Provider HEALTH MAINTENANCE Final Result * Cervical Cancer Screening: HPV (03/23/2022) Cervical Cancer Screening: HPV Abstracted, Not detected Result [facility] Historical Provider HEALTH MAINTENANCE Final Result * [...] Breast cancer risk category Low (<15%) Result [facility] Andi Burns MD IMG XR PROCEDURES Final Result * Hepatitis C Screening (11/01/2017) Hepatitis C Screening Abstracted Historical Provider HEALTH MAINTENANCE Final Result * Colonoscopy (05/25/2017) Colonoscopy Abstracted, Normal Anatomical Region Laterality Modality Other Historical Provider HEALTH MAINTENANCE Final Result from Last 3 Months or Most Recently Relevant to Health Maintenance [place] [address] [address] [place] [address] Care Teams Seaman Officer Relationship Specialty Start Date End Date Andi Burns MD [address] [place] [address] PCP - General Internal Medicine 04/18/24
--- OUTSIDE RECORDS SUMMARY | 2025-03-19 19:18 | XMS_ITS | Encounter Summary ---
Author Organization [facility] Address [address] [facility] [address] [place] [address] Phone Care Team Providers Care Blocklayer Name Role Phone Pcp, Unknown Primary Care Provider Andi Mendoza MD Primary Care Provider + Andi Burns MD Primary Care Provider + Encounter Details Date Type Department Care Team (Latest Contact Info) Description 03/02/2020 Transcribe Orders Virtual Department [address] [place] [address] Surinder Magdaleno MD 8 [facility] [address] [place] [address] Encounter for laboratory testing for COVID-19 virus [...] 4:16 PM EDT) Specimen Source 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 SWAB (WASTEWATER PLANT OPERATOR) [facility] COVID Testing Status Sent to [facility] Other 03/07/2020 4:16 PM EDT 03/07/2020 5:43 PM EDT us Surinder Magdaleno MD BODY FLUIDS AND STOOLS O RDERABLES Final Result [facility] [address] [place] [address] documented in this encounter Visit Diagnoses Diagnosis Encounter for laboratory testing for COVID-19 virus- Primary documented in this encounter Additional Health Concerns Infection Onset Date Last Indicated Resolved Time CoV-Exposed Comment:Recent close contact 03/02/2020 03/02/2020 03/16/2020 1:23 AM EDT documented as of this encounter Care Teams Blocklayer Relationship Specialty Start Date End Date Pcp, Unknown PCP - General 12/15/19 03/02/20 Andi Burns MD [address] [place] [address] PCP - General Internal Medicine 03/03/20 03/16/22 Andi Burns MD [address] [place] [address] PCP - General Internal Medicine 03/17/22 documented as of this encounter Additional Source Comments The information contained in this document represents components of the legal health record. It is not the complete legal health record.[facility]
--- OUTSIDE RECORDS SUMMARY | 2025-03-19 19:18 | XMS_ITS | Patient Health Record ---
Author Organization [facility] Address [address] [place] [address] Care Team Providers Care Supervisor Extrusion Name Role Phone RuthyLydia scott Primary Care Provider Unavailab Carlos Enrique Lazo Unavailable [phone] Allergies No Known Allergies Results Component Value [...] Problem Acquired hammer toe of right foot (837912951749789 5) Other hammer toe(s) (acquired), right foot (M20.41) Active confirmed Problem Acquired hammer toe of left foot (865879044787305 3) Other hammer toe(s) (acquired), left foot (M20.42) Active confirmed Problem Type II diabetes mellitus without complication (909188397) Type 2 diabetes mellitus without complication (E11.9) Active confirmed Vital Signs Blood pressure diastolic 90 mm Hg 02/12/2025 Height 5ft 6in in 02/12/2025 Blood pressure systolic 145 mm Hg 02/12/2025 Weight 224 lbs 02/12/2025 BMI 36.15 kg/m2 02/12/2025 Procedures Procedure Date Ordered Date Performed Result Body Sit e 96225-VBIRHWK NAIL, 6 OR MORE 11/12/2024 N/A 16410-PIYSDSK NAIL, 6 OR MORE 02/12/2025 N/A Encounters Encounter Location Date Provider Diagnosis [facility] [place] [address] [place] [address] 11/12/2024 Carlos Enriquesid EscuderoCrista Pain in right toe(s) M79.674 ; Tinea unguium B35.1 ; Pain in left toe(s) M79.675 ; Type 2 diabetes mellitus without complication E11.9 ; Other hammer toe(s) (acquired), right foot M20.41 and Other hammer toe(s) (acquired), left foot M20.42 [facility] [place] [address] [address] 02/12/2025 Carlos Enrique Tobin Pain in right toe(s) M79.674 ; Tinea unguium B35.1 ; Pain in left toe(s) M79.675 ; Type 2 diabetes mellitus without complication E11.9 ; Other hammer toe(s) (acquired), right foot M20.41 and Other hammer toe(s) (acquired), left foot M20.42 [facility] [place] [address] [place] [address] 08/19/2024 Carlos Enrique Tobin Assessments Encounter Date [...] Treatment Pending Test Test Name Order Date 62532-[id number] NAIL, 6 OR MORE 10/11/2012 20263-FSEOAQG NAIL, 6 OR MORE 12/31/2012 67508-VFUJZCD NAIL, 6 OR MORE 11/12/2024 14398-VCEYMGY NAIL, 6 OR MORE 02/12/2025 23058-Cjahhkzz Plate 10/11/2012 11323-VNGA SKIN LESIONS, 2 TO 4 01/01/20 13 Next Appt Details Provider Name:Carlos Enrique Tobin , 05/25/2025 04:00:00 PM, [address] [facility], [facility] [address], [place], [address], Insurance Providers Payer Name Payer Address Payer Phone Subscriber Number Group Number Insured Name Patient Relationship to Insured Coverage Start Date Coverage End Date Blue Benefits [address] [address] [place] [address] [id number] Lisette Ortega Self - patient is the insured Medical (General) History Medical History History ICD Code diabetic thyroid disorder hypertension measles Anxiety Back,Hip,and Knee pain Cataracts High Blood Pressure Mumps Chicken pox Hypercholesterolemia Surgical History Surgery Date(Month/Year) eye procedure 10/16/24 tubal ligation 1989 kidney stones 2017 Thyroid removal Surgery 2019 Hospitalization History Reason Date(Month/Year) [facility] for high blood pressure 05/2012
== END 2025-03-06 00:01 | disposition home or self-care (01) ==
LOC: HO.LNP
DX: E11.42 Type 2 diabetes mellitus with diabetic polyneuropathy (principal); Z79.4 Long term (current) use of insulin
CPT/HCPCS: 81003; 82043; 82570

== ENCOUNTER 2025-03-09 06:44 | Outpatient (REF) | payer OTHER, SELFPAY ==
--- OUTSIDE RECORDS SUMMARY | 2025-03-09 06:59 | XMS_ITS | Clinical Summary ---
Author Organization [facility] Address [address] [place] [address] Phone Care Team Providers Care Technical Marketing Consultant Name Role Phone Andi Burns MD Primary Care Provider [phone] Allergies No known active allergies Medications atorvastatin [...] on neck and head CTA done at [facility] May 2023. She has chronic history of headaches, I reviewed multiple head CTs spanning 9641-3088 at [facility], which were done for headaches, they did not have any acute findings or aneurysms noted. Patient went to [facility] emergency room May 2023 and part of [...] May 2023 head and neck CTA from [facility] that showed 2.5 mm right MCA bifurcation aneurysm, would need 1 year follow-up. She also had brain MRI at that ED visit with no acute intracranial pathology. We called [facility] to request imaging report and CD [...] Type 2 diabetes mellitus wit h cataract ([facility]/HCC V24, [facility] V28) 06/30/2016 Cataract 06/30/2016 Proteinuria 06/28/2016 DM (diabetes mellitus), type 2 with renal complications ([facility] V24, [facility] V28) 06/28/2016 Diabetic neuropathy ([facility] V24, [facility] V28) 0 06/28/2016 Onychomycosis 08/06/2015 Diabetes mellitus type 2 wit h neurological manifestations ([facility] V24, [facility] V28) 08/06/2015 Hyperlipidemia 07/15/2015 Graves disease 07/15/2015 [...] (diabetes mellitus), type 2 with renal complications ([facility] V24, [facility] V28) 06/28/2016 DX:DM (diabetes mellitus), t ype 2 with renal complications ([facility]) Proteinuria 06/28/2016 DX:Proteinuria Diabetic neuropathy ([facility] V24, [facility] V28) 06/28/2016 DX:Diabetic neuropathy (HCC) Cataract 06/30/2016 DX:Cataract Type 2 diabetes mellitus wit h cataract ([facility] V24, [facility] V28) 06/30/2016 DX:Type 2 diabetes mellitus with cataract (HCC) Hyperlipidemia 07/15/2015 DX:Hyperlipidemi a Diabetes mellitus type 2 wit h neurological manifestations ([facility] V24, [facility] V28) 08/06/2015 DX:Diabetes mellitus type 2 with [...] 09/02/2025 2:00 PM EDT Office Visit Nephrology [address] [place] [phone] Mao Duron MD [address] [place] [address] Health Maintenance Due Date Last Done Comments [...] * Annual BMP Blood Test (09/18/2023) Pathologist [facility] Annual BMP Blood Test Abstracted Result [facility] Provider HEALTH MAINTENANCE Final Result * (ABNORMAL) Hemoglobin A1c (09/18/2023) Pathologist [facility] Hemoglobin A1C 9.3(A) <=6.5 % Blood Venous blood specimen / Unknown [facility] Provider LAB BLOOD ORDERABLES Arielle l Result * (ABNORMAL) Lipid panel (09/18/2023) Pathologist [facility] LDL/HDL Ratio 4 0 - 4 Triglycerides 282(A) 0 - 150 mg/dL Cholesterol 173 0 - 200 mg/dL HDL 45 >=40 mg/dL LDL Cholesterol 72 0 - 100 mg/dL Blood Venous blood specimen / Unknown us Historical Provider LAB BLOOD ORDERABLES Arielle l Result * Urine Albumin Creatinine Ratio (09/17/2023) Urine Albumin Creatinine Ratio Abstracted Result [facility] Historical Provider HEALTH MAINTENANCE Final Result * Cervical Cancer Screening: HPV (03/23/2022) Cervical Cancer Screening: HPV Abstracted, Not detected Result [facility] Provider [facility] Final Result * SCREENING MAMMOGRAPHY BI 2-VIEW [...] Breast cancer risk category Low (<15%) Result [facility] Andi Burns MD IMG XR PROCEDURES Final Result * Hepatitis C Screening (11/01/2017) Hepatitis C Screening Abstracted Historical Provider HEALTH MAINTENANCE Final Result * Colonoscopy (05/25/2017) Colonoscopy Abstracted, Normal Anatomical Region Laterality Modality Other Historical Provider HEALTH MAINTENANCE Final Result from Last 3 Months or Most Recently Relevant to Health Maintenance [place] [address] Care Teams Technical Marketing Consultant Relationship Specialty Start Date End Date Andi Burns MD [address] [place] [address] PCP - General Internal Medicine 04/18/24
--- OUTSIDE RECORDS SUMMARY | 2025-03-09 06:59 | XMS_ITS | Encounter Summary ---
Author Organization [facility] Address [address] [place] [address] Phone Care Team Providers Care Manager Culture Name Role Phone Pcp, Unknown Primary Care Provider Andi Mendoza MD Primary Care Provider + Andi Burns MD Primary Care Provider + Encounter Details Date Type Department Care Team (Latest Contact Info) Description 03/02/2020 Transcribe Orders Virtual Department [address] [place] [address] Surinder Magdaleno MD [address] [facility] [address] [place] [address] Encounter for laboratory testing for COVID-19 virus [...] 4:16 PM EDT) Specimen Source 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 SWAB (PHOTOENGRAVING PRINTER) [facility] COVID Testing Status Sent to [facility] [place] [place] Micro Lab [facility] Other 03/07/2020 4:16 PM EDT 03/07/2020 5:43 PM EDT us Surinder Magdaleno MD BODY FLUIDS AND STOOLS O RDERABLES Final Result [facility] [address] [place] [address] documented in this encounter Visit Diagnoses Diagnosis Encounter for laboratory testing for COVID-19 virus- Primary documented in this encounter Additional Health Concerns Infection Onset Date Last Indicated Resolved Time CoV-Exposed Comment:Recent close contact 03/02/2020 03/02/2020 03/16/2020 1:23 AM EDT documented as of this encounter Care Teams Manager Culture Relationship Specialty Start Date End Date Pcp, Unknown PCP - General 12/15/19 03/02/20 Andi Burns MD [address] [place] [id number] PCP - General Internal Medicine 03/03/20 03/16/22 Andi Burns MD [address] [place] [phone] PCP - General Internal Medicine 03/17/22 documented as of this encounter Additional Source Comments The information contained in this document represents components of the legal health record. It is not the complete legal health record.[facility]
--- OUTSIDE RECORDS SUMMARY | 2025-03-09 06:59 | XMS_ITS | Encounter Summary ---
Author Organization [facility] Address [address] [place] [address] Phone Care Team Providers Care Talent Scout Name Role Phone Andi Burns MD Primary Care Provider + Andi Burns MD Primary Care Provider + Encounter Details Date Type Department Care Team (Latest Contact Info) Description 06/09/2020 Transcribe Orders Virtual Department [address] [place] [address] Surinder Magdaleno MD [address] [facility] [address] [place] [address] Encounter for laboratory testing for COVID-19 virus [...] PATIENT DID NOT ARRIVE FOR SCHEDULED TESTING. [facility] Comment:PROVIDER TO RESCHEDU LE NECESSARY. Symptomatic? NO [facility] Other 06/21/2020 7:53 AM EST 06/21/2020 8:00 PM EST us Surinder Magdaleno MD BODY FLUIDS AND STOOLS O RDERABLES Final Result [facility] [address] [place] [address] documented in this encounter Visit Diagnoses Diagnosis Encounter for laboratory testing for COVID-19 virus- Primary documented in this encounter Care Teams Talent Scout Relationship Specialty Start Date End Date Andi Burns MD [address] [place] [phone] PCP - General Internal Medicine 03/03/20 03/16/22 Andi Burns MD [address] [place] [phone] PCP - General Internal Medicine 03/17/22 documented as of this encounter Additional Source Comments The information contained in this document represents components of the legal health record. It is not the complete legal health record.[facility]
--- OUTSIDE RECORDS SUMMARY | 2025-03-09 06:59 | XMS_ITS | Clinical Summary ---
Author Organization [facility] Address [address] [address] Phone Care Team Providers Care Websphere Commerce Developer Name Role Phone Andi Burns MD Primary [...] EDT) SODIUM 141 133 - 146 mmol/L [facility] CHLORIDE 100 96 - 108 mmol/L [facility] POTASSIUM 4.8 3.3 - 5.1 mmol/L [facility] CO2 28 21 - 35 mmol/L [facility] BUN 23(H) 6 - 19 mg/dL [facility] CREATININE 0.90 0.5 - 1.5 mg/dL [facility] GLUCOSE 188(H) 70 - 99 mg/dL [facility] CALCIUM 9.4 8.4 - 10.3 mg/dL [facility] EGFR 75 >59 mL/min/1.7 3m2 [facility] Comment:Estimated glomerular filtration rate calculated using the CKD-EPI refit equation. ANION GAP 18 10 - 20 mmol/L [facility] Blood 03/17/2022 7:15 AM EDT 03/17/2022 7:22 AM EDT Anita David MD LAB BLOOD ORDERABLES Final Result [facility] [address] [place] [address] from Last 3 Months or Most Recently Relevant to Health Maintenance Insurance [facility]PO EPO [facility] PPO EPO [facility] PPO EPO [facility] PPO EPO [facility] PPO EPO [facility] PPO [facility]PO [facility] PPO EPO [facility] PPO EPO [facility] PPO EPO Care Teams Websphere Commerce Developer Relationship Specialty Start Date End Date Andi Burns MD [address] [place] [id number] PCP - General Internal Medicine 03/17/22 Additional Source Comments The information contained in this document represents components of the legal health record. It is not the complete legal health record.[facility]
--- OUTSIDE RECORDS SUMMARY | 2025-03-09 06:59 | XMS_ITS | Patient Health Record ---
Author Organization [facility] Address [address] [place] [address] Care Team Providers Care Coupon Clerk Name Role Phone RuthyLydia scott Primary Care Provider Unavailab Carlos Enrique Lazo Unavailable [phone] Allergies No Known Allergies Results Component Value Reference Range Notes HEMOGLOBIN A1C (GLYCOHEMOGLO BIN) Reviewed date:11/12/2024 04:10:02 PM Interpretation: Performing Lab: Notes/Report: HEMOGLOBIN A1C % (HH) 9.3 HEMOGLOBIN A1C (GLYCOHEMOGLO BIN) Reviewed date:02/12/2025 04:03:14 PM Interpretation: Performing Lab: Notes/Report: HEMOGLOBIN A1C % (HH) 8.5 Reason For Referral No Information Medications Medication SIG (Take, Route, Frequency, Duration) Notes Start Date End Date Status Levothyroxine Sodium 25 MCG 1 tablet in the morning on an empty stomach Orally Once a day Active Losartan Potassium A ctive traZODone HCl 50 MG 1 tablet at bedtime as needed Orally Once a day Active hydrALAZINE HCl 25 MG 1 tablet with food Orally Twice a day Active Extra Depth Orthopedic Shoes (1 Pair) with Customized Heat Molded Multidensity Innersoles (3 Pair) as directed Dx: NIDDM (E11.9), Hammertoe Foot Deformity (M20.41,M20.42), Preulcerative Skin Lesion(s) (L85.1) Active methIMAzole 10 MG 1 tablet Orally Once a day; Duration: 30 day(s) Not-Herman ing Lantus Active Potassium Not-Taking Insulin 25/50 units twice a day Not-Taking Metoprolol Succinate ER 10 MG 1 tablet Orally Once a day; Duration: 30 day(s) Not-Herman ing metFORMIN HCl 1000 MG 1 tablet with meal s Orally Twice a day; Duration: 30 day(s) Active Lisinopril 30 MG 1 tablet Orally Once a day; Duration: 30 day(s) Not-Herman ing Atorvastatin Calcium 20 MG 1 tablet Orally Once a day Active Immunizations Vaccine Route Administration Date Status Comme nts Influenza Unknown 03/04/2024 Administered Social History Tobacco Use: Social History Observation Description Date Details (start date - stop date) Never Smoker NA - NA Tobacco use other than smoking: Question Answer Notes Are you an other tobacco user? No Tobacco Control (Standard) Question Answer Notes Tobacco use: Nonsmoker Additional Findings: Tobacco non-user Current no nsmoker AUDIT-C (Standard) Question Answer Notes Did you have a drink containing alcohol in the p ast year? No Points 0 Interpretation Negative Problems Problem Type SNOMED Code ICD Code Onset Dates Problem Status W/U Status Risk Notes Problem Acquired hammer toe of right foot (905513458701482 5) Other hammer toe(s) (acquired), right foot (M20.41) Active confirmed Problem Acquired hammer toe of left foot (321027853419468 3) Other hammer toe(s) (acquired), left foot (M20.42) Active confirmed Problem Type II diabetes mellitus without complication (747980512) Type 2 diabetes mellitus without complication (E11.9) Active confirmed Vital Signs Blood pressure diastolic 90 mm Hg 02/12/2025 Height 5ft 6in in 02/12/2025 Blood pressure systolic 145 mm Hg 02/12/2025 Weight 224 lbs 02/12/2025 BMI 36.15 kg/m2 02/12/2025 Procedures Procedure Date Ordered Date Performed Result Body Sit e 49880-KIBNJAQ NAIL, 6 OR MORE 11/12/2024 N/A [id number] NAIL, 6 OR MORE 02/12/2025 N/A Encounters Encounter Location Date Provider Diagnosis [facility] [address] [place] [id number] 11/12/2024 Carlos Enriquesid EscuderoCrista Pain in right toe(s) M79.674 ; Tinea unguium B35.1 ; Pain in left toe(s) M79.675 ; Type 2 diabetes mellitus without complication E11.9 ; Other hammer toe(s) (acquired), right foot M20.41 and Other hammer toe(s) (acquired), left foot M20.42 [facility] [address] [address] 02/12/2025 Carlos Enrique Tobin Pain in right toe(s) M79.674 ; Tinea unguium B35.1 ; Pain in left toe(s) M79.675 ; Type 2 diabetes mellitus without complication E11.9 ; Other hammer toe(s) (acquired), right foot M20.41 and Other hammer toe(s) (acquired), left foot M20.42 [facility] [place] [address] [place] [address] 08/19/2024 Carlos Enrique Tobin Assessments Encounter Date Diagnosis (ICD Code) Assessment Notes Treatment Notes Treatment Clinical Notes Section Notes 11/12/2024 Pain in right toe(s) (ICD-10 - M79.674) 02/12/2025 Pain in right toe(s) (ICD-10 - M79.674) 02/12/2025 Tinea unguium (ICD-10 - B35.1) 02/12/2025 Pain in left toe(s) (ICD-10 - M79.675) 11/12/2024 Tinea unguium (ICD-10 - B35.1) 11/12/2024 Pain in left toe(s) (ICD-10 - M79.675) 02/12/2025 Type 2 diabetes mellitus without complication (ICD-10 - E11.9) 11/12/2024 Type 2 diabetes mellitus without complication (ICD-10 - E11.9) 02/12/2025 Other hammer toe(s) (acquired), right foot (ICD-10 - M20.41) Patient Educated with: DIABETIC FOOT CARE INSTRUCTIONS.p df (DIABETIC FOOT CARE INSTRUCTIONS.p df) 11/12/2024 Other hammer toe(s) (acquired), right foot (ICD-10 - M20.41) Patient Educated with: DIABETIC FOOT CARE INSTRUCTIONS.p df (DIABETIC FOOT CARE INSTRUCTIONS.p df) 11/12/2024 Other hammer toe(s) (acquired), left foot (ICD-10 - M20.42) 02/12/2025 Other hammer toe(s) (acquired), left foot (ICD-10 - M20.42) Plan Of Treatment Pending Test Test Name Order Date [id number] NAIL, 6 OR MORE 10/11/2012 [id number] NAIL, 6 OR MORE 12/31/2012 [id number] NAIL, 6 OR MORE 11/12/2024 [id number] NAIL, 6 OR MORE 02/12/2025 [id number] Plate 10/11/2012 [id number] SKIN LESIONS, 2 TO 4 01/01/20 13 Next Appt Details Provider Name:Carlos Enrique Tobin , 05/25/2025 04:00:00 PM, [address] [facility], [facility] [address], [place], [address], Insurance Providers Payer Name Payer Address Payer Phone Subscriber Number Group Number Insured Name Patient Relationship to Insured Coverage Start Date Coverage End Date [employer] Benefits [address] [address] [place] [address] [id number] Lisette Ortega Self - patient is the insured Medical (General) History Medical History History ICD Code diabetic thyroid disorder hypertension measles Anxiety Back,Hip,and Knee pain Cataracts High Blood Pressure Mumps Chicken pox Hypercholesterolemia Surgical History Surgery Date(Month/Year) eye procedure 10/16/24 tubal ligation 1989 kidney stones 2017 Thyroid removal Surgery 2019 Hospitalization History Reason Date(Month/Year) [facility] for high blood pressure 05/2012
--- OUTSIDE RECORDS SUMMARY | 2025-03-09 06:59 | XMS_ITS | Encounter Summary ---
Author Organization [facility] Address [address] [place] [address] Phone Care Team Providers Care Pivot End Polisher Name Role Phone Pcp, Unknown Primary Care Provider Andi Mendoza MD Primary Care Provider + Andi Burns MD Primary Care Provider + Encounter Details Date Type Department Care Team (Latest Contact Info) Description 02/11/2020 Transcribe Orders Virtual Department [address] [place] [address] Surinder Magdaleno MD 8 [facility] [address] [place] [address] Encounter for laboratory testing for COVID-19 virus [...] 2:48 PM EDT) Specimen Source 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 SWAB (INTELLECTUAL PROPERTY LAWYER) [facility] COVID Testing Status Sent to [facility] Micro Lab [facility] Other 02/13/2020 2:48 PM EDT 02/13/2020 3:18 PM EDT us Surinder Magdaleno MD BODY FLUIDS AND STOOLS O RDERABLES Final Result [facility] [address] [place] [address] documented in this encounter Visit Diagnoses Diagnosis Encounter for laboratory testing for COVID-19 virus- Primary documented in this encounter Additional Health Concerns Infection Onset Date Last Indicated Resolved Time CoV-Exposed Comment:Recent close contact 03/02/2020 03/02/2020 03/16/2020 1:23 AM EDT documented as of this encounter Care Teams Pivot End Polisher Relationship Specialty Start Date End Date Pcp, Unknown PCP - General 12/15/19 03/02/20 Andi Burns MD [address] [place] [address] PCP - General Internal Medicine 03/03/20 03/16/22 Andi Burns MD [address] [place] [address] PCP - General Internal Medicine 03/17/22 documented as of this encounter Additional Source Comments The information contained in this document represents components of the legal health record. It is not the complete legal health record.[facility]
[2025-03-09 10:45] LABS: Cholesterol 195 mg/dL (<200); HDL Cholesterol 36 mg/dL (>40); Triglycerides 441 mg/dL (<150)
== END 2025-03-09 06:45 | disposition home or self-care (01) ==
LOC: HO.LAB 06:44
DX: E78.00 Pure hypercholesterolemia, unspecified (principal)
CPT/HCPCS: 36415; 80061

== ENCOUNTER 2025-03-10 12:52 | Outpatient (AMB) | payer OTHER, SELFPAY ==
--- NOTE | 2025-03-10 13:00 | A.OFFPC_ITS ---
Vital Signs 03/10/25 13:03 Height 5 ft 7 in Weight 219 lb 2 oz BMI 34.3 BP 120/80 Blood Pressure Location Lt brachial Position Sitting Pulse 85 Pulse Source Pulse Oximeter Temp 97.3 F Temp Source Temporal Artery Scan Pulse Oximetry (%) 94 Oxygen Delivery Method Room Air Intake Visit Reasons: 4 week f/u Intake Note: Patient is here to follow up on DM. Cloth Brushing And Sueding Supervisor Required: No Milieu Coordinator: Not Required per policy Accompanied by: Self / Same As Patient Allergies No Known Allergies (No Known Allergies*) Allergy (Verified 03/10/25 13:13) Medication List - Last Reconciled 03/10/25 by Lydia Kuhn PA-C atorvastatin 20 mg PO DAILY blood sugar diagnostic (Katuah MarketTouch Verio test strips) As directed; TID blood-glucose meter ([employer] Verio Flex Meter) As directed; to check BGL TID blood-glucose sensor (Dexcom G7 Sensor device) As directed blood-glucose,secondary connector armature,cont (Dexcom G7 Outreach Nurse) As directed gabapentin 300 mg PO DAILY hydroxyzine HCl 25 mg PO BID ibuprofen 800 mg PO Q8H PRN insulin glargine (Lantus Solostar U-100 Insulin) 20 units (0.2 mL) subcut QPM lancets ([employer]Touch UltraSoft 2 Lancet) As directed; to check BGL TID levothyroxine 137 mcg PO DAILY losartan 100 mg PO DAILY metformin 1,000 mg PO BID 90 days semaglutide (Ozempic) 0.25 mg (0.368 mL) subcut QWEEK trazodone 50 mg PO .QHS PRN Tobacco use date assessed: 03/10/25 Dental Screening Dental Screen Date: 02/10/25 HPI 4 week f/u HPI Details 59-year-old female with past medical his tory of diabetes, hypertension, hypothyroid, hypercholesterolemia and neuropathy last seen 02/2025 coming in for 1 month follow up. Presenting with diabetes mellitus and hypertriglyceridemia. Reports elevated morning blood glucose levels between 240-250 mg/dL. Currently on metformin 1000 mg twice daily and insulin 40 units daily. Uses a Dexcom device for glucose monitoring, which recently detached. Lab results show significantly elevated triglyceride levels, posing a risk for pancreatitis. Fenofibrate is recommended for management. [facility] Medical History Kidney stone on right side Kidney stone on left side Cervical dysplasia Hypertension Diabetes Surgical History History of carpal tunnel release of both wrists H/O lithotripsy Hx of tubal ligation Family History (Updated 03/10/25 @ 13:00 by ANAYELI Gonzales) Father Diabetes Mother Diabetes HTN (hypertension) Cirrhosis Social History Housing: Apartment Alcohol intake: never Patient Tobacco Use Status: Former Tobacco user Tobacco use type: Cigarette Cigarettes Per Day: 20 Years Smoked: 30 e-Cigarette/Vaping Use: Never Used Second Hand Smoke Exposure: Yes service: No Current occupational status: employed Hearing needs: No Vision needs: No Female Reproductive History Menstrual Age of Menarche: 14 Questionnaire PHQ-9 Over the last 2 weeks, how often have you been bothered by any of the following problems? 1. Little interest or pleasure in doing things: not at all 2. Feeling down, depressed, or hopeless: not at all 3. Trouble falling or staying asleep, or sleeping too much: several days 4. Feeling tired or having little energy: several days 5. Poor appetite or overeating: several days 6. Feeling bad about yourself - or that you are a failure or have let yourself or your family down: not at all 7. Trouble concentrating on things, such as reading the newspaper or watching television: not at all 8. Moving or speaking so slowly that other people could have noticed. Or the opposite - being so fidgety or restless that you have been moving around a lot more than usual: not at all 9. Thoughts that you would be better off or of hurting yourself in some way: not at all Total score: 3 Depression Screening Interpretation: Positive Depression Screening Done: Yes Source: Developed by Drs. Yohannes Rivera, Jocelyn Garcia, Baljinder Markham and colleagues, with an educational rekha from [employer]. Thrive Questionnaire Date Thrive assessed: 02/10/25 I am a: Patient What is your living situation today?: I have a steady place to live Within the past 12 months, did the food you bought not last and you didn't have the money to get more?: Never true Within the past 12 months, did you worry whether your food would run out before you got money to buy more?: Never true Do you have trouble paying for medicines?: I choose not to answer this question Do you have trouble getting transportation to medical appointments?: No Do you have trouble paying your heating and electricity bill?: I choose not to answer this question Do you have trouble taking care of your child, family member or friend?: No Do you have trouble with day-to-day activities such as bathing, preparing meals, shopping, managing finances, etc.?: No Are you currently unemployed and looking for a job?: No Are you interested in more education?: No Please select the resources that you would like help with: None Currently or been in a relationship where the following occur: No concerns reported THRIVE Score: 0 AUDIT C Alcohol Use Questionnaire (AUDIT-C) 1. How often do you have a drink containing alcohol?: Never Total Score: 0 ISMAEL-7 AMB Questionnaire ISMAEL-7 Date ISMAEL - 7 assessed: 02/10/25 Feeling nervous, anxious, or on edge: 0 = Not at all Not being able to stop or control worryin = Not at all Worrying too much about different things: 1 = Several days Trouble relaxin = Several days Being so restless that it is hard to sit still: 0 = Not at all Becoming easily annoyed or irritable: 1 = Several days Feeling afraid as if something awful might happen: 0 = Not at all Total ISMAEL-7 score (0-4 normal; 5-9 mild; 10-14 moderate; 15-21 severe): 3 Source: Developed by Drs. Yohannes Rivera, Jocelyn Garcia, Baljinder Markham and colleagues, with an educational rekha from [employer]. Review of Systems Const Denies body aches, Denies chills, Denies fever(s), Denies headache(s) and Denies poor appetite Eyes Reports no additional complaints ENT Denies dizziness and Denies headache(s) Card Denies chest pain, Denies edema, Denies lightheadedness and Denies dyspnea Resp Denies dyspnea GI Denies abdominal pain, Denies nausea and Denies vomiting Reports no additional complaints Musc Reports no additional complaints and Denies abnormal gait Skin/Breast Reports system reviewed and no additional complaints, except as documented Neuro Denies abnormal gait, Denies dizziness and Denies headache(s) Psych Reports no additional complaints Physical exam (Primary Care) Vital Signs: Last Vital Signs Temp 97.3 F 03/10/25 13:03 Pulse 85 03/10/25 13:03 BP 120/80 03/10/25 13:03 Pulse Ox 94 03/10/25 13:03 Oxygen Delivery Method Room Air 03/10/25 13:03 BMI result Body Mass Index 34.3 Tobacco/Smoking Status: Tobacco use Status Tobacco use date assessed 03/10/25 03/10/25 13:07 Patient Tobacco Use Status Former Tobacco user 03/10/25 13:01 Tobacco use type Cigarette 03/10/25 13:01 e-Cigarette/Vaping Use Never Used 03/10/25 13:07 PHQ-9: PHQ-9 Score PHQ-9: Total score 3 03/10/25 13:13 Depression Screening Interpretation: Positive Thrive Assessment: Date of Thrive Assessment Date Thrive assessed 02/10/25 03/10/25 13:01 Currently or been in a relationship where the following occur: No concerns reported Const General: cooperative, healthy appearing, comfortable and no acute distress Orientation/consciousness: patient oriented x3 HENMT Head: Yes normocephalic Ears: hearing grossly normal bilaterally General nose exam: Normal external nose present Eyes General: appearance normal, both eyes and all related structures Conjunctivae: conjunctivae normal Neck Neck: Yes full ROM and Yes no lymphadenopathy Resp Effort & Inspection: normal respiratory effort Auscultation: clear to auscultation bilaterally, no crackles, no rales, no rhonchi and no wheezes Cardio Rate: regular rate Rhythm: regular rhythm Skin General skin exam: no rashes or lesions noted Neuro General: patient oriented x3 Gait exam (Neuro): Normal gait present Extrem General: Yes normal to inspection, Yes full ROM and No edema Psych Affect: normal affect Attitude: cooperative Insight: Good insight present (Psych) Judgement: Good judgement present (Psych) Coding Level of Care Code Est Pt Level 4 (93364) Diagnoses Primary hypertension I10 Hypertension type: primary hypertension Hypercholesteremia E78.00 Type 2 diabetes mellitus with diabetic polyneuropathy, with long-term current use of insulin E11.42; Z79.4 Diabetes mellitus type: type 2 Diabetes mellitus middle or intermediate school principal insulin use: with group home use Diabetes mellitus complication status: with neurologic complications Diabetes mellitus complication detail: with polyneuropathy Acquired hypothyroidism E03.9 Hypothyroidism type: acquired Neuropathy G62.9 Assessment & Plan Assessment & Plan (1) Hypertension: Code(s): I10 - Essential (primary) hypertension Category: Medical Qualifiers: Hypertension type: primary hypertension Qualified Code(s): I10 - Essential (primary) hypertension Plan: Continue on current blood pressure medication. Avoid salt intake and encourage healthy diet and regular exercise. (2) Hypercholesteremia: Code(s): E78.00 - Pure hypercholesterolemia, unspecified Category: Medical Plan: Avoid foods that are high in cholesterol such as red meat, fried foods, eggs and baked goods. Triglyceride goal of less than 150 and LDL goal of less than 100. Last LDL not able to be calculated due to hypertriglyceridemia. Plan to start on fenofibrate and repeat labs in 1 month. (3) Diabetes: Code(s): E11.9 - Type 2 diabetes mellitus without complications Category: Medical Qualifiers: Diabetes mellitus type: type 2 Diabetes mellitus group home insulin use: with group home use Diabetes mellitus complication status: with neurologic complications Diabetes mellitus complication detail: with polyneuropathy Qualified Code(s): E11.42 - Type 2 diabetes mellitus with diabetic polyneuropathy; Z79.4 - senior living (current) use of insulin Plan: Decrease the amount of carbohydrates such as pasta, bread, rice, and potatoes and limit the amount of sweets. Although fruits are generally healthy they should be eaten in moderation as they are still high in sugar. Hemoglobin A1c goal of less than 7%. She is scheduled to see endocrinology next month. She is on the Lantus at 40 units and was unable to get Ozempic. She was previously on Trulicity and had good benefit with her sugars and prescription for this was sent.\ She will send her Dexcom values through the portal as she does not have her phone today. (4) Hypothyroid: Code(s): E03.9 - Hypothyroidism, unspecified Category: Medical Qualifiers: Hypothyroidism type: acquired Qualified Code(s): E03.9 - Hypothyroidism, unspecified Plan: Last thyroid levels were normal on blood work. There is a potential interaction with fenofibrate and hypothyroid and plan to have repeat labs in 1 month after being on the medication to ensure levels are normal. (5) Neuropathy: Code(s): G62.9 - Polyneuropathy, unspecified Category: Medical Plan: Gabapentin is prescribed for neuropathy management. The patient is instructed to take her own prescribed medication and report any worsening of symptoms. Plan This note was constructed using voice recognition software. While every effort has been made to ensure accuracy and director of grants, still areas may have been included sometimes these areas may affect the content or meeting of the given symptoms. Total time spent caring for the patient today was 30 minutes. This includes time spent before the visit reviewing the chart, time spent during the visit, and time spent after the visit and documentation. Patient was informed and verbally consented to the use of an ambient scribe for clinic note documentation during this visit. Orders: Orders Free T4 (Free Thyroxine) 1 Month E03.9 - Hypothyroidism, unspecified, Z13.29 - Encounter for screening for other suspected endocrine disorder TSH reflex Free T4 1 Month E03.9 - Hypothyroidism, unspecified, Z13.29 - Encounter for screening for other suspected endocrine disorder Lipid Panel 1 Month E78.00 - Pure hypercholesterolemia, unspecified Medications: New dulaglutide (Trulicity) 0.75 mg (0.5 mL) subcut QWEEK 2 mL 0RF cholecalciferol (vitamin D3) 25 mcg PO DAILY 90 caps 3RF fenofibrate 54 mg PO DAILY 90 tabs 0RF Changed From insulin glargine (Lantus Solostar U-100 Insulin) 20 units (0.2 mL) subcut QPM 3 mL 0RF E11.42 - Type 2 diabetes mellitus with diabetic polyneuropathy, Z79.4 - terminal superintendent (current) use of insulin To insulin glargine (Lantus Solostar U-100 Insulin) 40 units (0.4 mL) subcut QPM 3 mL 0RF E11.42 - Type 2 diabetes mellitus with diabetic polyneuropathy, Z79.4 - terminal superintendent (current) use of insulin Refilled blood-glucose sensor (DexBase CRM G7 Sensor device) As directed 1 ea 4RF E11.42 - Type 2 diabetes mellitus with diabetic polyneuropathy, Z79.4 - terminal superintendent (current) use of insulin Discontinued semaglutide (Ozempic) for 4 weeks Discontinued Reason: Insurance Denied 0.25 mg (0.368 mL) subcut QWEEK 3 mL 0RF E11.42 - Type 2 diabetes mellitus with diabetic polyneuropathy, Z79.4 - senior living (current) use of insulin
[2025-03-10 13:03] VITALS: BP 120/80; PULSE 85; TEMP 36.3; O2SAT 94; BMI 34.3
--- OUTSIDE RECORDS SUMMARY | 2025-03-10 15:44 | XMS_ITS | Encounter Summary ---
Author Organization [employer] [facility] Address [address] [place] [address] Care Team Providers Care Barge Master Name Role Phone Alanna Lomeli MD Primary Care Provider Josue Burger DO Primary Care Provider UnavailChance Nguyen MD Primary Care Provider Unavail able Andi Burns MD Primary Care Provider [phone] Bryanna Lombardi PA-C Unavailable [phone] Chance Askew PA-C Unavailable Sherrell Richard MD Unavailable [phone] Encounter Details Date Type Department Care Team Description 05/03/2015 Hospital Medical Records [address] [place] [address] Charlie Cai MD Social History Tobacco Use Types Packs/Day Years Used Date Smoking Tobacco: Former Cigarettes 0.5 30 Q uit: 05/13/2018 Smokeless Tobacco: Never Alcohol Use Standard Drinks/Week Comments No 0 (1 standard drink = 0.6 oz pur e alcohol) Sex Assigned at Date Recorded Female 09/30/2020 5:53 AM E DT Job Start Date Occupation Industry Not on file Not on file Not on file documented as of this encounter Plan of Treatment Not on file documented as of this encounter Visit Diagnoses Not on filedocumented in this encounter Care Teams Barge Master Relationship Specialty Start Date End Date Alanna Lomeli MD PCP - General Internal Medicine 06/04/12 06/09/15 Josue Vallecillo DO PCP - General Internal Medicine 06/10/15 06/13/15 Chance Rand MD PCP - General Internal Medicine 06/14/15 12/17/19 Andi Burns MD [address] [place] [address] PCP - General Internal Medicine 12/18/19 Bryanna Lombardi PA-C [address] [address] Specialist Neurosurgery 03/31/24 Chance Askew PA-C [address] [address] Specialist Neurosurgery 03/31/24 Sherrell Richard MD [address] [address] Surgeon Neurosurgery 03/31/24 documented as of this encounter
--- OUTSIDE RECORDS SUMMARY | 2025-03-10 15:44 | XMS_ITS | Encounter Summary ---
Author Organization [facility] Address [address] [place] [address] Care Team Providers Care Independent Driver Name Role Phone Chance Rand MD Primary Care Provider Unavail able Andi Burns MD Primary Care Provider Braynna Lombardi PA-C Unavailable [phone] Chance Askew PA-C Unavailable Sherrell Richard MD Unavailable [phone] Reason for Visit * Reason Onset Date Comments REFERRAL 08/20/2015 Encounter Details Date Type Department Care Team Description 08/20/2015 Telephone OBGYN - [place] [address] [place] [id number] Chance Rand MD REFERRAL Social History Tobacco Use Types Packs/Day Years Used Date Smoking Tobacco: Every Day Cigarettes 0.5 Alcohol Use Standard Drinks/Week Comments Not Asked 0 (1 standard drink = 0.6 oz pur e alcohol) Sex Assigned at Date Recorded Female 09/30/2020 5:53 AM E DT Job Start Date Occupation Industry Not on file Not on file Not on file documented as of this encounter Miscellaneous Notes * Telephone Encounter - Chance Rand MD - 08/20/2015 6:14 PM EDT Thank you. * Telephone Encounter - Jazmine Franco - 08/20/2015 12:53 PM EDT OBGYN We are waiting for the patients records from previous CRYPTOLOGIC TECHNICIAN TECHNICAL Unable to book appt until the records are received documented in this encounter Plan of Treatment Not on file documented as of this encounter Visit Diagnoses Not on filedocumented in this encounter Care Teams Independent Driver Relationship Specialty Start Date End Date Chance Rand MD PCP - General Internal Medicine 06/14/15 12/17/19 Andi Bunrs MD [address] [place] [address] PCP - General Internal Medicine 12/18/19 Bryanna Lombardi PA-C [address] [address] Specialist Neurosurgery 03/31/24 Chance Askew PA-C [address] [address] Specialist Neurosurgery 03/31/24 Sherrell Richard MD [address] [address] Surgeon Neurosurgery 03/31/24 documented as of this encounter
--- OUTSIDE RECORDS SUMMARY | 2025-03-10 15:45 | XMS_ITS | Encounter Summary ---
Author Organization [facility] Address [address] [place] [address] Phone Care Team Providers Care Payroll Clerk Name Role Phone Andi Burns MD Primary Care Provider + Andi Burns MD Primary Care Provider + Encounter Details Date Type Department Care Team (Latest Contact Info) Description 06/09/2020 Transcribe Orders Virtual Department [address] [place] [address] Surinder Magdaleno MD [address] [facility] [address] [place] [address] Encounter for laboratory testing for COVID-19 virus [...] PATIENT DID NOT ARRIVE FOR SCHEDULED TESTING. [facility] Comment:PROVIDER TO RESCHEDU LE NECESSARY. Symptomatic? NO [facility] Other 06/21/2020 7:53 AM EST 06/21/2020 8:00 PM EST us Surinder Magdaleno MD BODY FLUIDS AND STOOLS O RDERABLES Final Result [facility] [address] [place] [address] documented in this encounter Visit Diagnoses Diagnosis Encounter for laboratory testing for COVID-19 virus- Primary documented in this encounter Care Teams Payroll Clerk Relationship Specialty Start Date End Date Andi Burns MD [address] [place] [id number] PCP - General Internal Medicine 03/03/20 03/16/22 Andi Burns MD [address] [place] [address] PCP - General Internal Medicine 03/17/22 documented as of this encounter Additional Source Comments The information contained in this document represents components of the legal health record. It is not the complete legal health record.[facility]
--- OUTSIDE RECORDS SUMMARY | 2025-03-10 15:45 | XMS_ITS | Encounter Summary ---
Author Organization [facility] Address [address] [place] [address] Care Team Providers Care Pyrotechnic Mixer Name Role Phone Andi Burns MD Primary Care Provider Bryanna Lombardi PA-C Unavailable Chance Askew PA-C Unavailable [phone] Sherrell Richard MD Unavailable [phone] Encounter Details Date Type Department Care Team Description 02/21/2023 Refill Adult Medicine [facility] [address] [place] [address] [phone] Andi Burns MD [address] [place] [address] [phone] Social History Tobacco Use Types Packs/Day Years Used Date Smoking Tobacco: Former Cigarettes 0.5 30 Q uit: 05/13/2018 Smokeless Tobacco: Never Alcohol Use Standard Drinks/Week Comments No 0 (1 standard drink = 0.6 oz pur e alcohol) Sex Assigned at Date Recorded Female 09/30/2020 5:53 AM E DT Job Start Date Occupation Industry Not on file Not on file Not on file COVID-19 Exposure Response Date Recorded In the last 10 days, have yo u been in contact with someone who was confirmed or suspected to have Coronavirus/COVID-19? No / Unsure 02/21/2023 3:04 PM EDT documented as of this encounter Plan of Treatment Not on file documented as of this encounter Visit Diagnoses Not on filedocumented in this encounter Care Teams Pyrotechnic Mixer Relationship Specialty Start Date End Date Andi Burns MD [address] [place] [address] PCP - General Internal Medicine 12/18/19 Bryanna Lombardi PA-C [address] [address] Specialist Neurosurgery 03/31/24 Chance Askew PA-C [address] [address] Specialist Neurosurgery 03/31/24 Sherrell Richard MD [address] [address] Surgeon Neurosurgery 03/31/24 documented as of this encounter
--- OUTSIDE RECORDS SUMMARY | 2025-03-10 15:45 | XMS_ITS | Encounter Summary ---
Author Organization [facility] Address [address] [place] [address] Care Team Providers Care Water Safety Instructor Name Role Phone Chance Rand MD Primary Care Provider Unavail able Andi Burns MD Primary Care Provider [phone] Bryanna Lombardi PA-C Unavailable [phone] Chance Askew PA-C Unavailable [phone] Sherrell Richard MD Unavailable [phone] Encounter Details Date Type Department Care Team Description 02/18/2016 Food Supervisor Report Medical Records [address] [place] [id number] Laly Andrew MD Social History Tobacco Use Types Packs/Day [...] on filedocumented in this encounter Care Teams Water Safety Instructor Relationship Specialty Start Date End Date Chance Rand MD PCP - General Internal Medicine 06/14/15 12/17/19 Andi Burns MD [address] [place] [address] [phone] PCP - General Internal Medicine 12/18/19 Bryanna Lombardi PA-C [address] [address] Specialist Neurosurgery 03/31/24 Chance Askew PA-C [address] [phone] Specialist Neurosurgery 03/31/24 Sherrell Richard MD [address] [address] Surgeon Neurosurgery 03/31/24 documented as of this encounter
--- OUTSIDE RECORDS SUMMARY | 2025-03-10 15:45 | XMS_ITS | Encounter Summary ---
Author Organization [facility] Address [address] [place] [address] Care Team Providers Care Erp Business Analyst Name Role Phone Chance Rand MD Primary Care Provider Unavail able Andi Burns MD Primary Care Provider Bryanna Lombardi PA-C Unavailable [phone] Chance Askew PA-C Unavailable [phone] Sherrell Richard MD Unavailable [phone] Encounter Details Date Type Department Care Team Description 12/22/2015 Hospital Medical Records [address] [place] [id number] Gretta Mccormick Social History Tobacco Use Types Packs/Day Years [...] on filedocumented in this encounter Care Teams Erp Business Analyst Relationship Specialty Start Date End Date Chance Rand MD PCP - General Internal Medicine 06/14/15 12/17/19 Andi Burns MD [address] [place] [address] PCP - General Internal Medicine 12/18/19 Bryanna Lombardi PA-C [address] [address] Specialist Neurosurgery 03/31/24 Chance Askew PA-C [address] [address] Specialist Neurosurgery 03/31/24 Sherrell Richard MD [address] [address] Surgeon Neurosurgery 03/31/24 documented as of this encounter
--- OUTSIDE RECORDS SUMMARY | 2025-03-10 15:45 | XMS_ITS | Encounter Summary ---
Author Organization [employer] [facility] Address [address] [place] [address] Care Team Providers Care Asw/Asuw Tactical Air Controller Name Role Phone Chance Rand MD Primary Care Provider Unavail able Andi Burns MD Primary Care Provider [phone] Bryanna Lombardi PA-C Unavailable [phone] Chance Askew PA-C Unavailable [phone] Sherrell Richard MD Unavailable [phone] Encounter Details Date Type Department Care Team Description 08/10/2016 Bedspring Assembler Report Medical Records [address] [place] [address] Libra Weinstein PA-C Social History Tobacco Use Types Packs/Day Years Used Date Smoking Tobacco: Every Day Cigarettes 0.5 30 Alcohol Use Standard Drinks/Week Comments Not Asked [...] on filedocumented in this encounter Care Teams Asw/Asuw Tactical Air Controller Relationship Specialty Start Date End Date Chance Rand MD PCP - General Internal Medicine 06/14/15 12/17/19 Andi Burns MD [address] [place] [address] PCP - General Internal Medicine 12/18/19 Bryanna Lombardi PA-C [address] [address] Specialist Neurosurgery 03/31/24 Chance Askew PA-C [address] [address] Specialist Neurosurgery 03/31/24 Sherrell Richard MD [address] [address] Surgeon Neurosurgery 03/31/24 documented as of this encounter
--- OUTSIDE RECORDS SUMMARY | 2025-03-10 15:45 | XMS_ITS | Encounter Summary ---
Author Organization [facility] Address [address] [place] [address] Care Team Providers Care Staff Software Engineer Name Role Phone Chance Rand MD Primary Care Provider Unavail able Andi Burns MD Primary Care Provider Bryanna Lombardi PA-C Unavailable Chance Askew PA-C Unavailable Sherrell Richard MD Unavailable [phone] Reason for Visit * Reason Onset Date Comments TEST RESULTS 01/20/2016 Encounter Details Date Type Department Care Team Description 01/20/2016 Telephone Adult Medicine [address] [address] Chance Rand MD TEST RESULTS Social History Tobacco Use Types Packs/Day Years [...] encounter Miscellaneous Notes * Telephone Encounter - Abby Daigle M.A. - 01/24/2016 11:09 AM EDT Spoke with pts daughter. The pt will call me back. * Telephone Encounter - James Tatum - 01/24/2016 11:05 AM EDT Patient cannot make it in today, would like a call back to discuss when she can make it in * Telephone Encounter - Abby Daigle M.A. - 01/21/2016 10:27 AM EDT Message left for patient to return my call. * Telephone Encounter - Chance Rand MD - 01/21/2016 10:16 AM EDT This will be fine. * Telephone Encounter - Abby Daigle M.A. - 01/21/2016 9:41 AM EDT Is a 1 pm appt ok? * Telephone Encounter - Chance Rand MD - 01/21/2016 9:32 AM EDT 01/24 will be fine. * Telephone Encounter - Abby Daigle M.A. - 01/21/2016 8:34 AM EDT Did you mean 01/24? * Telephone Encounter - Chance Rand MD - 01/20/2016 6:54 PM EDT Patient has mildly elevated free thyroxine of 1.99. Discussed with the patient, please schedule to see me on 10/24 so methimazole can be restarted. * Telephone Encounter - Kelly Olmedo - 01/20/2016 1:39 PM EDT Patient can be reached at [phone] * Telephone Encounter - Chance Rand MD - 01/20/2016 12:22 PM EDT Message left. * Telephone Encounter - Shannan Gibbons - 01/20/2016 9:47 AM EDT Inform patient: ANY URGENT OR ABNORMAL RESULTS WIILL RESULT IN A CALL BACK TO THE PATIENT VIANEY. Type of test: :bloodwork Date test was performed: 01/17/16 Where was the test performed: [facility] Who ordered this test?: dr rand Is the doctor here today?: YES Can the message wait until the doctor returns?: YES IF PATIENT'S PCP IS NOT IN INSTRUCT PATIENT THAT THEY WILL RECEIVE A CALL BACK WHEN THE PCP IS IN THE OFFICE NEXT. documented in this encounter Plan of Treatment Not on file documented as of this encounter Visit Diagnoses Not on filedocumented in this encounter Care Teams Staff Software Engineer Relationship Specialty Start Date End Date Chance Rand MD PCP - General Internal Medicine 06/14/15 12/17/19 Andi Burns MD [address] [place] [address] PCP - General Internal Medicine 12/18/19 Bryanna Lombardi PA-C [address] [address] Specialist Neurosurgery 03/31/24 Chance Askew PA-C [address] [address] Specialist Neurosurgery 03/31/24 Sherrell Richard MD [address] [place] [address] Surgeon Neurosurgery 03/31/24 documented as of this encounter
--- OUTSIDE RECORDS SUMMARY | 2025-03-10 15:45 | XMS_ITS | Clinical Summary ---
Author Organization [facility] Address [address] [address] Phone Care Team Providers Care Corn Crop Supervisor Name Role Phone Andi Burns MD Primary [...] (#1) 2025 , 04/23/2020, 05/08/2012 COVID-19 VACCINE (4 - 2024-2 6 season) 2025 06/17/2021, 12/28/2020, 11/30/2020 LIPID PANEL 04/21/2025 04/21/2020 Adult Td,Tdap Booster 04/23/2030 04/23/2020 RSV VACCINE (1 - 1-dose 75+ series) 2041 HEPATITIS A VACCINES Aged Out No long [...] EDT) SODIUM 141 133 - 146 mmol/L [facility] CHLORIDE 100 96 - 108 mmol/L [facility] POTASSIUM 4.8 3.3 - 5.1 mmol/L [facility] CO2 28 21 - 35 mmol/L [facility] BUN 23(H) 6 - 19 mg/dL [facility] CREATININE 0.90 0.5 - 1.5 mg/dL [facility] GLUCOSE 188(H) 70 - 99 mg/dL [facility] CALCIUM 9.4 8.4 - 10.3 mg/dL [facility] EGFR 75 >59 mL/min/1.7 3m2 [facility] Comment:Estimated glomerular filtration rate calculated using the CKD-EPI refit equation. ANION GAP 18 10 - 20 mmol/L [facility] Blood 03/17/2022 7:15 AM EDT 03/17/2022 7:22 AM EDT Anita David MD LAB BLOOD ORDERABLES Final Result [facility] [address] [place] [address] from Last 3 Months or Most Recently Relevant to Health Maintenance Insurance [facility] PPO EPO [facility] PPO EPO [id number] [place] [address] PPO EPO [facility] PPO EPO [facility] PPO EPO [facility] PPO EPO [facility] PPO EPO [facility] PPO EPO [facility] PPO EPO Care Teams Corn Crop Supervisor Relationship Specialty Start Date End Date Andi Burns MD [address] [place] [address] PCP - General Internal Medicine 03/17/22 Additional Source Comments The information contained in this document represents components of the legal health record. It is not the complete legal health record.[facility]
--- OUTSIDE RECORDS SUMMARY | 2025-03-10 15:45 | XMS_ITS | Encounter Summary ---
Author Organization [facility] Address [address] [place] [address] Care Team Providers Care Claim Examiner Name Role Phone Andi Burns MD Primary Care Provider [phone] Bryanna Lombardi PA-C Unavailable [phone] Chance Askew PA-C Unavailable Sherrell Richard MD Unavailable [phone] Reason for Visit * Reason Comments E-prescribe Rx Request Encounter Details Date Type Department Care Team Description 05/22/2021 Refill Adult Medicine [address] [address] Sepideh Zuniga PA-C E-prescribe Rx Request Social History Tobacco Use Types Packs/Day Years [...] Exposure Response Date Recorded In the last month, have you been in contact with someone who was confirmed or suspected to have Coronavirus / COVID-19? No / Unsure 04/29/2021 8:35 AM EST documented as of this encounter Plan of Treatment Not on file documented as of this encounter Visit Diagnoses Not on filedocumented in this encounter Care Teams Claim Examiner Relationship Specialty Start Date End Date Andi Burns MD [address] [place] [address] PCP - General Internal Medicine 12/18/19 Bryanna Lombardi PA-C [address] [address] Specialist Neurosurgery 03/31/24 Chance Askew PA-C [address] [address] Specialist Neurosurgery 03/31/24 Sherrell Richard MD [address] [address] Surgeon Neurosurgery 03/31/24 documented as of this encounter
--- OUTSIDE RECORDS SUMMARY | 2025-03-10 15:45 | XMS_ITS | Encounter Summary ---
Author Organization [facility] Address [address] [place] [address] Care Team Providers Care Corn Shredder Name Role Phone Chance Rand MD Primary Care Provider Unavail able Andi Burns MD Primary Care Provider [phone] Bryanna Lombardi PA-C Unavailable Chance Askew PA-C Unavailable [phone] Sherrell Richard MD Unavailable [phone] Encounter Details Date Type Department Care Team Description 03/02/2017 Release of Information Medical Records [address] [place] [address] Abstract, Provider Social History Tobacco Use Types Packs/Day Years [...] on filedocumented in this encounter Care Teams Corn Shredder Relationship Specialty Start Date End Date Chance Rand MD PCP - General Internal Medicine 06/14/15 12/17/19 Andi Burns MD [address] [place] [address] PCP - General Internal Medicine 12/18/19 Bryanna Lombardi PA-C [address] [address] Specialist Neurosurgery 03/31/24 Chnace Askew PA-C [address] [address] Specialist Neurosurgery 03/31/24 Sherrell Richard MD [address] [id number] Surgeon Neurosurgery 03/31/24 documented as of this encounter
--- OUTSIDE RECORDS SUMMARY | 2025-03-10 15:45 | XMS_ITS | Encounter Summary ---
Author Organization [facility] Address [address] [place] [address] Care Team Providers Care Bill Board Poster Name Role Phone Chance Rand MD Primary Care Provider Unavail able Andi Burns MD Primary Care Provider [phone] Bryanna Lombardi PA-C Unavailable Chance Askew PA-C Unavailable [phone] Sherrell Richard MD Unavailable [phone] Encounter Details Date Type Department Care Team Description 08/04/2016 [facility] Medical Records [address] [place] [address] Abstract, Provider Social History Tobacco Use Types [...] on filedocumented in this encounter Care Teams Bill Board Poster Relationship Specialty Start Date End Date Chance Rand MD PCP - General Internal Medicine 06/14/15 12/17/19 Andi Burns MD [address] [place] [address] PCP - General Internal Medicine 12/18/19 Bryanna Lombardi PA-C [address] [id number] Specialist Neurosurgery 03/31/24 Chance Askew PA-C [address] [phone] Specialist Neurosurgery 03/31/24 Sherrell Richard MD [address] [phone] Surgeon Neurosurgery 03/31/24 documented as of this encounter
--- OUTSIDE RECORDS SUMMARY | 2025-03-10 15:45 | XMS_ITS | Encounter Summary ---
Author Organization [employer] [facility] Address [address] [place] [address] Care Team Providers Care Concrete Vibrator Operator Name Role Phone Chance Rand MD Primary Care Provider Unavail able Andi Burns MD Primary Care Provider Bryanna Lombardi PA-C Unavailable [phone] Chance Askew PA-C Unavailable [phone] Sherrell Richard MD Unavailable [phone] Encounter Details Date Type Department Care Team Description 12/22/2015 Hospital Medical Records [address] [place] [address] Josue Beltre Social History Tobacco Use Types Packs/Day Years [...] on filedocumented in this encounter Care Teams Concrete Vibrator Operator Relationship Specialty Start Date End Date Chance Rand MD PCP - General Internal Medicine 06/14/15 12/17/19 Andi Burns MD [address] [place] [address] PCP - General Internal Medicine 12/18/19 Bryanna Lombardi PA-C [address] [address] Specialist Neurosurgery 03/31/24 Chance Askew PA-C [address] [address] Specialist Neurosurgery 03/31/24 Sherrell Richard MD [address] [address] Surgeon Neurosurgery 03/31/24 documented as of this encounter
--- OUTSIDE RECORDS SUMMARY | 2025-03-10 15:45 | XMS_ITS | Encounter Summary ---
Author Organization [employer] [facility] Address [address] [place] [address] Care Team Providers Care Fish Salter Name Role Phone Chance Rand MD Primary Care Provider Unavail able Andi Burns MD Primary Care Provider [phone] Bryanna Lombardi PA-C Unavailable Chance Askew PA-C Unavailable [phone] Sherrell Richard MD Unavailable [phone] Reason for Visit * Reason Onset Date Comments Quality Outreach--Diabetes 09/07/2015 T2DM initial outreach Encounter Details Date Type Department Care Team Description 09/07/2015 Telephone Adult Medicine [address] [address] Chance Rand MD Quality Outreach--Diabetes (T2DM initial outreach) Social History Tobacco Use Types Packs/Day Years [...] encounter Miscellaneous Notes * Telephone Encounter - Teresa Delaney - 09/21/2015 11:13 AM EDT Pt calling back, her number is [phone] * Telephone Encounter - Sue BoyerYadira - 09/21/2015 11:00 AM EDT Patient was called for DM outreach. Message left for patient to call me back 8- 4:30 at [phone] * Telephone Encounter - Sue Xaviertin - 09/07/2015 8:55 AM EDT Patient was called for initial DM outreach. Message left to call me back at [phone] documented in this encounter Plan of Treatment Not on file documented as of this encounter Visit Diagnoses Not on filedocumented in this encounter Care Teams Fish Salter Relationship Specialty Start Date End Date Chance Rand MD PCP - General Internal Medicine 06/14/15 12/17/19 Andi Burns MD [address] [place] [address] PCP - General Internal Medicine 12/18/19 Bryanna Lombardi PA-C [address] [address] Specialist Neurosurgery 03/31/24 Chance Askew PA-C [address] [address] Specialist Neurosurgery 03/31/24 Sherrell Richard MD [address] [address] Surgeon Neurosurgery 03/31/24 documented as of this encounter
--- OUTSIDE RECORDS SUMMARY | 2025-03-10 15:45 | XMS_ITS | Clinical Summary ---
Author Organization [facility] Address [address] [place] [address] Phone Care Team Providers Care Network Security Engineer Name Role Phone Andi Burns MD Primary Care Provider [phone] Allergies No known active allergies Medications atorvastatin [...] on neck and head CTA done at [facility] May 2023. She has chronic history of headaches, I reviewed multiple head CTs spanning 4930-0595 at [facility] [place], which were done for headaches, they did not have any acute findings or aneurysms noted. 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 She also had brain MRI at that ED visit with no acute intracranial pathology. We called [facility] to request imaging report and CD to [...] Type 2 diabetes mellitus wit h cataract ([facility]/HCC V24, [facility] V28) 06/30/2016 Cataract 06/30/2016 Proteinuria 06/28/2016 DM (diabetes mellitus), type 2 with renal complications ([facility] V24, [facility] V28) 06/28/2016 Diabetic neuropathy ([facility] V24, [facility] V28) 0 06/28/2016 Onychomycosis 08/06/2015 Diabetes mellitus type 2 wit h neurological manifestations ([facility] V24, [facility] V28) 08/06/2015 Hyperlipidemia 07/15/2015 Graves disease [...] (diabetes mellitus), type 2 with renal complications ([facility] V24, [facility] V28) 06/28/2016 DX:DM (diabetes mellitus), t ype 2 with renal complications ([facility]) Proteinuria 06/28/2016 DX:Proteinuria Diabetic neuropathy ([facility] V24, [facility] V28) 06/28/2016 DX:Diabetic neuropathy (HCC) Cataract 06/30/2016 DX:Cataract Type 2 diabetes mellitus wit h cataract ([facility] V24, [facility] V28) 06/30/2016 DX:Type 2 diabetes mellitus with cataract (HCC) Hyperlipidemia 07/15/2015 DX:Hyperlipidemi a Diabetes mellitus type 2 wit h neurological manifestations ([facility] V24, [facility] V28) 08/06/2015 DX:Diabetes mellitus type [...] 09/02/2025 2:00 PM EDT Office Visit Nephrology [place] [id number] [place] [phone] Mao Duron MD [address] [place] [address] Health Maintenance Due Date Last Done Comments [...] * Annual BMP Blood Test (09/18/2023) Pathologist [facility] Annual BMP Blood Test Abstracted Result [facility] Provider HEALTH MAINTENANCE Final Result * (ABNORMAL) Hemoglobin A1c (09/18/2023) Pathologist [facility] Hemoglobin A1C 9.3(A) <=6.5 % Blood Venous blood specimen / Unknown [facility] Provider LAB BLOOD ORDERABLES Arielle l Result * (ABNORMAL) Lipid panel (09/18/2023) Pathologist [facility] LDL/HDL Ratio 4 0 - 4 Triglycerides 282(A) 0 - 150 mg/dL Cholesterol 173 0 - 200 mg/dL HDL 45 >=40 mg/dL LDL Cholesterol 72 0 - 100 mg/dL Blood Venous blood specimen / Unknown us Historical Provider LAB BLOOD ORDERABLES Arielle l Result * Urine Albumin Creatinine Ratio (09/17/2023) Urine Albumin Creatinine Ratio Abstracted Result [facility] Historical Provider HEALTH MAINTENANCE Final Result * Cervical Cancer Screening: HPV (03/23/2022) Cervical Cancer Screening: HPV Abstracted, Not detected Result [facility] Provider [facility] Final Result * SCREENING MAMMOGRAPHY BI 2-VIEW [...] Breast cancer risk category Low (<15%) Result [facility] Andi Burns MD IMG XR PROCEDURES Final Result * Hepatitis C Screening (11/01/2017) Hepatitis C Screening Abstracted Historical Provider HEALTH MAINTENANCE Final Result * Colonoscopy (05/25/2017) Colonoscopy Abstracted, Normal Anatomical Region Laterality Modality Other Historical Provider HEALTH MAINTENANCE Final Result from Last 3 Months or Most Recently Relevant to Health Maintenance [place] [address] Care Teams Network Security Engineer Relationship Specialty Start Date End Date Andi Burns MD [address] [place] [address] PCP - General Internal Medicine 04/18/24
--- OUTSIDE RECORDS SUMMARY | 2025-03-10 15:45 | XMS_ITS | Encounter Summary ---
Author Organization [facility] Address [address] [facility] [address] [place] [address] Phone Care Team Providers Care Quality Manager Name Role Phone Pcp, Unknown Primary Care Provider Andi Mendoza MD Primary Care Provider + Andi Burns MD Primary Care Provider + Encounter Details Date Type Department Care Team (Latest Contact Info) Description 03/02/2020 Transcribe Orders Virtual Department [address] [place] [address] Surinder Magdaleno MD [address] [facility] [address] [place] [address] Encounter for laboratory testing for COVID-19 virus [...] 4:16 PM EDT) Specimen Source 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 SWAB (LAST REMODELER REPAIRER) [facility] COVID Testing Status Sent to [facility] Other 03/07/2020 4:16 PM EDT 03/07/2020 5:43 PM EDT us Surinder Magdaleno MD BODY FLUIDS AND STOOLS O RDERABLES Final Result [facility] [address] [place] [address] documented in this encounter Visit Diagnoses Diagnosis Encounter for laboratory testing for COVID-19 virus- Primary documented in this encounter Additional Health Concerns Infection Onset Date Last Indicated Resolved Time CoV-Exposed Comment:Recent close contact 03/02/2020 03/02/2020 03/16/2020 1:23 AM EDT documented as of this encounter Care Teams Quality Manager Relationship Specialty Start Date End Date Pcp, Unknown PCP - General 12/15/19 03/02/20 Andi Burns MD [address] [place] [address] PCP - General Internal Medicine 03/03/20 03/16/22 Andi Burns MD [address] [place] [address] PCP - General Internal Medicine 03/17/22 documented as of this encounter Additional Source Comments The information contained in this document represents components of the legal health record. It is not the complete legal health record.[facility]
--- OUTSIDE RECORDS SUMMARY | 2025-03-10 15:45 | XMS_ITS | Encounter Summary ---
Author Organization [facility] Address [address] [place] [address] Care Team Providers Care Fruit Bar Maker Name Role Phone Chance Rand MD Primary Care Provider Unavail able Andi Burns MD Primary Care Provider [phone] Bryanna Lombardi PA-C Unavailable Chance Askew PA-C Unavailable [phone] Sherrell Richard MD Unavailable [phone] Reason for Visit * Reason Onset Date Comments kidney stone 07/26/2016 Encounter Details Date Type Department Care Team Description 07/26/2016 Telephone Adult Medicine [address] [address] Chance Rand MD kidney stone Social History Tobacco Use Types Packs/Day Years [...] encounter Miscellaneous Notes * Telephone Encounter - Shruti Li L.P.N. - 07/26/2016 9:19 AM EST pt co flank pain ,states she has hx of kidney stones ,noted blood in urine ,states pain is a 10 on a scale of 1-10 ,states pain brought her to her knees today at work ,advised er visit now ,she agreed and will go to [place] * Telephone Encounter - Reji Gallegos - 07/26/2016 9:13 AM EST documented in this encounter Plan of Treatment Not on file documented as of this encounter Visit Diagnoses Not on filedocumented in this encounter Care Teams Fruit Bar Maker Relationship Specialty Start Date End Date Chance Rand MD PCP - General Internal Medicine 06/14/15 12/17/19 Andi Burns MD [address] [place] [address] PCP - General Internal Medicine 12/18/19 Bryanna Lombardi PA-C [address] [address] Specialist Neurosurgery 03/31/24 Chance Askew PA-C [address] [address] Specialist Neurosurgery 03/31/24 Sherrell Richard MD [address] [address] Surgeon Neurosurgery 03/31/24 documented as of this encounter
--- OUTSIDE RECORDS SUMMARY | 2025-03-10 15:45 | XMS_ITS | Encounter Summary ---
Author Organization [facility] Address [address] [place] [address] Care Team Providers Care Noc Technician Name Role Phone Andi Burns MD Primary Care Provider [phone] Bryanna Lombardi PA-C Unavailable Chance Askew PA-C Unavailable Sherrell Richard MD Unavailable [phone] Reason for Visit * Reason Onset Date Comments Testing 10/13/2022 Encounter Details Date Type Department Care Team Description 10/13/2022 Telephone Adult Medicine [address] [id number] Carisa Tolliver PA [address] [place] [id number] Testing Social History Tobacco Use Types Packs/Day Years [...] suspected to have Coronavirus/COVID-19? No / Unsure 10/12/2022 8:15 AM EDT documented as of this encounter Miscellaneous Notes * Telephone Encounter - Crystal Pierre M.A. - 10/19/2022 1:57 PM EDT Notes have been requested * Telephone Encounter - LUIS F Mays - 10/13/2022 9:31 AM EDT Patient follows with [place] [facility]. She reports being up-to-date on mammogram and Pap. Please requestreports. documented in this encounter Plan of Treatment Not on file documented as of this encounter Visit Diagnoses Not on filedocumented in this encounter Care Teams Noc Technician Relationship Specialty Start Date End Date Andi Burns MD [address] [place] [address] PCP - General Internal Medicine 12/18/19 Bryanna Lombardi PA-C [address] [address] Specialist Neurosurgery 03/31/24 Chance Askew PA-C [address] [address] Specialist Neurosurgery 03/31/24 Sherrell Richard MD [address] [address] Surgeon Neurosurgery 03/31/24 documented as of this encounter
--- OUTSIDE RECORDS SUMMARY | 2025-03-10 15:45 | XMS_ITS | Encounter Summary ---
Author Organization [facility] Address [address] [facility] [address] [place] [address] Phone Care Team Providers Care Administrative Specialist Name Role Phone Pcp, Unknown Primary Care Provider Andi Mendoza MD Primary Care Provider + Andi Burns MD Primary Care Provider + Encounter Details Date Type Department Care Team (Latest Contact Info) Description 02/11/2020 Transcribe Orders Virtual Department [address] [place] [address] Surinder Magdaleno MD [address] [facility] [address] [place] [address] Encounter for laboratory testing for COVID-19 virus [...] 2:48 PM EDT) Specimen Source 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 SWAB (FINISHER BRUSH) [facility] COVID Testing Status Sent to [facility] Micro Lab [facility] Other 02/13/2020 2:48 PM EDT 02/13/2020 3:18 PM EDT us Surinder Magdaleno MD BODY FLUIDS AND STOOLS O RDERABLES Final Result [facility] [address] [place] [address] documented in this encounter Visit Diagnoses Diagnosis Encounter for laboratory testing for COVID-19 virus- Primary documented in this encounter Additional Health Concerns Infection Onset Date Last Indicated Resolved Time CoV-Exposed Comment:Recent close contact 03/02/2020 03/02/2020 03/16/2020 1:23 AM EDT documented as of this encounter Care Teams Administrative Specialist Relationship Specialty Start Date End Date Pcp, Unknown PCP - General 12/15/19 03/02/20 Andi Burns MD [address] [place] [address] PCP - General Internal Medicine 03/03/20 03/16/22 Andi Burns MD [address] [place] [address] PCP - General Internal Medicine 03/17/22 documented as of this encounter Additional Source Comments The information contained in this document represents components of the legal health record. It is not the complete legal health record.[facility]
--- OUTSIDE RECORDS SUMMARY | 2025-03-10 15:45 | XMS_ITS | Encounter Summary ---
Author Organization [facility] Address [address] [place] [address] Care Team Providers Care Carpenter Mate Name Role Phone Andi Burns MD Primary Care Provider Bryanna Lombardi PA-C Unavailable Chance Askew PA-C Unavailable Sherrell Richard MD Unavailable [phone] Reason for Visit * Reason Comments E-prescribe Rx Request Encounter Details Date Type Department Care Team Description 10/12/2021 Refill Adult Medicine [address] [phone] Andi Burns MD [address] [place] [address] [phone] E-prescribe Rx Request Social History Tobacco Use [...] encounter Miscellaneous Notes * Telephone Encounter - Wm Frias M.A. - 10/12/2021 4:10 PM EDT Lab Results Component Value Date HGBA1C 6.9 07/12/2021 MALBUR 7.4 07/12/2021 MALBCR < 4.7 07/12/2021 CHOL 142 07/12/2021 LDL 44 07/12/2021 HDL 39 07/12/2021 TRIG 296 07/12/2021 GLU 136 07/12/2021 CREAT 1.04 07/12/2021 ANISHA w/PCP 07/15/2021 Next OV 11/18/2021 w/PCP Pls review in Dr. Burns's absence, thank you. * Telephone Encounter - Julisa Ashton - 10/12/2021 3:50 PM EDT Patient would like script to be: E-PRESCRIBED/FAXED TO PHARMACY WHEN WAS THE PATIENT'S LAST APPOINTMENT IN ADULT MEDICINE? 07/15/21 WHEN WAS THE LAST TIME THE PATIENT SAW THEIR PCP? Does patient have an upcoming appointment? Yes 11/18/21 (THE MEDICATION REQUESTED IS ON THE MED LIST ABOVE) All of the medications requested were on the CURRENT MEDS list Did you check the Pharmacy information above?: YES Patient wants: 30 -day supply Is this a mail order prescription request ? NO If the refill is from a FAXED refill request what is the RX # listed on the fax? N/A Patients current insurance carrier is: Payor: [employer] [facility] [employer] / Plan: HMO $25 NEON 1 / Product Type: HMO [id number] documented in this encounter Plan of Treatment Not on file documented as of this encounter Visit Diagnoses Diagnosis Type 2 diabetes mellitus with diabetic nephropathy, with long-term current use of insulin (HCC) documented in this encounter Care Teams Carpenter Mate Relationship Specialty Start Date End Date Andi Burns MD [address] [place] [address] PCP - General Internal Medicine 12/18/19 Bryanna Lombardi PA-C [address] [address] Specialist Neurosurgery 03/31/24 Chance Askew PA-C [address] [address] Specialist Neurosurgery 03/31/24 Sherrell Richard MD [address] [address] Surgeon Neurosurgery 03/31/24 documented as of this encounter
--- OUTSIDE RECORDS SUMMARY | 2025-03-10 15:45 | XMS_ITS | Encounter Summary ---
Author Organization [facility] Address [address] [place] [address] Care Team Providers Care Police Officer Booking Name Role Phone Chance Rand MD Primary Care Provider Unavail able Andi Burns MD Primary Care Provider [phone] Bryanna Lombardi PA-C Unavailable Chance Askew PA-C Unavailable Sherrell Richard MD Unavailable [phone] Reason for Visit * Reason Onset Date Comments Prior Authorization 11/08/2018 lower extrem ity arterial duplex Encounter Details Date Type Department Care Team Description 11/08/2018 Telephone Adult Medicine [address] [address] Gwen Gaston PA-C Prior Authorization (lower extremity arterial duplex) Social History Tobacco Use Types Packs/Day Years [...] encounter Miscellaneous Notes * Telephone Encounter - Maureen Tyler - 11/08/2018 9:55 AM EDT BCBS - no auth req .Order was sent to the [facility] pool for scheduling. documented in this encounter Plan of Treatment Not on file documented as of this encounter Visit Diagnoses Not on filedocumented in this encounter Care Teams Police Officer Booking Relationship Specialty Start Date End Date Chance Rand MD PCP - General Internal Medicine 06/14/15 12/17/19 Andi Burns MD [address] [place] [address] PCP - General Internal Medicine 12/18/19 Bryanna Lombardi PA-C [address] [address] Specialist Neurosurgery 03/31/24 Chance Askew PA-C [address] [address] Specialist Neurosurgery 03/31/24 Sherrell Richard MD [address] [address] Surgeon Neurosurgery 03/31/24 documented as of this encounter
--- OUTSIDE RECORDS SUMMARY | 2025-03-10 15:45 | XMS_ITS | Patient Health Record ---
[facility] Address [address] [facility] [place] [address] Care Team Providers Care Cardiology Technician Name Role Phone RuthyLydia scott Primary Care Provider Unavailab Carlos Enrique Lazo Unavailable [phone] Allergies No Known Allergies Results Component Value [...] Problem Acquired hammer toe of right foot (429915505742508 5) Other hammer toe(s) (acquired), right foot (M20.41) Active confirmed Problem Acquired hammer toe of left foot (275845525906513 3) Other hammer toe(s) (acquired), left foot (M20.42) Active confirmed Problem Type II diabetes mellitus without complication (756428856) Type 2 diabetes mellitus without complication (E11.9) Active confirmed Vital Signs Blood pressure diastolic 90 mm Hg 02/12/2025 Height 5ft 6in in 02/12/2025 Blood pressure systolic 145 mm Hg 02/12/2025 Weight 224 lbs 02/12/2025 BMI 36.15 kg/m2 02/12/2025 Procedures Procedure Date Ordered Date Performed Result Body Sit e 75719-HYOUWXN NAIL, 6 OR MORE 11/12/2024 N/A 57438-VFEKTSY NAIL, 6 OR MORE 02/12/2025 N/A Encounters Encounter Location Date Provider Diagnosis [facility] [address] [place] [address] 11/12/2024 Carlos Enriquesid EscuderoCrista Pain in right toe(s) M79.674 ; Tinea unguium B35.1 ; Pain in left toe(s) M79.675 ; Type 2 diabetes mellitus without complication E11.9 ; Other hammer toe(s) (acquired), right foot M20.41 and Other hammer toe(s) (acquired), left foot M20.42 [facility] [address] [address] 02/12/2025 Carlos Enrique Tobin Pain in right toe(s) M79.674 ; Tinea unguium B35.1 ; Pain in left toe(s) M79.675 ; Type 2 diabetes mellitus without complication E11.9 ; Other hammer toe(s) (acquired), right foot M20.41 and Other hammer toe(s) (acquired), left foot M20.42 [facility] [place] [address] [place] [address] 08/19/2024 Carlos Enrique Tobin Assessments Encounter Date [...] Treatment Pending Test Test Name Order Date 60323-PHIKPRV NAIL, 6 OR MORE 10/11/2012 97849-VQGWRND NAIL, 6 OR MORE 12/31/2012 90741-GVERASK NAIL, 6 OR MORE 11/12/2024 58455-DRJAIYX NAIL, 6 OR MORE 02/12/2025 75607-Esxaolkb Plate 10/11/2012 26769-WNVK SKIN LESIONS, 2 TO 4 01/01/20 13 Next Appt Details Provider Name:Carlos Enrique Tobin , 05/25/2025 04:00:00 PM, [address] [facility], [facility] [address], [place], [address], Insurance Providers Payer Name Payer Address Payer Phone Subscriber Number Group Number Insured Name Patient Relationship to Insured Coverage Start Date Coverage End Date Blue Benefits [address] [address] [place] [address] [id number] Lisette Ortega Self - patient is the insured Medical (General) History Medical History History ICD Code diabetic thyroid disorder hypertension measles Anxiety Back,Hip,and Knee pain Cataracts High Blood Pressure Mumps Chicken pox Hypercholesterolemia Surgical History Surgery Date(Month/Year) eye procedure 10/16/24 tubal ligation 1989 kidney stones 2017 Thyroid removal Surgery 2019 Hospitalization History Reason Date(Month/Year) [facility] for high blood pressure 05/2012
--- OUTSIDE RECORDS SUMMARY | 2025-03-10 15:45 | XMS_ITS | Encounter Summary ---
Author Organization [email or web address] [facility] Address [address] [place] [address] Care Team Providers Care Wafer Polishing Lead Worker Name Role Phone Chance Rand MD Primary Care Provider Unavail able Andi Burns MD Primary Care Provider [phone] Bryanna Lombardi PA-C Unavailable [phone] Chance Askew PA-C Unavailable Sherrell Richard MD Unavailable [phone] Encounter Details Date Type Department Care Team Description 12/17/2018 Orders Only Adult Medicine [address] [address] Gwen Gaston PA-C Social History Tobacco Use Types Packs/Day [...] on filedocumented in this encounter Care Teams Wafer Polishing Lead Worker Relationship Specialty Start Date End Date Chance Rand MD PCP - General Internal Medicine 06/14/15 12/17/19 Andi Burns MD [address] [place] [address] PCP - General Internal Medicine 12/18/19 Bryanna Lombardi PA-C [address] [address] Specialist Neurosurgery 03/31/24 Chance Askew PA-C [address] [address] Specialist Neurosurgery 03/31/24 Sherrell Richard MD [address] [address] Surgeon Neurosurgery 03/31/24 documented as of this encounter
--- OUTSIDE RECORDS SUMMARY | 2025-03-10 15:45 | XMS_ITS | Encounter Summary ---
Author Organization [facility] Address [address] [place] [address] Care Team Providers Care Last Ironer Name Role Phone Chance Rand MD Primary Care Provider Unavail able Andi Burns MD Primary Care Provider [phone] Bryanna Lombardi PA-C Unavailable Chance Askew PA-C Unavailable [phone] Sherrell Richard MD Unavailable [phone] Encounter Details Date Type Department Care Team Description 08/27/2018 Orders Only Adult Medicine [address] [address] Vicenta Giles NP Social History Tobacco Use Types Packs/Day Years [...] on filedocumented in this encounter Care Teams Last Ironer Relationship Specialty Start Date End Date Chance Rand MD PCP - General Internal Medicine 06/14/15 12/17/19 Andi Burns MD [address] [place] [address] PCP - General Internal Medicine 12/18/19 Brynana Lombardi PA-C [address] [address] Specialist Neurosurgery 03/31/24 Chance Askew PA-C [address] [address] Specialist Neurosurgery 03/31/24 Sherrell Richard MD [address] [address] Surgeon Neurosurgery 03/31/24 documented as of this encounter
--- OUTSIDE RECORDS SUMMARY | 2025-03-10 15:45 | XMS_ITS | Encounter Summary ---
Author Organization [facility] Address [address] [place] [address] Care Team Providers Care Globe Cleaner Name Role Phone Andi Burns MD Primary Care Provider Bryanna Lombardi PA-C Unavailable Chance Askew PA-C Unavailable Sherrell Richard MD Unavailable [phone] Reason for Visit * Reason Onset Date Comments Prior Authorization 07/24/2023 Encounter Details Date Type Department Care Team Description 07/24/2023 Telephone Adult Medicine [address] [phone] Andi Burns MD [address] [place] [address] [phone] Prior Authorization Social History Tobacco Use Types Packs/Day Years [...] encounter Miscellaneous Notes * Telephone Encounter - Moira Alegre M.A. - 07/26/2023 2:39 PM EST Called pts pharm Went through insurance Moira Alegre Prior Auth Dep Ext [id number] * Telephone Encounter - Andree Leblanc Bird - 07/24/2023 3:12 PM EST Prior Authorization for Medication-do not complete and send this encounter unless you have the fax from the pharmacy. Is this a Cover My Meds request: Yes -- [place]man Code [id number] Name of Medication Insulin Glargine (Lantus SoloStar) 100 UNIT/ML Solution Pen-injector Dose of Medication What is the RX # from the faxed refill? How does patient take this med? What Pharmacy did the fax come from: [email or web address] [facility] fax #: [phone] [employer] Party Information from fax: What Prescription Plan does the patient have? BIN/PCN if applicable: Cardholder ID: Person Code: Relationship Code: Help desk phone: documented in this encounter Plan of Treatment Not on file documented as of this encounter Visit Diagnoses Not on filedocumented in this encounter Care Teams Globe Cleaner Relationship Specialty Start Date End Date Andi Burns MD [address] [place] [address] PCP - General Internal Medicine 12/18/19 Bryanna Lombardi PA-C [address] [address] Specialist Neurosurgery 03/31/24 Chance Askew PA-C [address] [address] Specialist Neurosurgery 03/31/24 Sherrell Richard MD [address] [address] Surgeon Neurosurgery 03/31/24 documented as of this encounter
--- OUTSIDE RECORDS SUMMARY | 2025-03-10 15:45 | XMS_ITS | Encounter Summary ---
Author Organization [facility] [facility] Address [address] [place] [address] Care Team Providers Care Passenger Elevator Operator Name Role Phone Chance Rand MD Primary Care Provider Unavail able Andi Burns MD Primary Care Provider Bryanna Lombardi PA-C Unavailable Chance Askew PA-C Unavailable Sherrell Richard MD Unavailable [phone] Encounter Details Date Type Department Care Team Description 08/23/2015 Telephone [address] [address] Adam Miguel, OD Social History Tobacco Use Types Packs/Day Years [...] encounter Miscellaneous Notes * Telephone Encounter - Adam Miguel, AARON - 08/23/2015 4:54 PM EDT Please arrange appt with Dr. Pina for 2-3 wks reduced vision SHERI please call her and write referral letter documented in this encounter Plan of Treatment Not on file documented as of this encounter Visit Diagnoses Not on filedocumented in this encounter Care Teams Passenger Elevator Operator Relationship Specialty Start Date End Date Chance Rand MD PCP - General Internal Medicine 06/14/15 12/17/19 Andi Burns MD [address] [place] [address] PCP - General Internal Medicine 12/18/19 Bryanna Lombardi PA-C [address] [address] Specialist Neurosurgery 03/31/24 Chance Askew PA-C [address] [address] Specialist Neurosurgery 03/31/24 Sherrell Richard MD [address] [address] Surgeon Neurosurgery 03/31/24 documented as of this encounter
--- OUTSIDE RECORDS SUMMARY | 2025-03-10 15:45 | XMS_ITS | Encounter Summary ---
Author Organization [facility] Address [address] [place] [address] Care Team Providers Care Business Relations Manager Name Role Phone Andi Burns MD Primary Care Provider Bryanna Lombardi PA-C Unavailable Chance Askew PA-C Unavailable [phone] Sherrell Richard MD Unavailable [phone] Encounter Details Date Type Department Care Team Description 06/22/2020 Pt. Non Urgent Medical Question Adult Medicine [address] [phone] Andi Burns MD [address] [place] [address] [phone] Social History Tobacco Use Types Packs/Day Years [...] on filedocumented in this encounter Care Teams Business Relations Manager Relationship Specialty Start Date End Date Andi Burns MD [address] [place] [address] PCP - General Internal Medicine 12/18/19 Bryanna Lombardi PA-C [address] [address] Specialist Neurosurgery 03/31/24 Chance Askew PA-C [address] [address] Specialist Neurosurgery 03/31/24 Sherrell Richard MD [address] [address] Surgeon Neurosurgery 03/31/24 documented as of this encounter
--- OUTSIDE RECORDS SUMMARY | 2025-03-10 15:45 | XMS_ITS | Encounter Summary ---
Author Organization [facility] Address [address] [place] [address] Care Team Providers Care Navy Airspace Officer Name Role Phone Andi Burns MD Primary Care Provider [phone] Bryanna Lombardi PA-C Unavailable Chance Askew PA-C Unavailable Sherrell Richard MD Unavailable [phone] Reason for Visit * Reason Comments E-prescribe Rx Request Encounter Details Date Type Department Care Team Description 09/13/2021 Refill Adult Medicine [address] [phone] Andi Burns MD [address] [place] [address] [phone] E-prescribe Rx Request Social History Tobacco Use [...] encounter Miscellaneous Notes * Telephone Encounter - Yoana Zafar - 09/13/2021 1:05 PM EDT Antonio 07/15/21 Ov 11/18/21 Lab Results Component Value Date HGBA1C 6.9 07/12/2021 MALBUR 7.4 07/12/2021 MALBCR < 4.7 07/12/2021 CHOL 142 07/12/2021 LDL 44 07/12/2021 HDL 39 07/12/2021 TRIG 296 07/12/2021 GLU 136 07/12/2021 CREAT 1.04 07/12/2021 * Telephone Encounter - Sheree Sinha - 09/13/2021 10:57 AM EDT Patient would like script to be: E-PRESCRIBED/FAXED TO PHARMACY WHEN WAS THE PATIENT'S LAST APPOINTMENT IN ADULT MEDICINE? 07/15/21 WHEN WAS THE LAST TIME THE PATIENT SAW THEIR PCP? Same as above Does patient have an upcoming appointment? Yes 11/18/21 with PCP (THE MEDICATION REQUESTED IS ON THE MED LIST ABOVE) All of the medications requested were on the CURRENT MEDS list Did you check the Pharmacy information above?: YES Patient wants: 90 -day supply Is this a mail order prescription request ? NO If the refill is from a FAXED refill request what is the RX # listed on the fax? N/A Patients current insurance carrier is: Payor: [employer] [facility] [employer] / Plan: Aquto $25 [place] 1 / Product Type: HMO [id number] documented in this encounter Plan of Treatment Not on file documented as of this encounter Visit Diagnoses Not on filedocumented in this encounter Care Teams Navy Airspace Officer Relationship Specialty Start Date End Date Andi Burns MD [address] [place] [address] PCP - General Internal Medicine 12/18/19 Bryanna Lombardi PA-C [address] [address] Specialist Neurosurgery 03/31/24 Chance Askew PA-C [address] [address] Specialist Neurosurgery 03/31/24 Sherrell Richard MD [address] [address] Surgeon Neurosurgery 03/31/24 documented as of this encounter
--- OUTSIDE RECORDS SUMMARY | 2025-03-10 15:46 | XMS_ITS | Encounter Summary ---
Author Organization [facility] Address [address] [place] [address] Care Team Providers Care Production Quality Manager Name Role Phone Andi Burns MD Primary Care Provider [phone] Bryanna Lombardi PA-C Unavailable [phone] Chance Askew PA-C Unavailable [phone] Sherrell Richard MD Unavailable [phone] Reason for Visit * Reason Onset Date Comments APPOINTMENT 11/18/2021 Encounter Details Date Type Department Care Team Description 11/18/2021 Telephone Adult Medicine [address] [phone] Andi Burns MD [address] [place] [address] [phone] APPOINTMENT Social History Tobacco Use Types Packs/Day Years [...] suspected to have Coronavirus/COVID-19? No / Unsure 11/18/2021 10:13 AM EDT documented as of this encounter Miscellaneous Notes * Telephone Encounter - Marleny Moreno RN - 11/18/2021 11:18 AM EDT An appointment was scheduled for the pt to be seen in the office for a 4 month follow up as requested per Dr. Burns on 03/10/22 at 8:[address] Bustillo. * Telephone Encounter - Aura Villegas M.A. - 11/18/2021 11:[address] Burns wants to see pt back in 4 months. Does not have any openings Please help * Telephone Encounter - Robin Schwartz - 11/18/2021 10:50 AM EDT Follow up appointment not available. Please call patient to book-no open NON PUBLIC SLOTS. Appointment needed patient saw pcp for appointment today and wants to see patient in 4 months, nothing available, unable to book. documented in this encounter Plan of Treatment Not on file documented as of this encounter Visit Diagnoses Not on filedocumented in this encounter Care Teams Production Quality Manager Relationship Specialty Start Date End Date Andi Burns MD [address] [place] [address] PCP - General Internal Medicine 12/18/19 Bryanna Lombardi PA-C [address] [address] Specialist Neurosurgery 03/31/24 Chance Askew PA-C [address] [address] Specialist Neurosurgery 03/31/24 Sherrell Richard MD [address] [place] [address] [address] [place] [address] Surgeon Neurosurgery 03/31/24 documented as of this encounter
--- OUTSIDE RECORDS SUMMARY | 2025-03-10 15:46 | XMS_ITS | Encounter Summary ---
Author Organization [employer] [facility] Address [address] [place] [address] Care Team Providers Care Returned Goods Repairer Name Role Phone Chance Rand MD Primary Care Provider Unavail able Andi Burns MD Primary Care Provider Bryanna Lombardi PA-C Unavailable Chance Askew PA-C Unavailable Sherrell Richard MD Unavailable [phone] Encounter Details Date Type Department Care Team Description 05/14/2018 Hospital Medical Records [address] [place] [address] Lauryn Vo PA-C Social History Tobacco Use Types Packs/Day Years Used Date Smoking Tobacco: Former Cigarettes 0.5 30 Q uit: 05/13/2018 Smokeless Tobacco: Never Alcohol Use Standard Drinks/Week Comments No 0 (1 standard drink = 0.6 oz pur e alcohol) Sex Assigned at Date Recorded Female 09/30/2020 5:53 AM EDT Job Start Date Occupation Industry Not on file Not on file Not on file documented as of this encounter Plan of Treatment Not on file documented as of this encounter Visit Diagnoses Not on filedocumented in this encounter Care Teams Returned Goods Repairer Relationship Specialty Start Date End Date Chance Rand MD PCP - General Internal Medicine 06/14/15 12/17/19 Andi Burns MD [address] [place] [address] PCP - General Internal Medicine 12/18/19 Bryanna Lombardi PA-C [address] [address] Specialist Neurosurgery 03/31/24 Chance Askew PA-C [address] [address] Specialist Neurosurgery 03/31/24 Sherrell Richard MD [address] [address] Surgeon Neurosurgery 03/31/24 documented as of this encounter
--- OUTSIDE RECORDS SUMMARY | 2025-03-10 15:46 | XMS_ITS | Encounter Summary ---
Author Organization [facility] Address [address] [place] [address] Care Team Providers Care Firepot Operator And Tender Name Role Phone Andi Burns MD Primary Care Provider Bryanna Lombardi PA-C Unavailable [phone] Chance Askew PA-C Unavailable Sherrell Richard MD Unavailable [phone] Reason for Visit * Reason Comments E-prescribe Rx Request Encounter Details Date Type Department Care Team Description 10/30/2021 Refill Adult Medicine [address] [phone] Andi Burns MD [address] [place] [address] [phone] E-prescribe Rx Request Social History Tobacco Use [...] * Telephone Encounter - Yoana Zafar - 11/01/2021 2:05 PM EDT Antonio 07/15/21 Ov 11/18/21 Lab Results Component Value Date NA 141 07/12/2021 K 4.5 07/12/2021 CO2 30 07/12/2021 CL 106 07/12/2021 BUN 23 07/12/2021 CREAT 1.04 07/12/2021 GLU 136 07/12/2021 CA 9.1 07/12/2021 GFR 55 07/12/2021 * Telephone Encounter - Crissyharmony Baez - 11/01/2021 1:53 PM EDT \Patient would like script to be: E-PRESCRIBED/FAXED TO PHARMACY WHEN WAS THE PATIENT'S LAST APPOINTMENT IN ADULT MEDICINE? 07/15/2021 WHEN WAS THE LAST TIME THE PATIENT SAW THEIR PCP? Same as above Does patient have an upcoming appointment? Yes 11/18/2021 (THE MEDICATION REQUESTED IS ON THE MED [...] N/A Patients current insurance carrier is: Payor: [employer] [facility] [email or web address] / Plan: RemCare[employer] $25 YPSILANTI 1 / Product Type: HMO [id number] documented in this encounter Plan of Treatment Not on file documented as of this encounter Visit Diagnoses Not on filedocumented in this encounter Care Teams Firepot Operator And Tender Relationship Specialty Start Date End Date Andi Burns MD [address] [place] [address] PCP - General Internal Medicine 12/18/19 Bryanna Lombardi PA-C [address] [address] Specialist Neurosurgery 03/31/24 Chance Askew PA-C [address] [address] Specialist Neurosurgery 03/31/24 Sherrell Richard MD [address] [address] Surgeon Neurosurgery 03/31/24 documented as of this encounter
--- OUTSIDE RECORDS SUMMARY | 2025-03-10 15:46 | XMS_ITS | Encounter Summary ---
Author Organization [facility] Address [address] [place] [address] Care Team Providers Care Asparagus Cutter Name Role Phone Andi Burns MD Primary Care Provider [phone] Bryanna Lombardi PA-C Unavailable Chance Askew PA-C Unavailable [phone] Sherrell Richard MD Unavailable [phone] Reason for Visit * Reason Onset Date Comments My Chart Appointment 08/17/2022 er follow up 08/17/2022 Encounter Details Date Type Department Care Team Description 08/17/2022 Telephone Adult Medicine [address] [phone] Andi Burns MD [address] [place] [address] [phone] My Chart Appointment; er follow up Social History Tobacco Use Types Packs/Day Years [...] encounter Miscellaneous Notes * Telephone Encounter - Eliz Liao - 08/17/2022 10:58 AM EDT Noted. * Telephone Encounter - Jeanne Caceres - 08/17/2022 10:29 AM EDT FYI patient just scheduled an ER f/u for 08/25/22 with Carisa. documented in this encounter Plan of Treatment Not on file documented as of this encounter Visit Diagnoses Not on filedocumented in this encounter Care Teams Asparagus Cutter Relationship Specialty Start Date End Date Andi Burns MD [address] [place] [address] PCP - General Internal Medicine 12/18/19 Bryanna Lombardi PA-C [address] [address] Specialist Neurosurgery 03/31/24 Chance Askew PA-C [address] [address] Specialist Neurosurgery 03/31/24 Sherrell Richard MD [address] [address] Surgeon Neurosurgery 03/31/24 documented as of this encounter
--- OUTSIDE RECORDS SUMMARY | 2025-03-10 15:46 | XMS_ITS | Encounter Summary ---
Author Organization [facility] Address [address] [place] [address] Care Team Providers Care Kiss Mixer Name Role Phone Andi Burns MD Primary Care Provider [phone] Bryanna Lombardi PA-C Unavailable Chance Askew PA-C Unavailable Sherrell Richard MD Unavailable [phone] Reason for Visit * Reason Comments E-prescribe Rx Request Encounter Details Date Type Department Care Team Description 01/19/2022 Refill Adult Medicine [address] [phone] Andi Burns MD [address] [place] [address] [phone] E-prescribe Rx Request Social History Tobacco Use [...] Telephone Encounter - Wm Frias M.A. - 01/20/2022 1:39 PM EDT Lab Results Component Value Date NA 141 07/12/2021 K 4.5 07/12/2021 CO2 30 07/12/2021 CL 106 07/12/2021 BUN 23 07/12/2021 CREAT 1.04 07/12/2021 GLU 136 07/12/2021 CA 9.1 07/12/2021 GFR 55 07/12/2021 ANISHA w/PCP 11/18/2021 Next OV 03/10/2022 w/Dr. Bustillo * Telephone Encounter - Kenya Magdaleno - 01/20/2022 1:36 PM EDT Patient would like script to be: E-PRESCRIBED/FAXED TO PHARMACY WHEN WAS THE PATIENT'S LAST APPOINTMENT IN ADULT MEDICINE? 11/18/21 WHEN WAS THE LAST TIME THE PATIENT SAW THEIR PCP? Same as above Does patient have an upcoming appointment? Yes 03/10/22 (THE MEDICATION REQUESTED IS ON THE MED LIST ABOVE) All of the medications requested were on the CURRENT MEDS list Did you check the Pharmacy information above?: NO Patient wants: 30 -day supply Is this a mail order prescription request ? NO If the refill is from a FAXED refill request what is the RX # listed on the fax? N/A Patients current insurance carrier is: Payor: [employer] / Plan: PPO $25 BRONX [id number] / ProductType: PPO [id number] documented in this encounter Plan of Treatment Not on file documented as of this encounter Visit Diagnoses Diagnosis DM type 2 with diabetic peripheral neuropathy (HCC) Type II or unspecified type diabetes mellitus with neurological manifestations, not stated as uncontrolled documented in this encounter Care Teams Kiss Mixer Relationship Specialty Start Date End Date Andi Burns MD [address] [place] [address] PCP - General Internal Medicine 12/18/19 Bryanna Lombardi PA-C [address] [address] Specialist Neurosurgery 03/31/24 Chance Askew PA-C [address] [address] Specialist Neurosurgery 03/31/24 Sherrell Richard MD [address] [address] Surgeon Neurosurgery 03/31/24 documented as of this encounter
--- OUTSIDE RECORDS SUMMARY | 2025-03-10 15:46 | XMS_ITS | Encounter Summary ---
Author Organization [facility] Address [address] [place] [address] Care Team Providers Care Electrical Prospecting Supervisor Name Role Phone Chance Rand MD Primary Care Provider Unavail able Andi Burns MD Primary Care Provider [phone] Bryanna Lombardi PA-C Unavailable [phone] Chance Askew PA-C Unavailable [phone] Sherrell Richard MD Unavailable [phone] Reason for Visit * Reason Comments E-prescribe Rx Request Encounter Details Date Type Department Care Team Description 09/21/2019 Refill Adult Medicine [address] [phone] Sierra Bravo PA-C [address] [place] [address] E-prescribe Rx Request Social History Tobacco Use [...] encounter Miscellaneous Notes * Telephone Encounter - Aura Villegas M.A. - 09/22/2019 5:54 PM EDT Lab Results Component Value Date NA 138 03/27/2019 K 4.1 03/27/2019 CO2 28 03/27/2019 CL 103 03/27/2019 BUN 23 03/27/2019 CREAT 1.09 03/27/2019 GLU 120 06/27/2019 CA 9.6 03/27/2019 GFR 53 03/27/2019 * Telephone Encounter - Robin Schwartz - 09/22/2019 1:09 PM EDT Patient would like script to be: E-PRESCRIBED/FAXED TO PHARMACY WHEN WAS THE PATIENT'S LAST APPOINTMENT IN ADULT MEDICINE? 06/27/2019 WHEN WAS THE LAST TIME THE PATIENT SAW THEIR PCP? 05/27/18 Does patient have an upcoming appointment? Yes 09/26/2019 (THE MEDICATION REQUESTED IS ON THE MED [...] N/A Patients current insurance carrier is: Payor: [facility]/HMO FFS / Plan: [employer] DUNCAN TAMAYO HOST $20 / Product Type: HMO [id number] documented in this encounter Plan of Treatment Not on file documented as of this encounter Visit Diagnoses Not on filedocumented in this encounter Care Teams Electrical Prospecting Supervisor Relationship Specialty Start Date End Date Chance Rand MD PCP - General Internal Medicine 06/14/15 12/17/19 Andi Burns MD [address] [place] [address] PCP - General Internal Medicine 12/18/19 Bryanna Lombardi PA-C [address] [address] Specialist Neurosurgery 03/31/24 Chance Askew PA-C [address] [address] Specialist Neurosurgery 03/31/24 Sherrell Richard MD [address] [address] Surgeon Neurosurgery 03/31/24 documented as of this encounter
--- OUTSIDE RECORDS SUMMARY | 2025-03-10 15:46 | XMS_ITS | Encounter Summary ---
Author Organization [facility] Address [address] [place] [address] Care Team Providers Care Calenderer Name Role Phone Chance Rand MD Primary Care Provider Unavail able Andi Burns MD Primary Care Provider [phone] Bryanna Lombardi PA-C Unavailable [phone] Chance Askew PA-C Unavailable [phone] Sherrell Richard MD Unavailable [phone] Encounter Details Date Type Department Care Team Description 05/12/2018 Telephone Adult Medicine [address] [address] Chance Rand MD Social History Tobacco Use Types Packs/Day Years Used Date Smoking Tobacco: Every Day Cigarettes 0.5 30 Smokeless Tobacco: Never Alcohol Use Standard Drinks/Week Comments No 0 (1 standard drink = 0.6 oz pur e alcohol) Sex Assigned at Date Recorded Female 09/30/2020 5:53 AM E DT Job Start Date Occupation Industry Not on file Not on file Not on file documented as of this encounter Miscellaneous Notes * Telephone Encounter - Chance Rand MD - 05/12/2018 10:35 AM EST Patient had glucose of greater than 600 in [place] [facility] on 05/08. Please schedule follow-up, thank you documented in this encounter Plan of Treatment Not on file documented as of this encounter Visit Diagnoses Not on filedocumented in this encounter Care Teams Calenderer Relationship Specialty Start Date End Date Chance Rand MD PCP - General Internal Medicine 06/14/15 12/17/19 Andi Burns MD [address] [place] [address] PCP - General Internal Medicine 12/18/19 Bryanna Lombardi PA-C [address] [address] Specialist Neurosurgery 03/31/24 Chance Askew PA-C [address] [address] Specialist Neurosurgery 03/31/24 Sherrell Richard MD [address] [address] Surgeon Neurosurgery 03/31/24 documented as of this encounter
== END 2025-03-10 13:40 | disposition home or self-care (01) ==
LOC: HO.HMCH 12:53
DX: I10 Essential (primary) hypertension (principal); E78.00 Pure hypercholesterolemia, unspecified; E11.42 Type 2 diabetes mellitus with diabetic polyneuropathy; Z79.4 Long term (current) use of insulin; E03.9 Hypothyroidism, unspecified; G62.9 Polyneuropathy, unspecified

== ENCOUNTER 2025-04-08 12:48 | Outpatient (AMB) | payer OTHER, SELFPAY ==
--- NOTE | 2025-04-08 13:07 | A.OFFVIS_ITS ---
Vital Signs 04/08/25 13:11 Height 5 ft 7 in Weight 220 lb 7.396 oz BMI 34.5 BP 120/76 Blood Pressure Location Rt brachial Position Sitting Pulse 92 Pulse Source Pulse Oximeter Pulse Oximetry (%) 95 Oxygen Delivery Method Room Air Intake Visit Reasons: T2DM Intake Note: NEW Patient presents today to establish treatment for Type 2 Diabetes Mellitus: Last Diabetic eye exam was on: About 4 Months ago, [facility] Last Podiatry exam was on: Patient does not see a Food Service Tray Attendant Most recent HbA1c: 8.5%, 02/10/2025 Random Glucose: 168 mg/dL, 13:17 PM Medical Surgery Nurse Required: No Accompanied by: Self / Same As Patient Allergies No Known Allergies (No Known Allergies*) Allergy (Verified 04/08/25 13:07) HPI Comments Details: 59-year-old female with past medical history of diabetes presenting for diabetic consultation Medical history: hypertension, hypothyroid, hypercholesterolemia and neuropathy Diabetes diagnosis: age 34 Current medications Metformin 1000 mg twice daily Insulin 40 units daily Trulicity 0.75mg (she recently took her second dose) Uses a Dexcom device -her most recent sensor fell off. She has a traditional glucometer at home and notes blood glucose readings are now usually 200-220 High triglycerides: Placed on fenofibrate. She has been out of lipitor-sent today On ARB Sees [facility] Sees [address] [place] [address]-podiatry Neuropathy-on gabapentin ROS CONSTITUTIONAL: Denies weight loss, fever and chills. HEENT: Denies changes in vision and hearing. RESPIRATORY: Denies SOB and cough. CV: Denies palpitations and CP GI: Denies abdominal pain, nausea, vomiting and diarrhea. : Denies dysuria and urinary frequency. MSK: Denies new myalgia and joint pain. SKIN: Denies rash and pruritus. NEUROLOGICAL: Denies headache PSYCHIATRIC: Denies recent changes in mood. PHYSICAL EXAM: GENERAL: Alert and oriented x 3. NAD EYES: EOMI. Anicteric. HENT: Moist mucous membranes. No scleral icterus. No cervical lymphadenopathy. LUNGS: Clear to auscultation bilaterally. CARDIOVASCULAR: Regular rate and rhythm. No murmur. No JVD. ABDOMEN: Soft, non-tender +bs EXTREMITIES: No edema. Non-tender. +PT pulses SKIN: No rashes or lesions. Warm. NEUROLOGIC: No focal neurological deficits. CN II-XII grossly intact PSYCHIATRIC: Cooperative. Appropriate mood and affect [facility] Medical History Kidney stone on right side Kidney stone on left side Cervical dysplasia Hypertension Diabetes Surgical History (Updated 04/08/25 @ 13:13 by ANAYELI Mcqueen) Hx of eye surgery History of carpal tunnel release of both wrists H/O lithotripsy Hx of tubal ligation Family History Father Diabetes Mother Diabetes HTN (hypertension) Cirrhosis Social History Housing: Apartment Alcohol intake: never Patient Tobacco Use Status: Former Tobacco user Tobacco use type: Cigarette Cigarettes Per Day: 20 Years Smoked: 30 e-Cigarette/Vaping Use: Never Used Second Hand Smoke Exposure: Yes service: No Current occupational status: employed Hearing needs: No Vision needs: No Female Reproductive History Menstrual Age of Menarche: 14 Physical Exam Vital Signs: Last Vital Signs Pulse 92 04/08/25 13:11 BP 120/76 04/08/25 13:11 Pulse Ox 95 04/08/25 13:11 Oxygen Delivery Method Room Air 04/08/25 13:11 BMI result Body Mass Index 34.5 Results Reviewed Results Reviewed: Laboratory Last Values Glucose (Clinic) 168 mg/dL (60-115) H 04/08/25 13:17 Assessment & Plan Assessment & Plan (1) Diabetes: Code(s): E11.9 - Type 2 diabetes mellitus without complications Category: Medical Qualifiers: Diabetes mellitus complication detail: with polyneuropathy Diabetes mellitus complication status: with neurologic complications Diabetes mellitus residential insulin use: with residential use Diabetes mellitus type: type 2 Qualified Code(s): E11.42 - Type 2 diabetes mellitus with diabetic polyneuropathy; Z79.4 - prison (current) use of insulin Plan Diabetes, uncontrolled She will do her next two 0.75mg doses of trulicity then increase to 1.5mg weekly She will follow up in 5-6 weeks for A1C and assessement Treat hypoglycemia by rules of 15s Eye exam, podiatry UTD Medications: New Trulicity (dulaglutide) 1.5 mg (0.5 mL) subcut QWEEK 6 mL 3RF NS E11.42 - Type 2 diabetes mellitus with diabetic polyneuropathy, Z79.4 - prison (current) use of insulin Changed From blood-glucose sensor (Dexcom G7 Sensor device) As directed 1 ea 4RF E11.42 - Type 2 diabetes mellitus with diabetic polyneuropathy, Z79.4 - prison (current) use of insulin To Dexcom G7 Sensor (blood-glucose sensor) once every 15 days 6 ea 3RF NS E11.42 - Type 2 diabetes mellitus with diabetic polyneuropathy, Z79.4 - trigonometry tutor (current) use of insulin Refilled gabapentin 300 mg PO DAILY 90 caps 3RF E11.42 - Type 2 diabetes mellitus with diabetic polyneuropathy, Z79.4 - trigonometry tutor (current) use of insulin atorvastatin 20 mg PO DAILY 90 tabs 3RF E11.42 - Type 2 diabetes mellitus with diabetic polyneuropathy, Z79.4 - prison (current) use of insulin Discontinued dulaglutide (Trulicity) Discontinued Reason: Doctor's Order 0.75 mg (0.5 mL) subcut QWEEK 2 mL 0RF Coding Level of Care Code Est Pt Level 4 (98972) Diagnoses Type 2 diabetes mellitus with diabetic polyneuropathy, with long-term current use of insulin E11.42; Z79.4 Diabetes mellitus complication detail: with polyneuropathy Diabetes mellitus complication status: with neurologic complications Diabetes mellitus residential insulin use: with enamel sprayer use Diabetes mellitus type: type 2
[2025-04-08 13:11] VITALS: BP 120/76; PULSE 92; O2SAT 95; BMI 34.5
[2025-04-08 13:21] LABS: Glucose, Whole Blood 168 mg/dL (60-115)
--- OUTSIDE RECORDS SUMMARY | 2025-04-08 15:29 | XMS_ITS | Encounter Summary ---
Author Organization [facility] Address [address] [facility] [address] [place] [address] Phone Care Team Providers Care Gauge And Instrument Inspector Name Role Phone Pcp, Unknown Primary Care Provider Andi Mendoza MD Primary Care Provider + Andi Burns MD Primary Care Provider + Encounter Details Date Type Department Care Team (Latest Contact Info) Description 03/02/2020 Transcribe Orders Virtual Department [address] [place] [address] Surinder Magdaleno MD 8 [facility] [address] [place] [address] Encounter for laboratory testing for COVID-19 virus [...] 4:16 PM EDT) Specimen Source 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 SWAB (VALVE GRINDER) [facility] COVID Testing Status Sent to [facility] Micro Lab [facility] Other 03/07/2020 4:16 PM EDT 03/07/2020 5:43 PM EDT us Surinder Magdaleno MD LAB GENERAL ORDERABLES F inal Result [facility] [address] [place] [address] documented in this encounter Visit Diagnoses Diagnosis Encounter for laboratory testing for COVID-19 virus- Primary documented in this encounter Additional Health Concerns Infection Onset Date Last Indicated Resolved Time CoV-Exposed Comment:Recent close contact 03/02/2020 03/02/2020 03/16/2020 1:23 AM EDT documented as of this encounter Care Teams Gauge And Instrument Inspector Relationship Specialty Start Date End Date Pcp, Unknown PCP - General 12/15/19 03/02/20 Andi Burns MD [address] [place] [address] PCP - General Internal Medicine 03/03/20 03/16/22 Andi Burns MD [address] [place] [id number] PCP - General Internal Medicine 03/17/22 documented as of this encounter Additional Source Comments The information contained in this document represents components of the legal health record. It is not the complete legal health record.[facility]
--- OUTSIDE RECORDS SUMMARY | 2025-04-08 15:29 | XMS_ITS | Patient Health Record ---
[facility] Address [address] [facility] [place] [address] Care Team Providers Care Assistant Distribution Manager Name Role Phone RuthyearnestchaitanyaLydia Primary Care Provider Unavailab Carlos Enrique Lazo Unavailable [phone] Allergies No Known Allergies Results Component Value [...] Problem Acquired hammer toe of right foot (033190964103726 5) Other hammer toe(s) (acquired), right foot (M20.41) Active confirmed Problem Acquired hammer toe of left foot (485657781369189 3) Other hammer toe(s) (acquired), left foot (M20.42) Active confirmed Problem Type II diabetes mellitus without complication (933749717) Type 2 diabetes mellitus without complication (E11.9) Active confirmed Vital Signs Blood pressure diastolic 90 mm Hg 02/12/2025 Height 5ft 6in in 02/12/2025 Blood pressure systolic 145 mm Hg 02/12/2025 Weight 224 lbs 02/12/2025 BMI 36.15 kg/m2 02/12/2025 Procedures Procedure Date Ordered Date Performed Result Body Sit e 49245-VARYRRV NAIL, 6 OR MORE 11/12/2024 N/A 51011-ZJCYUNC NAIL, 6 OR MORE 02/12/2025 N/A Encounters Encounter Location Date Provider Diagnosis [facility] [place] [address] [place] [address] 11/12/2024 Carlos Enriqueisd EscuderoCrista Pain in right toe(s) M79.674 ; Tinea unguium B35.1 ; Pain in left toe(s) M79.675 ; Type 2 diabetes mellitus without complication E11.9 ; Other hammer toe(s) (acquired), right foot M20.41 and Other hammer toe(s) (acquired), left foot M20.42 [facility] [place] [address] [address] 02/12/2025 Carlos Enrique Tobin Pain in right toe(s) M79.674 ; Tinea unguium B35.1 ; Pain in left toe(s) M79.675 ; Type 2 diabetes mellitus without complication E11.9 ; Other hammer toe(s) (acquired), right foot M20.41 and Other hammer toe(s) (acquired), left foot M20.42 [facility] [place] [address] [place] [address] 08/19/2024 Carlos Enrique Tobin Assessments Encounter Date [...] Treatment Pending Test Test Name Order Date 86583-[id number] NAIL, 6 OR MORE 10/11/2012 45910-DUFMOFM NAIL, 6 OR MORE 12/31/2012 52392-FQYQGPZ NAIL, 6 OR MORE 11/12/2024 45822-YSFTZHA NAIL, 6 OR MORE 02/12/2025 18421-Ibiftxrx Plate 10/11/2012 66795-ZLCQ SKIN LESIONS, 2 TO 4 01/01/20 13 Next Appt Details Provider Name:Carlos Enrique Tobin , 05/25/2025 04:00:00 PM, [address] [facility], [facility] [address], [place], [address], Insurance Providers Payer Name Payer Address Payer Phone Subscriber Number Group Number Insured Name Patient Relationship to Insured Coverage Start Date Coverage End Date Blue Benefits [address] [address] [place] [address] [id number] Lisette Ortega Self - patient is the insured Medical (General) History Medical History History ICD Code diabetic thyroid disorder hypertension measles Anxiety Back,Hip,and Knee pain Cataracts High Blood Pressure Mumps Chicken pox Hypercholesterolemia Surgical History Surgery Date(Month/Year) eye procedure 10/16/24 tubal ligation 1989 kidney stones 2017 Thyroid removal Surgery 2019 Hospitalization History Reason Date(Month/Year) [facility] for high blood pressure 05/2012
--- OUTSIDE RECORDS SUMMARY | 2025-04-08 15:29 | XMS_ITS | Encounter Summary ---
Author Organization [facility] Address [address] [facility] [address] [place] [address] Phone Care Team Providers Care Nuclear Monitoring Technician Name Role Phone Pcp, Unknown Primary Care Provider Andi Mendoza MD Primary Care Provider + Andi Burns MD Primary Care Provider + Encounter Details Date Type Department Care Team (Latest Contact Info) Description 02/11/2020 Transcribe Orders Virtual Department [address] [place] [address] Surinder Magdaleno MD 8 [facility] [address] [place] [address] Encounter for laboratory testing for COVID-19 virus [...] 2:48 PM EDT) Specimen Source 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 SWAB (TREATING PLANT SUPERVISOR) [facility] COVID Testing Status Sent to [facility] Micro Lab [facility] Other 02/13/2020 2:48 PM EDT 02/13/2020 3:18 PM EDT us Surinder Magdaleno MD LAB GENERAL ORDERABLES F inal Result [facility] [address] [place] [address] documented in this encounter Visit Diagnoses Diagnosis Encounter for laboratory testing for COVID-19 virus- Primary documented in this encounter Additional Health Concerns Infection Onset Date Last Indicated Resolved Time CoV-Exposed Comment:Recent close contact 03/02/2020 03/02/2020 03/16/2020 1:23 AM EDT documented as of this encounter Care Teams Nuclear Monitoring Technician Relationship Specialty Start Date End Date Pcp, Unknown PCP - General 12/15/19 03/02/20 Andi Burns MD [address] [place] [id number] PCP - General Internal Medicine 03/03/20 03/16/22 Andi Burns MD [address] [place] [id number] PCP - General Internal Medicine 03/17/22 documented as of this encounter Additional Source Comments The information contained in this document represents components of the legal health record. It is not the complete legal health record.[facility]
--- OUTSIDE RECORDS SUMMARY | 2025-04-08 15:29 | XMS_ITS | Encounter Summary ---
Author Organization [facility] Address [address] [facility] [address] [place] [address] Phone Care Team Providers Care Door Machine Operator Name Role Phone Andi Burns MD Primary Care Provider + Andi Burns MD Primary Care Provider + Encounter Details Date Type Department Care Team (Latest Contact Info) Description 06/09/2020 Transcribe Orders Virtual Department [address] [place] [address] Surinder Magdaleno MD [address] [facility] [address] [place] [address] Encounter for laboratory testing for COVID-19 virus [...] PATIENT DID NOT ARRIVE FOR SCHEDULED TESTING. [facility] Comment:PROVIDER TO RESCHEDU LE NECESSARY. Symptomatic? NO [facility] Other 06/21/2020 7:53 AM EST 06/21/2020 8:00 PM EST us Surinder Magdaleno MD LAB GENERAL ORDERABLES F inal Result [facility] [address] [place] [address] documented in this encounter Visit Diagnoses Diagnosis Encounter for laboratory testing for COVID-19 virus- Primary documented in this encounter Care Teams Door Machine Operator Relationship Specialty Start Date End Date Andi Burns MD [address] [place] [phone] PCP - General Internal Medicine 03/03/20 03/16/22 Andi Burns MD [address] [place] [id number] PCP - General Internal Medicine 03/17/22 documented as of this encounter Additional Source Comments The information contained in this document represents components of the legal health record. It is not the complete legal health record.[facility]
--- OUTSIDE RECORDS SUMMARY | 2025-04-08 15:29 | XMS_ITS | Clinical Summary ---
Author Organization [facility] Address [address] [address] Phone Care Team Providers Care Sanitation Manager Name Role Phone Andi Burns MD [...] Date/Time Associated Diagnosis Comments BASIC METABOLIC PANEL (BMP) STAT 03/17/2022 7:15 AM EDT from Last 3 Months or Most Recently Relevant to Health Maintenance Results * (ABNORMAL) Basic metabolic panel (03/17/2022 7:15 AM EDT) SODIUM 141 133 - 146 mmol/L [facility] CHLORIDE 100 96 - 108 mmol/L [facility] POTASSIUM 4.8 3.3 - 5.1 mmol/L [facility] CO2 28 21 - 35 mmol/L [facility] BUN 23(H) 6 - 19 mg/dL [facility] CREATININE 0.90 0.5 - 1.5 mg/dL [facility] GLUCOSE 188(H) 70 - 99 mg/dL [facility] CALCIUM 9.4 8.4 - 10.3 mg/dL [facility] EGFR 75 >59 mL/min/1.7 3m2 [facility] Comment:Estimated glomerular filtration rate calculated using the CKD-EPI refit equation. ANION GAP 18 10 - 20 mmol/L [facility] Blood 03/17/2022 7:15 AM EDT 03/17/2022 7:22 AM EDT Anita David MD LAB BLOOD BKR ORDERA BLES Final Result [facility] [address] [place] [address] from Last 3 Months or Most Recently Relevant to Health Maintenance Insurance [facility] PPO EPO [facility] PPO EPO [facility] PPO EPO [facility] PPO [facility]PO [facility] PPO EPO [facility] PPO EPO [facility] PPO EPO [facility] PPO EPO [facility] PPO EPO Care Teams Sanitation Manager Relationship Specialty Start Date End Date Andi Burns MD [address] [place] [id number] PCP - General Internal Medicine 03/17/22 Additional Source Comments The information contained in this document represents components of the legal health record. It is not the complete legal health record.[facility]
== END 2025-04-08 13:39 | disposition home or self-care (01) ==
LOC: HO.ENCR 12:49
PROVIDERS: Visit Provider Internal Medicine
DX: E11.42 Type 2 diabetes mellitus with diabetic polyneuropathy (principal); Z79.4 Long term (current) use of insulin

== ENCOUNTER → 2025-04-08 12:48 | Outpatient (BNVA) | payer OTHER, SELFPAY | PROVIDERS: Visit Provider Internal Medicine | DX: E11.42 Type 2 diabetes mellitus with diabetic polyneuropathy (principal) | CPT/HCPCS: 82947 ==

== ENCOUNTER 2025-05-09 07:14 | Emergency (ER) | payer OTHER, SELFPAY ==
--- NOTE | ~2025-05-09 | CT_ITS ---
CLINICAL HISTORY: trauma CT head without contrast Comparison: CT/OK/SR - CT HEAD/BRAIN WO IV CON - 04/05/23 13:19 EDT Findings: No intra-axial mass, midline shift, hydrocephalus, or acute hemorrhage. No significant atrophy-like change or white matter disease. The visualized paranasal sinuses and mastoid air cells are normal. The orbits are within normal limits. There is no acute fracture. IMPRESSION: 1. No acute intracranial findings. This document has been electronically signed by: Layo Jin MD on 05/09/2025 09:25:08
--- NOTE | ~2025-05-09 | XR_ITS ---
CLINICAL HISTORY: trauma 3 views lumbar spine Comparison: None provided Findings: Normal alignment. No acute fractures or dislocation. There are degenerative disc changes at L4-L5. There is aortic calcification. IMPRESSION: No acute findings. This document has been electronically signed by: Naman Loza MD on 05/09/2025 08:51:30
--- NOTE | ~2025-05-09 | CT_ITS ---
CLINICAL HISTORY: trauma CT cervical spine without contrast Comparison: None provided Findings: Vertebral alignment is within normal limits. There is moderate to severe degenerative disc disease at C4-5 and C5-6 levels. No acute fractures or dislocations. Visualized intracranial contents are unremarkable. No cervical fluid collections or masses. Lung apices are clear. IMPRESSION: No acute findings. This document has been electronically signed by: Layo Jin MD on 05/09/2025 09:24:51
[2025-05-09 07:23] VITALS: BP 165/84; PULSE 90; RESP 18; TEMP 36.4; O2SAT 98; BMI 34.9
--- NOTE | 2025-05-09 07:33 | ED.FALL ---
HPI - Fall General Chief Complaint: Fall Stated Complaint: fall Time Seen by Provider: 05/09/25 07:28 Source: patient Mode of arrival: ambulatory Limitations: no limitations History of Present Illness HPI Narrative: This is a 59 years old female with a history of diabetes presented to the emergency room after a fall. She states that she slipped and fell in the ice this morning. She is complaining of headache and lower back pain MD complaint: fall Onset (ago): hour(s) (2) Fall from: standing Fall witnessed: no Place fall occurred: street Loss of consciousness: none Prolonged down time: no Related Data Previous Rx's ?Medication ?Instructions ?Recorded blood-glucose meter (OneTouch #1 ea 02/10/25 Verio Flex Meter) blood-glucose,inspector quality assurance,cont #1 ea 02/10/25 (Dexcom G7 Rag Cutting Machine Feeder) hydroxyzine HCl 25 mg tablet 25 mg PO BID #60 tabs 02/10/25 ibuprofen 800 mg tablet 800 mg PO Q8H PRN pain #30 tabs 02/10/25 lancets 30 gauge (OneTouch #100 ea 02/10/25 UltraSoft 2 Lancet) levothyroxine 137 mcg tablet 137 mcg PO DAILY #90 tabs 02/10/25 losartan 100 mg tablet 100 mg PO DAILY #90 tabs 02/10/25 metformin 1,000 mg tablet 1,000 mg PO BID 90 days #180 tabs 02/10/25 trazodone 50 mg tablet 50 mg PO .QHS PRN Sleep #30 tabs 02/10/25 blood sugar diagnostic (OneTouch #50 ea 02/12/25 Verio test strips) cholecalciferol (vitamin D3) 25 25 mcg PO DAILY #90 caps 03/10/25 mcg (1,000 unit) capsule fenofibrate 54 mg tablet 54 mg PO DAILY #90 tabs 03/10/25 insulin glargine 100 unit/mL (3 40 unit (0.4 mL) subcut QPM #3 mL 03/10/25 mL) subcutaneous pen (Lantus Solostar U-100 Insulin) Dexcom G7 Sensor (blood-glucose #6 ea 04/08/25 sensor) Trulicity 1.5 mg/0.5 mL 1.5 mg (0.5 mL) subcut QWEEK #6 mL 04/08/25 subcutaneous pen injector (dulaglutide) atorvastatin 20 mg tablet 20 mg PO DAILY #90 tabs 04/08/25 gabapentin 300 mg capsule 300 mg PO DAILY #90 caps 04/08/25 Allergies Allergy/AdvReac Type Severity Reaction Status Date / Time No Known Allergies (No Known Allergy Verified 05/09/25 07:25 Allergies*) Review of Systems Review of Systems: Yes all other systems are reviewed and are negative REPLACED BY [facility] Past Medical History Attestation statement: The following information was validated with the patient. REPLACED BY [facility] Narrative: Diabetes, hypertension Medical History Kidney stone on right side Kidney stone on left side Cervical dysplasia Hypertension Diabetes Surgical History Hx of eye surgery History of carpal tunnel release of both wrists H/O lithotripsy Hx of tubal ligation Family History Family History Father Diabetes Mother Diabetes HTN (hypertension) Cirrhosis Social History Social History Housing: Apartment Alcohol intake: never Patient Tobacco Use Status: Former Tobacco user Tobacco use type: Cigarette Cigarettes Per Day: 20 Years Smoked: 30 Smoked in Last 30 Days: No e-Cigarette/Vaping Use: Never Used Second Hand Smoke Exposure: Yes Use of substances other than those prescribed or required for medical reasons: No Advance Directives: No Advance Directives Information Provided: No Do you have a plan to hurt others: No Plan Patient : No service: No Current occupational status: employed Hearing needs: No Vision needs: No Physical Exam Exam: Exam: No acute distress looks well Vital Signs: Vital Signs: Last Vital Signs Temp 97.5 F 05/09/25 07:23 Pulse 90 05/09/25 07:23 Resp 18 05/09/25 07:23 BP 165/84 H 05/09/25 07:23 Pulse Ox 98 05/09/25 07:23 O2 Del Method Room Air 05/09/25 07:23 BMI result Body Mass Index 34.9 Const: General: cooperative Nutritional Appearance: well nourished Orientation/consciousness: patient oriented x3 Limitations: no limitations HEENT: Head: Yes normal to inspection Ears: hearing grossly normal bilaterally General nose exam: Normal external nose present Face and sinus: Yes normal facial exam Throat: Yes posterior oropharynx normal Neck: Neck: Yes normal visual inspection and Yes full ROM Chest: Chest palpation & inspection: normal inspection of the chest Resp: Effort & Inspection: normal respiratory effort Auscultation: clear to auscultation bilaterally Cardio: Jugular venous distension: no JVD Rate: regular rate Rhythm: regular rhythm GI: Inspection: Yes normal to inspection Palpation (GI): Soft to palpation, not firm, nontender and no guarding Auscultation: normal bowel sounds Skin: General skin exam: no rashes or lesions noted and elasticity normal Lesions: no lesions Rashes: no rashes Neuro: General: patient oriented x3 Extrem: General: Yes normal to inspection, Yes full ROM and Yes capillary refill normal Right lower extremity: normal to inspection Course Reevaluation(s) Reevaluation #1: CT SCAN HEAD C-SPINE NEGATIVE, X-RAY LS SPINE NEGATIVE ANTICIPATE DISCHARGE Time: 09:36 Medications Administered Discontinued Medications Generic Name Dose Route Start Last Admin Trade Name Freq PRN Reason Stop Dose Admin Acetaminophen 975 mg 05/09/25 07:33 05/09/25 07:42 Acetaminophen 325 Mg Tablet PO 05/09/25 07:34 975 mg ONCE ONE Administration Medical Decision Making Medical Decision Making [facility] Narrative: Patient presented to the emergency department after a fall complaining of headache, we will obtain CT scan of the head and C-spine also she is complaining of lower back pain we will obtain x-ray of the lumbar spine Differential Diagnosis Differential Diagnoses: The differential diagnosis associated with the presentation includes Concussion/head injury/cervical spine fracture/lumbar spine fracture Admission/Observation Consideration of admission/observation: Escalation of care including admission/observation considered Independent Interpretation I performed an independent interpretation of an: Plain X-Ray and CT Scan Interpretation: NO ACUTE DISEASE Radiology Impression Discussion of test interpretation with radiology: I have reviewed the radiologist's reading. Radiologist Impression: CT head without contrast Comparison: CT/MD/SR - CT HEAD/BRAIN WO IV CON - 04/05/23 13:19 EDT Findings: No intra-axial mass, midline shift, hydrocephalus, or acute hemorrhage. No significant atrophy-like change or white matter disease. The visualized paranasal sinuses and mastoid air cells are normal. The orbits are within normal limits. There is no acute fracture. IMPRESSION: 1. No acute intracranial findings. This document has been electronically signed by: Layo Jin MD on 05/09/2025 09:25:08 Chronic Conditions Patient?s care impacted by: Diabetes Discharge Plan Discharge Clinical Impression: Fall Qualifiers: Encounter type: initial encounter Qualified Code(s): W19.XXXA - Unspecified fall, initial encounter Head injury Qualifiers: Encounter type: initial encounter Qualified Code(s): S09.90XA - Unspecified injury of head, initial encounter Back contusion Qualifiers: Encounter type: initial encounter Laterality: unspecified laterality Qualified Code(s): S20.229A - Contusion of unspecified back wall of thorax, initial encounter Patient Disposition: Home, Self-Care Instructions: Head Injury (DC) Additional Instructions: FOLLOW-UP WITH YOUR PRIMARY CARE PHYSICIAN TAKE IBUPROFEN FOR PAIN RETURN IF WORSE Prescriptions: No Action (DME) blood-glucose meter [OneTouch Verio Flex meter] Misc See Rx Instructions .Route Qty: 1 0RF Rx Instructions: As directed; to check BGL TID (DME) lancets [OneTouch UltraSoft 2 Lancet] 30 gauge misc See Rx Instructions .Route Qty: 100 0RF Rx Instructions: As directed; to check BGL TID (DME) OneTouch Verio test strips Strip See Rx Instructions .Route Qty: 50 0RF Rx Instructions: As directed; TID Lantus Solostar U-100 Insulin 100 unit/mL (3 mL) insulin pen 40 unit subcut QPM Qty: 3 0RF cholecalciferol (vitamin D3) 25 mcg (1,000 unit) capsule 25 mcg PO DAILY Qty: 90 3RF fenofibrate 54 mg tablet 54 mg PO DAILY Qty: 90 0RF hydroxyzine HCl 25 mg tablet 25 mg PO BID Qty: 60 1RF trazodone 50 mg tablet 50 mg PO .QHS PRN (Reason: Sleep) Qty: 30 0RF metformin 1,000 mg tablet 1,000 mg PO BID 90 Days Qty: 180 0RF losartan 100 mg tablet 100 mg PO DAILY Qty: 90 0RF levothyroxine 137 mcg tablet 137 mcg PO DAILY Qty: 90 0RF ibuprofen 800 mg tablet 800 mg PO Q8H PRN (Reason: pain) Qty: 30 0RF (DME) Dexcom G7 Rag Cutting Machine Feeder Misc See Rx Instructions .Route Qty: 1 0RF Rx Instructions: As directed (DME) Dexcom G7 Sensor Device See Rx Instructions .Route Qty: 6 3RF Rx Instructions: once every 15 days Trulicity 1.5 mg/0.5 mL pen injector 1.5 mg subcut QWEEK Qty: 6 3RF atorvastatin 20 mg tablet 20 mg PO DAILY Qty: 90 3RF gabapentin 300 mg capsule 300 mg PO DAILY Qty: 90 3RF Referrals: Lydia Kuhn PA-C [Primary Care Provider, Internal Medicine] - 05/11/25 Stand Alone Forms: Work/School Release Print Language: Romanian
--- OUTSIDE RECORDS SUMMARY | 2025-05-09 07:46 | XMS_ITS | Clinical Summary ---
Author Organization [facility] Address [address] [place] [address] Phone Care Team Providers Care Help Desk Coordinator Name Role Phone Andi Burns MD Primary [...] on neck and head CTA done at [facility] May 2023. She has chronic history of headaches, I reviewed multiple head CTs spanning [id number] at [facility], which were done for headaches, they did not have any acute findings or aneurysms noted. 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 She also had brain MRI at that ED visit with no acute intracranial pathology. We called [facility] to request imaging report and CD [...] Type 2 diabetes mellitus wit h cataract ([facility]/HCC V24, [facility] V28) 06/30/2016 Cataract 06/30/2016 Proteinuria 06/28/2016 DM (diabetes mellitus), type 2 with renal complications ([facility] V24, [facility] V28) 06/28/2016 Diabetic neuropathy ([facility] V24, [facility] V28) 0 06/28/2016 Onychomycosis 08/06/2015 Diabetes mellitus type 2 wit h neurological manifestations ([facility] V24, [facility] V28) 08/06/2015 Hyperlipidemia 07/15/2015 Graves disease [...] (diabetes mellitus), type 2 with renal complications ([facility] V24, [facility] V28) 06/28/2016 DX:DM (diabetes mellitus), t ype 2 with renal complications ([facility]) Proteinuria 06/28/2016 DX:Proteinuria Diabetic neuropathy ([facility] V24, [facility] V28) 06/28/2016 DX:Diabetic neuropathy (HCC) Cataract 06/30/2016 DX:Cataract Type 2 diabetes mellitus wit h cataract ([facility] V24, [facility] V28) 06/30/2016 DX:Type 2 diabetes mellitus with cataract (HCC) Hyperlipidemia 07/15/2015 DX:Hyperlipidemi a Diabetes mellitus type 2 wit h neurological manifestations ([facility] V24, [facility] V28) 08/06/2015 DX:Diabetes mellitus type 2 with neurological manifestations (HCC) Family History Medical History Relation Name Comments Diabetes Father Cataracts Maternal Grandmother Other: Other Mother cirrhosis, bloo s transfusion Relation Name Status Comments Father Maternal Grandmother Mother Social History Tobacco Use Types Packs/Day Years Used Date Smoking Tobacco: Former Cigarettes 0.5 Q uit: 05/13/2018 Smokeless Tobacco: Never Alcohol [...] 09/02/2025 2:00 PM EDT Office Visit Nephrology [address] [phone] Mao Duron MD [address] [facility] [address] [place] [address] Health Maintenance Due Date Last Done Comments [...] * Annual BMP Blood Test (09/18/2023) Pathologist [facility] Annual BMP Blood Test Abstracted Historical Provider HEALTH MAINTENANCE Final Result * (ABNORMAL) Hemoglobin A1c (09/18/2023) Pathologist [facility] Hemoglobin A1C 9.3(A) <=6.5 % Blood Venous blood specimen / Unknown Historical Provider LAB BLOOD ORDERABLES Arielle l [...] (09/17/2023) Urine Albumin Creatinine Ratio Abstracted Result [facility] Provider HEALTH MAINTENANCE Final Result * Cervical Cancer Screening: HPV (03/23/2022) Cervical Cancer Screening: HPV Abstracted, Not detected Result [facility] Provider HEALTH MAINTENANCE Final Result * SCREENING [...] Most Recently Relevant to Health Maintenance [place] [address] [place] [address] Care Teams Help Desk Coordinator Relationship Specialty Start Date End Date Andi Burns MD [address] [place] [address] PCP - General Internal Medicine 04/18/24
[2025-05-09 09:45] VITALS: BP 146/92; PULSE 74; RESP 15; TEMP 36.7; O2SAT 98
[2025-05-09 11:03] VITALS: BP 146/92; PULSE 74; RESP 15; TEMP 36.7; O2SAT 98
== END 2025-05-09 11:03 | disposition home or self-care (01) ==
PROVIDERS: Emergency Provider Emergency Medicine
DX: S09.90XA Unspecified injury of head, initial encounter (principal); S20.229A Contusion of unspecified back wall of thorax, initial encounter; R51.9 Headache, unspecified; M54.50 Low back pain, unspecified; M54.2 Cervicalgia; W00.0XXA Fall on same level due to ice and snow, initial encounter; Y93.01 Activity, walking, marching and hiking; Y92.9 Unspecified place or not applicable; Y99.8 Other external cause status
CPT/HCPCS: 70450; 72100; 72125; 99284

== ENCOUNTER → 2025-05-09 07:32 | Outpatient (BNV) | payer OTHER, SELFPAY | PROVIDERS: Emergency Provider Emergency Medicine; Visit Provider Specialist | DX: Z04.3 Encounter for examination and observation following other accident (principal) | CPT/HCPCS: 70450; 72100; 72125 ==

== ENCOUNTER 2025-05-13 13:57 | Outpatient (AMB) | payer OTHER, SELFPAY ==
[2025-05-13 14:00] VITALS: BP 130/80; BMI 35.2
--- NOTE | 2025-05-13 14:00 | MHC.OFFVIS ---
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 Operator Plasma Arc Required: No Accompanied by: Self / Same As Patient Allergies No Known Allergies (No Known Allergies*) Allergy (Verified 05/13/25 14:00) HPI Comments Details: 59-year-old female with past medical history of diabetes presenting for diabetic consultation Medical history: hypertension, hypothyroid, hypercholesterolemia and neuropathy Diabetes diagnosis: age 34 Current medications Metformin 1000 mg twice daily Insulin 40 units daily Trulicity 1.5mg weekly-slight nausea A1C today is 7.6% down from 8.5% on 02/10 Uses a Dexcom device -96 % use, GMI 7.3%, TGT 64% high 36% High triglycerides: Placed on fenofibrate. She has been out of lipitor-sent today On ARB Sees [facility] Sees [address] [place] [address]-podiatry Neuropathy-on gabapentin ROS CONSTITUTIONAL: Denies weight loss, fever and chills. HEENT: Denies changes in vision and hearing. RESPIRATORY: Denies SOB and cough. CV: Denies palpitations and CP GI: Denies abdominal pain, nausea, vomiting and diarrhea. : Denies dysuria and urinary frequency. MSK: Denies new myalgia and joint pain. SKIN: Denies rash and pruritus. NEUROLOGICAL: Denies headache PSYCHIATRIC: Denies recent changes in mood. PHYSICAL EXAM: GENERAL: Alert and oriented x 3. NAD EYES: EOMI. Anicteric. HENT: Moist mucous membranes. No scleral icterus. No cervical lymphadenopathy. LUNGS: Clear to auscultation bilaterally. CARDIOVASCULAR: Regular rate and rhythm. No murmur. No JVD. ABDOMEN: Soft, non-tender +bs EXTREMITIES: No edema. Non-tender. +PT pulses SKIN: No rashes or lesions. Warm. NEUROLOGIC: No focal neurological deficits. CN II-XII grossly intact PSYCHIATRIC: Cooperative. Appropriate mood and affect [facility] Medical History Kidney stone on right side Kidney stone on left side Cervical dysplasia Hypertension Diabetes Surgical History Hx of eye surgery History of carpal tunnel release of both wrists H/O lithotripsy Hx of tubal ligation Family History Father Diabetes Mother Diabetes HTN (hypertension) Cirrhosis Social History Housing: Apartment Alcohol intake: never Patient Tobacco Use Status: Former Tobacco user Tobacco use type: Cigarette Cigarettes Per Day: 20 Years Smoked: 30 e-Cigarette/Vaping Use: Never Used Second Hand Smoke Exposure: Yes service: No Current occupational status: employed Hearing needs: No Vision needs: No Female Reproductive History Menstrual Age of Menarche: 14 Physical Exam Vital Signs: Last Vital Signs BP 130/80 05/13/25 14:00 Oxygen Delivery Method Room Air 05/13/25 14:00 BMI result Body Mass Index 35.2 Results AMB Hemoglobin A1c AMB Hemoglobin A1c 7.6 % Last Edit by ANAYELI Mcqueen on 05/13/25 14:15 Assessment & Plan Assessment & Plan (1) Diabetes: Code(s): E11.9 - Type 2 diabetes mellitus without complications Category: Medical Qualifiers: Diabetes mellitus type: type 2 Diabetes mellitus ad terminal makeup operator insulin use: with ad terminal makeup operator use Diabetes mellitus complication status: with neurologic complications Diabetes mellitus complication detail: with polyneuropathy Qualified Code(s): E11.42 - Type 2 diabetes mellitus with diabetic polyneuropathy; Z79.4 - half-way (current) use of insulin Plan 59 year old for diabetes follow up Improved but still suboptimal A1C [facility] She will reach out in a month to provide GMI and progress I will see her in 3 months for A1C or sooner as needed Treat any hypoglycemia by rules of 15s. Orders: Orders AMB Hemoglobin A1c Today E11.42 - Type 2 diabetes mellitus with diabetic polyneuropathy, Z79.4 - intermodal customer service (current) use of insulin Medications: New Mounjaro (tirzepatide) transitioning from 1.5mg of trulicity 5 mg (0.5 mL) subcut QWEEK 2 mL 3RF NS Discontinued Trulicity (dulaglutide) Discontinued Reason: Doctor's Order 1.5 mg (0.5 mL) subcut QWEEK 6 mL 3RF NS E11.42 - Type 2 diabetes mellitus with diabetic polyneuropathy, Z79.4 - half-way (current) use of insulin Coding Level of Care Code Est Pt Level 4 (36380) Diagnoses Type 2 diabetes mellitus with diabetic polyneuropathy, with long-term current use of insulin E11.42; Z79.4 Diabetes mellitus type: type 2 Diabetes mellitus ad terminal makeup operator insulin use: with assisted use Diabetes mellitus complication status: with neurologic complications Diabetes mellitus complication detail: with polyneuropathy
[2025-05-13 14:09] LABS: Glucose, Whole Blood 235 mg/dL (60-115)
--- OUTSIDE RECORDS SUMMARY | 2025-05-13 21:41 | XMS_ITS | Encounter Summary ---
Author Organization [facility] Address [address] [place] [address] Phone Care Team Providers Care Sponsorship Manager Name Role Phone Pcp, Unknown Primary Care Provider Andi Mendoza MD Primary Care Provider + Andi Burns MD Primary Care Provider + Encounter Details Date Type Department Care Team (Latest Contact Info) Description 03/02/2020 Transcribe Orders Virtual Department [address] [place] [address] Surinder Magdaleno MD [address] [facility] [address] [place] [address] Encounter for laboratory testing for COVID-19 virus [...] 4:16 PM EDT) Specimen Source 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 SWAB (LADLE LINER HELPER) [facility] COVID Testing Status Sent to [facility] Micro Lab [facility] Other 03/07/2020 4:16 PM EDT 03/07/2020 5:43 PM EDT us Surinder Magdaleno MD LAB GENERAL ORDERABLES F inal Result [facility] [address] [place] [address] documented in this encounter Visit Diagnoses Diagnosis Encounter for laboratory testing for COVID-19 virus- Primary documented in this encounter Additional Health Concerns Infection Onset Date Last Indicated Resolved Time CoV-Exposed Comment:Recent close contact 03/02/2020 03/02/2020 03/16/2020 1:23 AM EDT documented as of this encounter Care Teams Sponsorship Manager Relationship Specialty Start Date End Date Pcp, Unknown PCP - General 12/15/19 03/02/20 Andi Burns MD [address] [place] [address] PCP - General Internal Medicine 03/03/20 03/16/22 Andi Burns MD [address] [place] [phone] PCP - General Internal Medicine 03/17/22 documented as of this encounter Additional Source Comments The information contained in this document represents components of the legal health record. It is not the complete legal health record.[facility]
--- OUTSIDE RECORDS SUMMARY | 2025-05-13 21:41 | XMS_ITS | Encounter Summary ---
Author Organization [facility] Address [address] [place] [address] Phone Care Team Providers Care Carbon Dioxide Operator Name Role Phone Pcp, Unknown Primary Care Provider Andi Mendoza MD Primary Care Provider + Andi Burns MD Primary Care Provider + Encounter Details Date Type Department Care Team (Latest Contact Info) Description 02/11/2020 Transcribe Orders Virtual Department [address] [place] [address] Surinder Magdaleno MD [address] [facility] [address] [place] [address] Encounter for laboratory testing for COVID-19 virus [...] 2:48 PM EDT) Specimen Source 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 SWAB (WEIGHER AND CRUSHER) [facility] COVID Testing Status Sent to [facility] Micro Lab [facility] Other 02/13/2020 2:48 PM EDT 02/13/2020 3:18 PM EDT us Surinder Magdaleno MD LAB GENERAL ORDERABLES F inal Result [facility] [address] [place] [address] documented in this encounter Visit Diagnoses Diagnosis Encounter for laboratory testing for COVID-19 virus- Primary documented in this encounter Additional Health Concerns Infection Onset Date Last Indicated Resolved Time CoV-Exposed Comment:Recent close contact 03/02/2020 03/02/2020 03/16/2020 1:23 AM EDT documented as of this encounter Care Teams Carbon Dioxide Operator Relationship Specialty Start Date End Date Pcp, Unknown PCP - General 12/15/19 03/02/20 Andi Burns MD [address] [place] [phone] PCP - General Internal Medicine 03/03/20 03/16/22 Andi Burns MD [address] [place] [phone] PCP - General Internal Medicine 03/17/22 documented as of this encounter Additional Source Comments The information contained in this document represents components of the legal health record. It is not the complete legal health record.[facility]
--- OUTSIDE RECORDS SUMMARY | 2025-05-13 21:42 | XMS_ITS | Clinical Summary ---
Author Organization [facility] Address [address] [place] [address] Phone Care Team Providers Care Inspector Multifocal Lens Name Role Phone Andi Burns MD Primary Care Provider [phone] Allergies No known active allergies Medications atorvastatin [...] on neck and head CTA done at [facility] May 2023. She has chronic history of headaches, I reviewed multiple head CTs spanning 3277-6627 [place] [facility] which were done for headaches, they did not have any acute findings or aneurysms noted. 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 She also had brain MRI at that ED visit with no acute intracranial pathology. We called [facility] to request imaging report and CD [...] Kidney stones 07/31/2016 Type 2 diabetes mellitus with cataract 7 Cataract 06/30/2016 Proteinuria 06/28/2016 DM (diabetes mellitus), type 2 with renal compli cations 06/28/2016 Diabetic neuropathy 06/28/2016 Onychomycosis 08/06/2015 Diabetes mellitus type 2 with neurological manif estations 08/06/2015 Hyperlipidemia 07/15/2015 Graves disease 07/15/2015 Overview [...] (diabetes mellitus), type 2 with renal complications ([facility] V24, [facility] V28) 06/28/2016 DX:DM (diabetes mellitus), t ype 2 with renal complications (HCC) Proteinuria 06/28/2016 DX:Proteinuria Diabetic neuropathy ([facility] V24, [facility] V28) 06/28/2016 DX:Diabetic neuropathy (HCC) Cataract 06/30/2016 DX:Cataract Type 2 diabetes mellitus wit h cataract ([facility] V24, [facility] V28) 06/30/2016 DX:Type 2 diabetes mellitus with cataract (HCC) Hyperlipidemia 07/15/2015 DX:Hyperlipidemi a Diabetes mellitus type 2 wit h neurological manifestations (CMS/HCC V24, CMS/HCC V28) 08/06/2015 DX:Diabetes mellitus type 2 with [...] on file Sexual Orientation Not on file Last Filed [...] 09/02/2025 2:00 PM EDT Office Visit Nephrology [facility] [address] [place] [phone] Mao Duron MD [address] [facility] [address] [place] [address] Health Maintenance Due Date Last Done Comments [...] * Annual BMP Blood Test (09/18/2023) Pathologist [facility] Annual BMP Blood Test Abstracted [facility] Provider HEALTH MAINTENANCE Final Result * (ABNORMAL) Hemoglobin A1c (09/18/2023) [facility] Hemoglobin A1C 9.3(A) <=6.5 % Blood Venous blood specimen / Unknown [facility] Provider LAB BLOOD ORDERABLES Arielle l Result * (ABNORMAL) Lipid panel (09/18/2023) [facility] LDL/HDL Ratio 4 0 - 4 Triglycerides 282(A) 0 - 150 mg/dL Cholesterol 173 0 - 200 mg/dL HDL 45 >=40 mg/dL LDL Cholesterol 72 0 - 100 mg/dL Blood Venous blood specimen / Unknown [facility] Provider LAB BLOOD ORDERABLES Arielle l Result * Urine Albumin Creatinine Ratio (09/17/2023) Pathologist [facility] Urine Albumin Creatinine Ratio Abstracted us Historical Provider HEALTH MAINTENANCE Final Result * Cervical Cancer Screening: HPV (03/23/2022) Pathologist [facility] Cervical Cancer Screening: HPV Abstracted, Not detected Result [facility] Historical Provider [facility] Final Result * SCREENING MAMMOGRAPHY BI [...] Breast cancer risk category Low (<15%) Result [facility] Andi Burns MD IMG XR PROCEDURES Final Result * Hepatitis C Screening (11/01/2017) Pathologist [facility] Hepatitis C Screening Abstracted Historical Provider HEALTH MAINTENANCE Final Result * Colonoscopy (05/25/2017) Colonoscopy Abstracted, Normal Anatomical Region Laterality Modality Other Historical Provider HEALTH MAINTENANCE Final Result from Last 3 Months or Most Recently Relevant to Health Maintenance Insurance [facility] Care Teams Inspector Multifocal Lens Relationship Specialty Start Date End Date Andi Burns MD [address] [place], [place] PCP - General Internal Medicine 04/18/24
--- OUTSIDE RECORDS SUMMARY | 2025-05-13 21:42 | XMS_ITS | Patient Health Record ---
Author Organization [facility] Address [address] [facility] [place] [address] Care Team Providers Care Agile Scrum Coach Name Role Phone RuthyLydia scott Primary Care Provider Unavailab Carlos Enrique Lazo Unavailable [phone] Allergies No Known Allergies Results Component Value [...] Problem Acquired hammer toe of right foot (345556049104546 5) Other hammer toe(s) (acquired), right foot (M20.41) Active confirmed Problem Acquired hammer toe of left foot (429083681715500 3) Other hammer toe(s) (acquired), left foot (M20.42) Active confirmed Problem Type II diabetes mellitus without complication (916343935) Type 2 diabetes mellitus without complication (E11.9) Active confirmed Vital Signs Blood pressure diastolic 90 mm Hg 02/12/2025 Height 5ft 6in in 02/12/2025 Blood pressure systolic 145 mm Hg 02/12/2025 Weight 224 lbs 02/12/2025 BMI 36.15 kg/m2 02/12/2025 Procedures Procedure Date Ordered Date Performed Result Body Sit e 66021-DFWLSED NAIL, 6 OR MORE 11/12/2024 N/A 75181-[id number] NAIL, 6 OR MORE 02/12/2025 N/A Encounters Encounter Location Date Provider Diagnosis [facility] [address] [place] [phone] 11/12/2024 Carlos Enriquesid EscuderoCrista Pain in right toe(s) M79.674 ; Tinea unguium B35.1 ; Pain in left toe(s) M79.675 ; Type 2 diabetes mellitus without complication E11.9 ; Other hammer toe(s) (acquired), right foot M20.41 and Other hammer toe(s) (acquired), left foot M20.42 [facility] [address] [address] 02/12/2025 Carlos Enrique Tobin Pain in right toe(s) M79.674 ; Tinea unguium B35.1 ; Pain in left toe(s) M79.675 ; Type 2 diabetes mellitus without complication E11.9 ; Other hammer toe(s) (acquired), right foot M20.41 and Other hammer toe(s) (acquired), left foot M20.42 [facility] [address] [place] [address] 08/19/2024 Carlos Enrique Tobin Assessments Encounter Date [...] Treatment Pending Test Test Name Order Date 61368-[id number] NAIL, 6 OR MORE 10/11/2012 [id number] NAIL, 6 OR MORE 12/31/2012 [id number] NAIL, 6 OR MORE 11/12/2024 [id number] NAIL, 6 OR MORE 02/12/2025 14967-Brrufapt Plate 10/11/2012 28372-AOTX SKIN LESIONS, 2 TO 4 01/01/20 13 Next Appt Details Provider Name:Carlos Enrique Tobin , 05/25/2025 04:00:00 PM, [address] [facility], [facility] [address], [place], [address], Insurance Providers Payer Name Payer Address Payer Phone Subscriber Number Group Number Insured Name Patient Relationship to Insured Coverage Start Date Coverage End Date [employer] Benefits [address] [address] [place] [address] [id number] Lisette Ortega Self - patient is the insured Medical (General) History Medical History History ICD Code diabetic thyroid disorder hypertension measles Anxiety Back,Hip,and Knee pain Cataracts High Blood Pressure Mumps Chicken pox Hypercholesterolemia Surgical History Surgery Date(Month/Year) eye procedure 10/16/24 tubal ligation 1989 kidney stones 2017 Thyroid removal Surgery 2019 Hospitalization History Reason Date(Month/Year) [facility] 05/2012
--- OUTSIDE RECORDS SUMMARY | 2025-05-13 21:42 | XMS_ITS | Encounter Summary ---
Author Organization [facility] Address [address] [facility] [address] [place] [address] Phone Care Team Providers Care Pc Installation Engineer Name Role Phone Andi Burns MD Primary Care Provider + Andi Burns MD Primary Care Provider + Encounter Details Date Type Department Care Team (Latest Contact Info) Description 06/09/2020 Transcribe Orders Virtual Department [address] [place] [address] Surinder Magdaleno MD [address] [facility] [address] [place] [address] Encounter for laboratory testing for COVID-19 virus [...] PATIENT DID NOT ARRIVE FOR SCHEDULED TESTING. [facility] Comment:PROVIDER TO RESCHEDU LE NECESSARY. Symptomatic? NO [facility] Other 06/21/2020 7:53 AM EST 06/21/2020 8:00 PM EST us Surinder Magdaleno MD LAB GENERAL ORDERABLES F inal Result [facility] [address] [place] [address] documented in this encounter Visit Diagnoses Diagnosis Encounter for laboratory testing for COVID-19 virus- Primary documented in this encounter Care Teams Pc Installation Engineer Relationship Specialty Start Date End Date Andi Burns MD [address] [place] [address] PCP - General Internal Medicine 03/03/20 03/16/22 Andi Burns MD [address] [place] [address] PCP - General Internal Medicine 03/17/22 documented as of this encounter Additional Source Comments The information contained in this document represents components of the legal health record. It is not the complete legal health record.[facility]
--- OUTSIDE RECORDS SUMMARY | 2025-05-13 21:42 | XMS_ITS | Clinical Summary ---
Author Organization [facility] Address [address] [address] Phone Care Team Providers Care Digital Imager Name Role Phone Andi Burns MD Primary [...] EDT) SODIUM 141 133 - 146 mmol/L [facility] CHLORIDE 100 96 - 108 mmol/L [facility] POTASSIUM 4.8 3.3 - 5.1 mmol/L [facility] CO2 28 21 - 35 mmol/L [facility] BUN 23(H) 6 - 19 mg/dL [facility] CREATININE 0.90 0.5 - 1.5 mg/dL [facility] GLUCOSE 188(H) 70 - 99 mg/dL [facility] CALCIUM 9.4 8.4 - 10.3 mg/dL [facility] EGFR 75 >59 mL/min/1.7 3m2 [facility] Comment:Estimated glomerular filtration rate calculated using the CKD-EPI refit equation. ANION GAP 18 10 - 20 mmol/L [facility] Blood 03/17/2022 7:15 AM EDT 03/17/2022 7:22 AM EDT Anita David MD LAB BLOOD BKR ORDERA BLES Final Result [facility] [address] [place] [address] from Last 3 Months or Most Recently Relevant to Health Maintenance Insurance [facility] PPO EPO [facility] PPO EPO [facility] PPO EPO [facility] PPO EPO [facility] PPO EPO [facility] PPO EPO [facility] PPO EPO [facility] PPO EPO [facility] PPO EPO Care Teams Digital Imager Relationship Specialty Start Date End Date Andi Burns MD [address] [place] [address] PCP - General Internal Medicine 03/17/22 Additional Source Comments The information contained in this document represents components of the legal health record. It is not the complete legal health record.[facility]
== END 2025-05-13 14:24 | disposition home or self-care (01) ==
LOC: HO.ENCR 13:58
PROVIDERS: Visit Provider Internal Medicine
DX: E11.42 Type 2 diabetes mellitus with diabetic polyneuropathy (principal); Z79.4 Long term (current) use of insulin

== ENCOUNTER → 2025-05-13 13:57 | Outpatient (BNVA) | payer OTHER, SELFPAY | PROVIDERS: Visit Provider Internal Medicine | DX: E11.42 Type 2 diabetes mellitus with diabetic polyneuropathy (principal); Z79.4 Long term (current) use of insulin; Z79.85 Long-term (current) use of injectable non-insulin antidiabetic drugs | CPT/HCPCS: 82947; 83036 ==

== ENCOUNTER 2025-05-15 15:42 | Outpatient (REF) | payer OTHER, SELFPAY ==
--- OUTSIDE RECORDS SUMMARY | 2025-05-15 20:26 | XMS_ITS | Encounter Summary ---
Author Organization [facility] Address [address] [facility] [address] [place] [address] Phone Care Team Providers Care Stump Blower Name Role Phone Andi Burns MD Primary Care Provider + Andi Burns MD Primary Care Provider + Encounter Details Date Type Department Care Team (Latest Contact Info) Description 06/09/2020 Transcribe Orders Virtual Department [address] [place] [address] Surinder Magdaleno MD [address] [facility] [address] [place] [address] Encounter for laboratory testing for COVID-19 virus [...] PATIENT DID NOT ARRIVE FOR SCHEDULED TESTING. [facility] Comment:PROVIDER TO RESCHEDU LE NECESSARY. Symptomatic? NO [facility] Other 06/21/2020 7:53 AM EST 06/21/2020 8:00 PM EST us Surinder Magdaleno MD LAB GENERAL ORDERABLES F inal Result [facility] [address] [place] [address] documented in this encounter Visit Diagnoses Diagnosis Encounter for laboratory testing for COVID-19 virus- Primary documented in this encounter Care Teams Stump Blower Relationship Specialty Start Date End Date Andi Burns MD [address] [place] [address] PCP - General Internal Medicine 03/03/20 03/16/22 Andi Burns MD [address] [place] [address] PCP - General Internal Medicine 03/17/22 documented as of this encounter Additional Source Comments The information contained in this document represents components of the legal health record. It is not the complete legal health record.[facility]
--- OUTSIDE RECORDS SUMMARY | 2025-05-15 20:26 | XMS_ITS | Clinical Summary ---
Author Organization [facility] Address [address] [place] [address] Phone Care Team Providers Care Sed Special Education Teacher Name Role Phone Andi Burns MD Primary Care Provider [phone] Allergies No known active allergies Medications atorvastatin [...] headaches, I reviewed multiple head CTs spanning 1518-3046 [place] [facility], which were done for headaches, they did [...] (diabetes mellitus), type 2 with renal complications ([facility] V24, [facility] V28) 06/28/2016 DX:DM (diabetes mellitus), t ype 2 with renal complications (HCC) Proteinuria 06/28/2016 DX:Proteinuria Diabetic neuropathy ([facility] V24, [facility] V28) 06/28/2016 DX:Diabetic neuropathy (HCC) Cataract 06/30/2016 DX:Cataract Type 2 diabetes mellitus wit h cataract ([facility] V24, [facility] V28) 06/30/2016 DX:Type 2 diabetes mellitus with [...] 09/02/2025 2:00 PM EDT Office Visit Nephrology [facility] [address] [place] [phone] Mao Duron MD 100 [facility] [address] [place] [address] Health Maintenance Due Date Last [...] * Annual BMP Blood Test (09/18/2023) Pathologist [facility] Annual BMP Blood Test Abstracted [facility] Provider HEALTH MAINTENANCE Final Result * (ABNORMAL) Hemoglobin A1c (09/18/2023) [facility] Hemoglobin A1C 9.3(A) <=6.5 % Blood Venous blood specimen / Unknown [facility] Provider LAB BLOOD ORDERABLES Arielle l Result * (ABNORMAL) Lipid panel (09/18/2023) [facility] LDL/HDL Ratio 4 0 - 4 Triglycerides 282(A) 0 - 150 mg/dL Cholesterol 173 0 - 200 mg/dL HDL 45 >=40 mg/dL LDL Cholesterol 72 0 - 100 mg/dL Blood Venous blood specimen / Unknown [facility] Provider LAB BLOOD ORDERABLES Arielle l Result * Urine Albumin Creatinine Ratio (09/17/2023) Pathologist [facility] Urine Albumin Creatinine Ratio Abstracted us Historical Provider HEALTH MAINTENANCE Final Result * Cervical Cancer Screening: HPV (03/23/2022) Pathologist [facility] Cervical Cancer Screening: HPV Abstracted, Not detected Result [facility] Historical Provider [facility] Final Result * SCREENING MAMMOGRAPHY BI 2-VIEW [...] Result * Hepatitis C Screening (11/01/2017) Pathologist [facility] Hepatitis C Screening Abstracted Historical Provider HEALTH MAINTENANCE Final Result * Colonoscopy (05/25/2017) Colonoscopy Abstracted, Normal Anatomical Region Laterality Modality Other Historical Provider HEALTH MAINTENANCE Final Result from Last 3 Months or Most Recently Relevant to Health Maintenance Insurance [facility] Care Teams Sed Special Education Teacher Relationship Specialty Start Date End Date Andi Burns MD [address] [place], [place] PCP - General Internal Medicine 04/18/24
--- OUTSIDE RECORDS SUMMARY | 2025-05-15 20:26 | XMS_ITS | Clinical Summary ---
Author Organization [facility] Address [address] [address] Phone Care Team Providers Care Parts Room Clerk Name Role Phone Andi Burns MD [...] EDT) SODIUM 141 133 - 146 mmol/L [facility] CHLORIDE 100 96 - 108 mmol/L [facility] POTASSIUM 4.8 3.3 - 5.1 mmol/L [facility] CO2 28 21 - 35 mmol/L [facility] BUN 23(H) 6 - 19 mg/dL [facility] CREATININE 0.90 0.5 - 1.5 mg/dL [facility] GLUCOSE 188(H) 70 - 99 mg/dL [facility] CALCIUM 9.4 8.4 - 10.3 mg/dL [facility] EGFR 75 >59 mL/min/1.7 3m2 [facility] Comment:Estimated glomerular filtration rate calculated using the CKD-EPI refit equation. ANION GAP 18 10 - 20 mmol/L [facility] Blood 03/17/2022 7:15 AM EDT 03/17/2022 7:22 AM EDT Anita David MD LAB BLOOD BKR ORDERA BLES Final Result [facility] [address] [place] [address] from Last 3 Months or Most Recently [...] [facility] Care Teams Parts Room Clerk Relationship Specialty Start Date End Date Andi Burns MD [address] [place] [address] PCP - General Internal Medicine 03/17/22 Additional Source Comments The information contained in this document represents components of the legal health record. It is not the complete legal health record.[facility]
--- OUTSIDE RECORDS SUMMARY | 2025-05-15 20:26 | XMS_ITS | Encounter Summary ---
Author Organization [facility] Address [address] [facility] [address] [place] [address] Phone Care Team Providers Care Blood Bank Assistant Name Role Phone Pcp, Unknown Primary Care Provider Andi Mendoza MD Primary Care Provider + Andi Burns MD Primary Care Provider + Encounter Details Date Type Department Care Team (Latest Contact Info) Description 02/11/2020 Transcribe Orders Virtual Department [address] [place] [address] Surinder Magdaleno MD 8 [facility] [address] [place] [address] Encounter for laboratory testing for COVID-19 virus [...] 2:48 PM EDT) Specimen Source 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) [facility] COVID Testing Status Sent to [facility] Other 02/13/2020 2:48 PM EDT 02/13/2020 3:18 PM EDT us Surinder Magdaleno MD LAB GENERAL ORDERABLES F inal Result [facility] [address] [place] [address] documented in this encounter Visit Diagnoses Diagnosis Encounter for laboratory testing for COVID-19 virus- Primary documented in this encounter Additional Health Concerns Infection Onset Date Last Indicated Resolved Time CoV-Exposed Comment:Recent close contact 03/02/2020 03/02/2020 03/16/2020 1:23 AM EDT documented as of this encounter Care Teams Blood Bank Assistant Relationship Specialty Start Date End Date Pcp, Unknown PCP - General 12/15/19 03/02/20 Andi Burns MD [address] [place] [address] PCP - General Internal Medicine 03/03/20 03/16/22 Andi Burns MD [address] [place] [phone] PCP - General Internal Medicine 03/17/22 documented as of this encounter Additional Source Comments The information contained in this document represents components of the legal health record. It is not the complete legal health record.[facility]
--- OUTSIDE RECORDS SUMMARY | 2025-05-15 20:26 | XMS_ITS | Encounter Summary ---
Author Organization [facility] Address [address] [facility] [address] [place] [address] Phone Care Team Providers Care Music Composition Teacher Name Role Phone Pcp, Unknown Primary Care Provider Andi Mendoza MD Primary Care Provider + Andi Burns MD Primary Care Provider + Encounter Details Date Type Department Care Team (Latest Contact Info) Description 03/02/2020 Transcribe Orders Virtual Department [address] [place] [address] Surinder Magdaleno MD 8 [facility] [address] [place] [address] Encounter for laboratory testing for COVID-19 virus [...] 4:16 PM EDT) Specimen Source 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) [facility] COVID Testing Status Sent to [facility] Micro Lab [facility] Other 03/07/2020 4:16 PM EDT 03/07/2020 5:43 PM EDT us Surinder Magdaleno MD LAB GENERAL ORDERABLES F inal Result [facility] [address] [place] [address] documented in this encounter Visit Diagnoses Diagnosis Encounter for laboratory testing for COVID-19 virus- Primary documented in this encounter Additional Health Concerns Infection Onset Date Last Indicated Resolved Time CoV-Exposed Comment:Recent close contact 03/02/2020 03/02/2020 03/16/2020 1:23 AM EDT documented as of this encounter Care Teams Music Composition Teacher Relationship Specialty Start Date End Date Pcp, Unknown PCP - General 12/15/19 03/02/20 Andi Burns MD [address] [place] [address] PCP - General Internal Medicine 03/03/20 03/16/22 Andi Burns MD [address] [place] [phone] PCP - General Internal Medicine 03/17/22 documented as of this encounter Additional Source Comments The information contained in this document represents components of the legal health record. It is not the complete legal health record.[facility]
--- OUTSIDE RECORDS SUMMARY | 2025-05-15 20:26 | XMS_ITS | Patient Health Record ---
Author Organization [facility] Address [address] [place] [address] Care Team Providers [employer] Consultant Name Role Phone RuthyLydia scott Primary Care Provider Unavailab Carlos Enrique Lazo Unavailable [phone] Allergies No Known Allergies Results Component Value [...] Problem Acquired hammer toe of right foot (214243482646821 5) Other hammer toe(s) (acquired), right foot (M20.41) Active confirmed Problem Acquired hammer toe of left foot (551494172282798 3) Other hammer toe(s) (acquired), left foot (M20.42) Active confirmed Problem Type II diabetes mellitus without complication (377853619) Type 2 diabetes mellitus without complication (E11.9) Active confirmed Vital Signs Blood pressure diastolic 90 mm Hg 02/12/2025 Height 5ft 6in in 02/12/2025 Blood pressure systolic 145 mm Hg 02/12/2025 Weight 224 lbs 02/12/2025 BMI 36.15 kg/m2 02/12/2025 Procedures Procedure Date Ordered Date Performed Result Body Sit e 83252-XTFJVNP NAIL, 6 OR MORE 11/12/2024 N/A [id number] NAIL, 6 OR MORE 02/12/2025 N/A Encounters Encounter Location Date Provider Diagnosis [facility] [address] [place] [id number] 11/12/2024 Carlos Enriquesid EscuderoCrista Pain in right toe(s) M79.674 ; Tinea unguium B35.1 ; Pain in left toe(s) M79.675 ; Type 2 diabetes mellitus without complication E11.9 ; Other hammer toe(s) (acquired), right foot M20.41 and Other hammer toe(s) (acquired), left foot M20.42 [facility] [address] [address] 02/12/2025 Carlos Enrique Tobin Pain in right toe(s) M79.674 ; Tinea unguium B35.1 ; Pain in left toe(s) M79.675 ; Type 2 diabetes mellitus without complication E11.9 ; Other hammer toe(s) (acquired), right foot M20.41 and Other hammer toe(s) (acquired), left foot M20.42 [facility] [address] [place] [address] 08/19/2024 Carlos Enrique Tobin Assessments Encounter Date [...] Treatment Pending Test Test Name Order Date 85156-[id number] NAIL, 6 OR MORE 10/11/2012 [id number] NAIL, 6 OR MORE 12/31/2012 [id number] NAIL, 6 OR MORE 11/12/2024 99783-TOIGJSA NAIL, 6 OR MORE 02/12/2025 95073-Gtgzwfqs Plate 10/11/2012 57937-ZPKC SKIN LESIONS, 2 TO 4 01/01/20 13 Next Appt Details Provider Name:Carlos Enrique Tobin , 05/25/2025 04:00:00 PM, [address] [facility], [facility] [address], [place], [address], Insurance Providers Payer Name Payer Address Payer Phone Subscriber Number Group Number Insured Name Patient Relationship to Insured Coverage Start Date Coverage End Date [employer] [address] [address] [place] [address] [id number] Lisette Ortega Self - patient is the insured Medical (General) History Medical History History ICD Code diabetic thyroid disorder hypertension measles Anxiety Back,Hip,and Knee pain Cataracts High Blood Pressure Mumps Chicken pox Hypercholesterolemia Surgical History Surgery Date(Month/Year) eye procedure 10/16/24 tubal ligation 1989 kidney stones 2017 Thyroid removal Surgery 2019 Hospitalization History Reason Date(Month/Year) [facility] for high blood pressure 05/2012
== END 2025-05-15 15:43 | disposition home or self-care (01) ==
LOC: HO.MAMMO 15:42
DX: Z12.31 Encounter for screening mammogram for malignant neoplasm of breast (principal)
CPT/HCPCS: 77063; 77067

== ENCOUNTER → 2025-05-15 16:30 | Outpatient (BNV) | payer OTHER, SELFPAY | PROVIDERS: Visit Provider Internal Medicine | DX: Z12.31 Encounter for screening mammogram for malignant neoplasm of breast (principal) | CPT/HCPCS: 77063; 77067 ==